=== PATIENT | male | born 1955 | race African-American/Black ===

== ENCOUNTER 2018-05-19 23:39 | Emergency (ER) | payer OTHER ==
[2018-05-19 23:50] VITALS: BP 149/90; PULSE 82; TEMP 98; BMI 35.7
--- NOTE | 2018-05-20 00:05 | PDOC ---
History of Present Illness - General Chief Complaint: Shortness of Breath Stated Complaint: R ARM SWELLING Time Seen by Provider: 05/20/18 00:04 - History of Present Illness Initial Comments: 05/20/18 00:07 The patient denies chest pain, shortness of breath, headache and dizziness. Denies fever, chills, nausea, vomit, diarrhea and constipation. Denies dysuria, frequency, urgency and hematuria. Allergies: Past History - Past Medical History Allergies/Adverse Reactions: Allergies Allergy/AdvReac Type Severity Reaction Status Date / Time No Known Allergies Allergy Verified 05/19/18 23:50 - Suicide/Smoking/Psychosocial Hx Smoking History: Never smoked Have you smoked in the past 12 months: No Information on smoking cessation initiated: No Hx Alcohol Use: No Drug/Substance Use Hx: No Review of Systems - Review of Systems Comments:: 05/20/18 00:07 GENERAL/CONSTITUTIONAL: No fever or chills. No weakness. HEAD, EYES, EARS, NOSE AND THROAT: No change in vision. No ear pain or discharge. No sore throat. CARDIOVASCULAR: No chest pain or shortness of breath RESPIRATORY: No cough, wheezing, or hemoptysis. GASTROINTESTINAL: No nausea, vomiting, diarrhea or constipation. GENITOURINARY: No dysuria, frequency, or change in urination. MUSCULOSKELETAL: No joint or muscle swelling or pain. No neck or back pain. SKIN: No rash NEUROLOGIC: No headache, vertigo, loss of consciousness, or change in strength/ sensation. ENDOCRINE: No increased thirst. No abnormal weight change HEMATOLOGIC/LYMPHATIC: No anemia, easy bleeding, or history of blood clots. ALLERGIC/IMMUNOLOGIC: No hives or skin allergy. *Physical Exam - Vital Signs Last Vital Signs Temp Pulse Resp BP Pulse Ox 98.0 F 82 16 149/90 90 L 05/19/18 23:48 05/19/18 23:48 05/19/18 23:48 05/19/18 23:48 05/19/18 23:48 - Physical Exam Comments: 05/20/18 00:07 GENERAL: Awake, alert, and fully oriented, in no acute distress HEAD: No signs of trauma, normocephalic, atraumatic EYES: PERRLA, EOMI, sclera anicteric, conjunctiva clear ENT: Auricles normal inspection, hearing grossly normal, nares patent, oropharynx clear without exudates. Moist mucosa NECK: Normal ROM, supple, no lymphadenopathy, JVD, or masses LUNGS: No distress, speaks full sentences, clear to auscultation bilaterally HEART: Regular rate and rhythm, normal S1 and S2, no murmurs, rubs or gallops, peripheral pulses normal and equal bilaterally. ABDOMEN: Soft, nontender, normoactive bowel sounds. No guarding, no rebound. No masses EXTREMITIES: Normal inspection, Normal range of motion, no edema. No clubbing or cyanosis. NEUROLOGICAL: Cranial nerves II through XII grossly intact. Normal speech, normal gait, no focal sensorimotor deficits SKIN: Warm, Dry, normal turgor, no rashes or lesions noted. *DC/Admit/Observation/Transfer - Referrals Referrals: Gregory Hester MD [Primary Care Provider] - - Patient Instructions - Post Discharge Activity
== END 2018-05-20 00:11 | disposition left against medical advice (07) ==
LOC: JER 23:39
DX: Z53.21 Procedure and treatment not carried out due to patient leaving prior to being seen by health care provider (principal)
CPT/HCPCS: 99281-25

== ENCOUNTER 2019-01-30 16:52 | Inpatient (IN) | payer OTHER ==
--- NOTE | 2019-01-30 17:42 | PDOC ---
Rapid Medical Evaluation Chief Complaint: Shortness of Breath Medical Evaluation: Allergies Allergy/AdvReac Type Severity Reaction Status Date / Time No Known Allergies Allergy Verified 01/30/19 17:36 01/30/19 17:37 I have performed a brief in-person evaluation of this patient. The patient presents with a chief complaint of: SOB, cough, worsening x 2 weeks Pertinent physical exam findings: 3 word sentences, Pursed lipped , retractions dim breath sounds I have ordered the following: EkG The patient will proceed to the ED for further evaluation. taken into ER for eval. 01/30/19 17:38 01/30/19 17:39 01/30/19 17:42 Discharge Disposition - Diagnosis SOB (shortness of breath) - Referrals - Patient Instructions - Post Discharge Activity
[2019-01-30] MEDS ORDERED: ALBUTEROL SO4 2.5/IPRATROPIUM 0.5 INH SOL 3 ML VIAL.NEB. NEB ONE ×2 (18:00→18:06)
--- NOTE | 2019-01-30 18:03 | PDOC ---
Attending Attestation - Resident Resident Name: Bhargav Nguyễn - HPI HPI: 01/30/19 18:38 Pt presents to the ED complaining of the acute onset of shortness of breath and and leg swelling unrelieved by nebs at home. Differential includes COPD exacerbation, CHF, less likely PE or PNA. Will treat with nebs and steroids, check labs, EKG and CXR. Will admit to medicine. <Pooja Irby - Last Filed: 01/30/19 18:37> - HPI HPI: The patient is a 63 year old male, with a significant PMH of COPD and asthma, who presents to the emergency department today complaining of shortness of breath for one week. Patient reports that his dyspnea on exertion has progressively worsened from baseline over the past week. Patient denies using O2 at home, but does endorse using his nebulizer. He reports bilateral lower extremity edema. Dr. Beckford advised patient to come to ED for treatment of his low O2 levels. The patient denies chest pain, headache and dizziness. Denies fever, chills, nausea, vomit, diarrhea and constipation. Denies dysuria, frequency, urgency and hematuria. Allergies: NKA Past surgical history: Social history: No reported PCP: Dr. Gregory Hester Computer Discovery Teacher: Dr. Gregory Beckford 01/30/19 19:35 - Physicial Exam PE: GENERAL: Awake, alert, and fully oriented, in no acute distress HEAD: No signs of trauma EYES: PERRLA, EOMI, sclera anicteric, conjunctiva clear ENT: Auricles normal inspection, hearing grossly normal, nares patent, oropharynx clear without exudates. Moist mucosa NECK: Normal ROM, supple, no lymphadenopathy, JVD, or masses LUNGS: +Tachypneic. +Diffuse wheezing bilaterally. +Speaking in short sentences with mild conversational dyspnea. No crackles HEART: Regular rate and rhythm, normal S1 and S2, no murmurs, rubs or gallops ABDOMEN: Soft, nontender, normoactive bowel sounds. No guarding, no rebound. No masses EXTREMITIES: +1+ pitting edema to the mid calves bilaterally. Normal range of motion. No clubbing or cyanosis. No cords, erythema, or tenderness NEUROLOGICAL: Cranial nerves II through XII grossly intact. Normal speech, normal gait SKIN: Warm, Dry, normal turgor, no rashes or lesions noted. 01/30/19 19:35 - Medical Decision Making EXAM#: TYPE/EXAM: RESULT: [id number] RAD/CHEST X-RAY PORTABLE* Shortness of breath. Since prior chest x-ray dated 10/12/2017, the cardiac silhouette appears to be slightly enlarged likely due to magnification. There are minimal bibasal atelectatic changes. The rest of the lung is clear. Mediastinum and visualized osseous structures appear intact Impression: Minimal bibasal atelectatic changes without gross evidence of infiltrates. Reported By: Richie Pyle MD 19:35 Documentation prepared by JENNIFER Silverio, acting as medical anthropologist for Job Hubbard MD. 01/30/19 19:36 <Callie Thompson - Last Filed: 01/30/19 19:38>
[2019-01-30] MEDS ORDERED: methylPREDNISolone NA SUCC 125 MG/2 ML VIAL IVPUSH ONE (18:06)
[2019-01-30] MEDS ORDERED: methylPREDNISolone NA SUCC 125 MG/2 ML VIAL ONE (18:25)
[2019-01-30 18:37] LABS: BASO % 0.8 % (0-2.0); HEMATOCRIT 41.4 % (35.4-49); HEMOGLOBIN 13.2 GM/dL (11.7-16.9); MCH 28.5 pg (25.7-33.7); MEAN CELL VOLUME 89.3 fl (80-96); MEAN PLT VOLUME 8.2 fl (7.5-11.1); MONO % 9.2 % (3.8-10.2); PLATELET COUNT 266 K/MM3 (134-434); RBC 4.64 M/mm3 (4.00-5.60); RDW 16.9 % (11.9-15.9); WHITE BLOOD COUNT 6.8 K/mm3 (4.0-10.0)
[2019-01-30 19:03] LABS: ALBUMIN 3.7 g/dl (3.4-5.0); ALK PHOS 98 U/L (45-117); ANION GAP 5 MMOL/L (8-16); BILIRUBIN,TOTAL 0.2 mg/dL (0.2-1); BLOOD UREA NITROGEN 10 mg/dL (7-18); CALCIUM 8.8 mg/dL (8.5-10.1); CHLORIDE 102 mmol/L (98-107); CO2 35 mmol/L (21-32); CREATININE 1.1 mg/dL (0.55-1.3); GLUCOSE,RANDOM 105 mg/dL (74-106); MAGNESIUM 1.9 mg/dL (1.8-2.4); N-TERMINAL BNP 296.8 pg/ml (5-125); POTASSIUM 4.2 mmol/L (3.5-5.1); SGOT/AST 13 U/L (15-37); SGPT/ALT 19 U/L (13-61); SODIUM 142 mmol/L (136-145)
[2019-01-30] MEDS ORDERED: CEFTRIAXONE 1,000 MG in DEXTROSE 5%-WATER - 50 ML IVPB ONE (19:23)
[2019-01-30] MEDS ORDERED: AZITHROMYCIN IVPB 500 MG in DEXTROSE 5%-WATER - 250 ML IVPB ONE (19:23)
--- NOTE | 2019-01-30 19:23 | PDOC ---
History of Present Illness - General Chief Complaint: Shortness of Breath Stated Complaint: PCP SENT/DIFFICULTY BREATHING Time Seen by Provider: 01/30/19 17:58 History Source: Patient Exam Limitations: No Limitations - History of Present Illness Initial Comments: 01/30/19 19:19 The patient is a 63M with a PMH of COPD, asthma who was sent by formula maker ( Dr. Beckford) for admission for SOB. The patient states that he's had worsening SOB for the past week and a half. He admits to BOBO but denies orthopnea. He admits to current SOB at rest. He denies CP, fever, chills, nausea, vomiting. Past History - Past Medical History Allergies/Adverse Reactions: Allergies Allergy/AdvReac Type Severity Reaction Status Date / Time No Known Allergies Allergy Verified 01/30/19 17:36 - Suicide/Smoking/Psychosocial Hx Smoking History: Current every day smoker Have you smoked in the past 12 months: No Number of Cigarettes Smoked Daily: 40 Information on smoking cessation initiated: No Hx Alcohol Use: No Drug/Substance Use Hx: No Review of Systems - Review of Systems Able to Perform ROS?: Yes Comments:: 01/30/19 19:25 GENERAL/CONSTITUTIONAL: No fever or chills. No weakness. HEAD, EYES, EARS, NOSE AND THROAT: No change in vision. No ear pain or discharge. No sore throat. CARDIOVASCULAR: No chest pain, palpitations, or lightheadedness. RESPIRATORY: + for SOB. No cough or hemoptysis. GASTROINTESTINAL: No nausea, vomiting, diarrhea, constipation, or abdominal pain. GENITOURINARY: No dysuria, frequency, hematuria, or change in urination. MUSCULOSKELETAL: No joint or muscle swelling or pain. No neck or back pain. SKIN: No rash or lesions. NEUROLOGIC: No headache, numbness, tingling, focal weakness, loss of consciousness, or change in strength/sensation. Is the patient limited Cymraes proficient: No *Physical Exam - Vital Signs Last Vital Signs Temp Pulse Resp BP Pulse Ox 98.0 F 81 18 141/82 100 01/30/19 17:36 01/30/19 18:44 01/30/19 18:44 01/30/19 17:36 01/30/19 18:44 - Physical Exam Comments: 01/30/19 19:28 GENERAL: Well developed, well nourished. Awake and alert. In mild distress. HEENT: Normocephalic, atraumatic. Hearing grossly normal. Moist mucous membranes. PERRLA, EOMI. No conjunctival pallor. NECK: Supple. Full ROM. No JVD. CARDIOVASCULAR: Regular rate and rhythm. No murmurs, rubs, or gallops. Distal pulses are 2+ and symmetric. PULMONARY: Mild respiratory distress. Diffuse wheezing in b/l lung marti with decreased breath sounds in bases. ABDOMINAL: Soft. Non-tender. Non-distended. No rebound or guarding. GENITOURINARY: No CVA tenderness bilaterally. MUSCULOSKELETAL: Normal range of motion at all joints. No bony deformities or tenderness. EXTREMITIES: No cyanosis. No clubbing. No edema. No calf tenderness or swelling. SKIN: Warm and dry. Normal capillary refill. No rashes. No jaundice. NEUROLOGICAL: Alert, awake, appropriate. Cranial nerves 2-12 grossly intact. Normal speech. Gait is normal without ataxia. PSYCHIATRIC: Cooperative. Good eye contact. Appropriate mood and affect. Moderate Sedation - Procedure Monitoring Vital Signs: Procedure Monitoring Vital Signs Temperature 98.0 F 01/30/19 17:36 Pulse Rate 81 01/30/19 18:44 Respiratory Rate 18 01/30/19 18:44 Blood Pressure 141/82 01/30/19 17:36 O2 Sat by Pulse Oximetry (%) 100 01/30/19 18:44 ED Treatment Course - LABORATORY CBC & Chemistry Diagram: 01/30/19 17:15 01/30/19 17:15 - ADDITIONAL ORDERS Additional order review: Laboratory Results 01/30/19 17:15 Sodium 142 Potassium 4.2 Chloride 102 Carbon Dioxide 35 H Anion Gap 5 L BUN 10 Creatinine 1.1 Creat Clearance w eGFR > 60 Random Glucose 105 Calcium 8.8 Magnesium 1.9 Total Bilirubin 0.2 AST 13 L ALT 19 Alkaline Phosphatase 98 Creatine Kinase 404 H Troponin I < 0.02 B-Natriuretic Peptide 296.8 H Total Protein 8.0 Albumin 3.7 01/30/19 17:15 RBC 4.64 MCV 89.3 MCHC 32.0 RDW 16.9 H MPV 8.2 Neutrophils % 62.0 Lymphocytes % 22.0 Monocytes % 9.2 Eosinophils % 6.0 H Basophils % 0.8 - RADIOLOGY Radiology Studies Ordered: Category Date Time Status CHEST X-RAY PORTABLE* [RAD] Stat Radiology 01/30/19 18:05 Taken - Medications Given in the ED: ED Medications Discontinued Medications Generic Name Dose Route Start Last Admin Trade Name Gaby PRN Reason Stop Dose Admin Albuterol/Ipratropium 3 amp 01/30/19 18:06 01/30/19 18:07 Duoneb - NEB 01/30/19 18:07 3 amp ONCE ONE Administration Methylprednisolone Sodium Succinate 125 mg 01/30/19 18:06 01/30/19 18:30 Solu-Medrol - IVPUSH 01/30/19 18:07 125 mg ONCE ONE Administration Medical Decision Making - Medical Decision Making 01/30/19 19:29 The patient is a 63M with a PMH of COPD, asthma who presents to the ER via PCP' s recommendations for SOB. Will treat as COPD exacerbation. Pt much more comfortable after treatments. Will admit for hypoxia workup. *DC/Admit/Observation/Transfer Diagnosis at time of Disposition: SOB (shortness of breath) - Discharge Dispostion Condition at time of disposition: Guarded Decision to Admit order: Yes - Referrals Referrals: Gregory Hester MD [Primary Care Provider] - - Patient Instructions - Post Discharge Activity
[2019-01-30 19:34] LABS: INR 1.05 (0.83-1.09); PROTHROMBIN TIME (PATIENT) 12.4 SEC (9.7-13.0)
[2019-01-30 19:48] LABS: VENOUS PH 7.34 (7.32-7.42)
[2019-01-30 19:50] LABS: VENOUS PC02 64.8 mmHg (38-52)
[2019-01-30 20:09] LABS: ARTERIAL BLD GAS O2 SATURATION 87.5 % (90-98.9); ARTERIAL BLOOD GAS BASE EXCESS 7.7 meq/l (-2-2); ARTERIAL BLOOD GAS PO2 60.3 mmHg (80-100); ARTERIAL BLOOD GAS pH 7.33 (7.35-7.45)
[2019-01-30 20:10] LABS: ALLENS TEST POSITIVE
[2019-01-30 20:11] LABS: ARTERIAL BLOOD GAS PCO2 68.2 mmHg (35-45)
[2019-01-30] MEDS ORDERED: CEFTRIAXONE 1 GM/50 ML BAG ONE (20:41)
[2019-01-30] MEDS ORDERED: FUROSEMIDE 40 MG/4 ML INJECTABLE VIAL IVPUSH ONE (21:04)
[2019-01-30] MEDS ORDERED: AZITHROMYCIN IVPB 500 MG/250 ML BAG IVPB ONE (21:20)
[2019-01-30] MEDS ORDERED: FUROSEMIDE 40 MG/4 ML INJECTABLE VIAL ONE (21:21)
[2019-01-30] MEDS ORDERED: HEPARIN NA (PORCINE) 5,000 UNITS/ML 1ML VIAL SQ SCH (22:00)
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
[2019-01-31 06:46] LABS: BASO % 0.2 % (0-2.0); HEMATOCRIT 41.8 % (35.4-49); HEMOGLOBIN 13.3 GM/dL (11.7-16.9); LYMPH % 10.4 % (8-40); MCH 28.7 pg (25.7-33.7); MCHC 31.9 g/dl (32.0-35.9); MEAN CELL VOLUME 90.2 fl (80-96); MEAN PLT VOLUME 8.6 fl (7.5-11.1); MONO % 1.3 % (3.8-10.2); NEUT % 88.1 % (42.8-82.8); PLATELET COUNT 272 K/MM3 (134-434); RBC 4.63 M/mm3 (4.00-5.60); RDW 16.6 % (11.9-15.9); WHITE BLOOD COUNT 6.1 K/mm3 (4.0-10.0)
[2019-01-31] MEDS: ALBUTEROL SO4 2.5/IPRATROPIUM 0.5 INH SOL 3 ML VIAL.NEB. NEB SCH ×4 (08:00→20:00)
[2019-01-31] MEDS ORDERED: ALBUTEROL SO4 0.083% IH SOL 2.5 MG/3 ML VIAL.NEB. NEB SCH ×2 (08:00)
[2019-01-31 08:11] LABS: ANION GAP 2 MMOL/L (8-16); BLOOD UREA NITROGEN 13 mg/dL (7-18); CALCIUM 9.1 mg/dL (8.5-10.1); CHLORIDE 98 mmol/L (98-107); CHOLESTEROL 149 mg/dL (50-200); CO2 39 mmol/L (21-32); CREATININE 0.9 mg/dL (0.55-1.3); GLUCOSE,RANDOM 124 mg/dL (74-106); HDL CHOLESTEROL 58 mg/dL (40-60); SODIUM 138 mmol/L (136-145); TRIGLYCERIDES 51 mg/dL (0-150)
[2019-01-31] MEDS ORDERED: METOPROLOL TARTRATE 25 MG TABLET (FP) PO SCH (10:00)
[2019-01-31] MEDS ORDERED: methylPREDNISolone NA SUCC 40 MG/1 ML VIAL IVPUSH SCH (10:00)
[2019-01-31] MEDS ORDERED: TIOTROPIUM BROMIDE 2.5 MCG (SPIRIVA) RESPIMAT INHALER IH SCH (10:00)
[2019-01-31] MEDS: LISINOPRIL 10 MG TABLET (FP) PO SCH (10:08)
[2019-01-31] MEDS: AZITHROMYCIN 250 MG TABLET PO SCH (10:08)
[2019-01-31] MEDS: POTASSIUM CHLORIDE TABS 10 MEQ TABLET.ER (FP) PO SCH (10:08)
--- NOTE | 2019-01-31 10:33 | PN ---
Teaching Attending Note Name of Resident: Fco Duong ATTENDING PHYSICIAN STATEMENT I saw and evaluated the patient. I reviewed the resident's note and discussed the case with the resident. I agree with the resident's findings and plan as documented. SUBJECTIVE:states breathing is much improved. was recently diagnosed with " heart failure" 6 months ago when admitted to [facility] but has never been admitted for breathing issues. was not started on any new medications since his last hospitalization. denies CP, fever, chills, N/V/C/D, does not have orthopnea as he always sleeps on 2 pillows OBJECTIVE: Last Vital Signs Temp Pulse Resp BP Pulse Ox 97.6 F 84 20 153/75 96 01/31/19 10:10 01/31/19 10:10 01/31/19 10:10 01/31/19 10:10 01/31/19 03:19 Intake & Output 01/28/19 01/29/19 01/30/19 01/31/19 23:59 23:59 23:59 23:59 Intake Total 690 Balance 690 Weight 244 lb 236 lb General NAD CV S1 S2 RRR no murmur/rub/gallop Lungs diffuse expiratory wheezing Abdomen soft NT/ND obese Extremities no pedal edema ASSESSMENT AND PLAN: 63yo M with PMH CHF, HTN and COPD presented to the ER wtih progressively worsening SOB x2 weeks and founf to be in hypercapnic respiratory failure 1. Acute hypercapnic respiratory failure- due to COPD exacerbation. was on bipap overnight and now on 2L NC saturating 95%. repeat ABG CT chest ordered. cont wtih Medrol 60mg Q6H, inhalers and nebulizers. 2. Heart failure- unknown if systolic vs diastolic. does not appear to be volume overloaded at this time. with normal BNP. echo ordered by night team and will follow up. cardio consulted. will confirm home medications and re-start them. would hold off on lasix IV at this time. cardiac markers neg x2 3. HTN- slightly above goal. will titrate medications as needed 4. DVT ppx- lovenox
--- NOTE | 2019-01-31 10:54 | PN ---
Progress Note (short form) - Note Progress Note: PULMONARY CONSULTATION DICTATED 01/31/19 IMP ACUTE ON CHRONIC HYPOXEMIC/HYPERCAPNEIC RESPIRATORY FAILURE ADVANCED COPD WITH ACUTE EXACERBATION HTN ? H/O CHF TOBACCO ABUSE LIKELY JORGE PLAN IV STEROIDS INHALED BRONCHODILATORS SUPPLEMENTAL O2 NIPPV NEEDED LASIX PO CARDIOLOGY EVALUATION DR VEE Problem List - Problems (1) Acute on chronic respiratory failure with hypoxia and hypercapnia Code(s): J96.21 - ACUTE AND CHRONIC RESPIRATORY FAILURE WITH HYPOXIA; J96.22 - ACUTE AND CHRONIC RESPIRATORY FAILURE WITH HYPERCAPNIA (2) SOB (shortness of breath) Code(s): R06.02 - SHORTNESS OF BREATH (3) COPD exacerbation Code(s): J44.1 - CHRONIC OBSTRUCTIVE PULMONARY DISEASE W (ACUTE) EXACERBATION (4) HTN (hypertension) Code(s): I10 - ESSENTIAL (PRIMARY) HYPERTENSION (5) Tobacco abuse Code(s): Z72.0 - TOBACCO USE (6) Tobacco abuse counseling Code(s): Z71.6 - TOBACCO ABUSE COUNSELING
--- NOTE | 2019-01-31 11:01 | ECHO ---
Name: MAYI COOLEY Exam:Adult Echocardiogram Study Date: 01/31/2019 10:15 AM Age: 63 yrs Reason For Study: Evaluate for CHF Height: 69 in Weight: 244 lb BSA: 2.2 m2 MMode/2D Measurements & Calculations IVSd: 1.1 cm ACS: 1.9 cm LVIDd: 4.4 cm LVIDs: 3.4 cm LVPWd: 1.3 cm EDV(Teich): 87.3 ml LVOT diam: 2.0 cm ESV(Teich): 47.5 ml RV S Maurizio: 13.2 cm/sec Doppler Measurements & Calculations Med Peak E' Maurizio: 8.4 cm/sec Lat Peak E' Maurizio: 16.4 cm/sec Procedure The study was technically difficult with many images being suboptimal in quality. Left Ventricle Left ventricular systolic function is grossly normal. Ejection Fraction = 50-55%. Regional wall motio n abnormalities cannot be excluded due to limited visualization. Right Ventricle The right ventricle is grossly normal size. The right ventricular systolic function is grossly normal . Atria Normal left and right atrial size and function. Mitral Valve The mitral valve is grossly normal. There is no mitral valve stenosis. There is mild mitral regurgita tion. Tricuspid Valve The tricuspid valve is not well visualized, but is grossly normal. Aortic Valve There is mild aortic sclerosis.;. No hemodynamically significant valvular aortic stenosis. No aortic regurgitation is present. Pulmonic Valve The pulmonic valve is not well visualized. Great Vessels The aortic root is normal size. Pericardium/Pleura There is no pericardial effusion. Interpretation Summary The study was technically difficult with many images being suboptimal in quality. Regional wall motion abnormalities cannot be excluded due to limited visualization. Left ventricular systolic function is grossly normal. Ejection Fraction = 50-55%. There is mild mitral regurgitation. There is mild aortic sclerosis.; There is no pericardial effusion. MD Urbina *Anum 01/31/2019 11:01 AM
[2019-01-31] MEDS ORDERED: ALBUTEROL SO4 2.5/IPRATROPIUM 0.5 INH SOL 3 ML VIAL.NEB. NEB PRN (11:14)
[2019-01-31] MEDS ORDERED: PT OWN MED DRAWER 7, Y5N ONE ×4 (11:16→17:52)
[2019-01-31] MEDS: ENOXAPARIN NA (PORCINE) 40 MG/0.4 ML DISP.SYRIN SQ SCH (11:31)
[2019-01-31] MEDS: methylPREDNISolone NA SUCC 40 MG/1 ML VIAL IVPUSH SCH ×3 (11:31→22:45)
[2019-01-31] MEDS: INSULIN SLIDING SCALE (NOVOLOG) 1 VIAL SQ SCH ×3 (11:40→22:45)
[2019-01-31 12:17] LABS: ARTERIAL BLD GAS O2 SATURATION 88.6 % (90-98.9); ARTERIAL BLOOD GAS PCO2 62.1 mmHg (35-45); ARTERIAL BLOOD GAS PO2 58.5 mmHg (80-100)
[2019-01-31 12:19] LABS: ALLENS TEST POSITIVE
--- NOTE | 2019-01-31 12:44 | PN ---
Progress Note, Physician Chief Complaint: patient seen and examined sitting up in bed says his breathing is better - Current Medication List Current Medications: Active Medications Albuterol Sulfate (Ventolin 0.083% Nebulizer Soln -) 1 amp NEB Q4H PRN PRN Reason: SHORT OF BREATH/WHEEZING Albuterol/Ipratropium (Duoneb -) 1 amp NEB RQID [facility] Last Admin: 01/31/19 11:40 Dose: 1 amp Atorvastatin Calcium (Lipitor -) 80 mg PO HS [facility] Azithromycin (Zithromax -) 500 mg PO DAILY [facility] Last Admin: 01/31/19 10:08 Dose: 500 mg Enoxaparin Sodium (Lovenox -) 40 mg SQ DAILY [facility] Last Admin: 01/31/19 11:31 Dose: 40 mg Ferrous Sulfate (Feosol -) 325 mg PO DAILY [facility] Furosemide (Lasix -) 40 mg PO DAILY [facility] Insulin Aspart (Novolog Vial Sliding Scale -) 0 vial SQ ACHS [facility]; Protocol Last Admin: 01/31/19 11:40 Dose: Not Given Lisinopril (Prinivil) 10 mg PO DAILY [facility] Last Admin: 01/31/19 10:08 Dose: 10 mg Methylprednisolone Sodium Succinate (Solu-Medrol -) 60 mg IVPUSH Q6H-IV [facility] Last Admin: 01/31/19 11:31 Dose: 60 mg Nicotine (Nicoderm Patch -) 14 mg TD ONCE ONE Stop: 01/31/19 19:49 Nicotine (Nicoderm Patch -) 21 mg TD [facility] Potassium Chloride (K-Dur -) 10 meq PO DAILY [facility] Last Admin: 01/31/19 10:08 Dose: 10 meq Ranitidine HCl (Zantac -) 300 mg PO DAILY [facility] - Objective Vital Signs: Vital Signs Temperature 97.6 F 01/31/19 10:10 Pulse Rate 84 01/31/19 10:10 Respiratory Rate 20 01/31/19 10:10 Blood Pressure 153/75 01/31/19 10:10 O2 Sat by Pulse Oximetry (%) 96 01/31/19 03:19 Constitutional: Yes: Calm Cardiovascular: Yes: Regular Rate and Rhythm, S1, S2 Respiratory: Yes: Wheezes Gastrointestinal: Yes: Normal Bowel Sounds, Soft Edema: No Neurological: Yes: Alert, Oriented Labs: CBC, BMP 01/31/19 06:00 01/31/19 06:00 INR, PTT INR 1.05 (0.83-1.09) 01/30/19 17:15 Problem List - Problems (1) SOB (shortness of breath) Assessment/Plan: oxygen steroids iv abx chest ct done report pending lovenox lasix echo report noted EF 55% left ventricle systolic function is normal Code(s): R06.02 - SHORTNESS OF BREATH
[2019-01-31] MEDS ORDERED: DEXTROSE 5%-WATER - 50 ML IVPB ONE (13:12)
[2019-01-31] MEDS ORDERED: cefTRIAXone SODIUM 1 GM VIAL ONE (13:12)
--- NOTE | 2019-01-31 13:18 | PN ---
Physical Exam: SUBJECTIVE: Patient seen and examined at bedside. no acute events since admission. pt feels better. states breathing is much improved. meds have been reconciled. denies CP, fever, chills, N/V/C/D, does not have orthopnea as he always sleeps on 2 pillows OBJECTIVE: Vital Signs Period Temp Pulse Resp BP Sys/Felix Pulse Ox Last 24 Hr 97.6 F-98.9 F 81-90 18-30 141-158/75-98 88-100 GENERAL: The patient is awake, alert, and fully oriented, in no acute distress. HEAD: Normal with no signs of trauma. EYES: PERRL, extraocular movements intact, sclera anicteric, conjunctiva clear. No ptosis. ENT: Ears normal, nares patent, oropharynx clear without exudates, moist mucous membranes. NECK: Trachea midline, full range of motion, supple. LUNGS: Lungs diffuse expiratory wheezing HEART: Regular rate and rhythm, S1, S2 without murmur, rub or gallop. ABDOMEN: Soft, nontender, nondistended, normoactive bowel sounds, no guarding, no rebound, no hepatosplenomegaly, no masses. EXTREMITIES: 2+ pulses, warm, well-perfused, no edema. NEUROLOGICAL: Cranial nerves II through XII grossly intact. Normal speech, gait not observed. PSYCH: Normal mood, normal affect. SKIN: Warm, dry, normal turgor, no rashes or lesions noted Laboratory Results - last 24 hr 01/30/19 01/30/19 01/30/19 17:15 17:15 17:15 WBC 6.8 RBC 4.64 Hgb 13.2 Hct 41.4 MCV 89.3 MCH 28.5 MCHC 32.0 RDW 16.9 H Plt Count 266 MPV 8.2 Absolute Neuts (auto) 4.2 Neutrophils % 62.0 Lymphocytes % 22.0 Monocytes % 9.2 Eosinophils % 6.0 H Basophils % 0.8 Nucleated RBC % 0 PT with INR 12.40 INR 1.05 Anticoagulation Therapy Puncture Site ABG pH ABG pCO2 at Pt Temp ABG pO2 at Pt Temp ABG HCO3 ABG O2 Sat (Measured) ABG O2 Content ABG Base Excess Jagdish Test VBG pH POC VBG pCO2 POC VBG pO2 VBG HCO3 VBG O2 Sat (Virginie) VBG Base Excess Carboxyhemoglobin Methemoglobin O2 Delivery Device Oxygen Flow Rate Vent Mode Vent Rate Mechanical Rate Pressure Support Vent Sodium 142 Potassium 4.2 Chloride 102 Carbon Dioxide 35 H Anion Gap 5 L BUN 10 Creatinine 1.1 Creat Clearance w eGFR > 60 POC Glucometer Random Glucose 105 Hemoglobin A1c % Calcium 8.8 Magnesium 1.9 Total Bilirubin 0.2 AST 13 L ALT 19 Alkaline Phosphatase 98 Creatine Kinase 404 H Creatine Kinase Index 0.8 CK-MB (CK-2) 3.5 Troponin I < 0.02 B-Natriuretic Peptide 296.8 H Total Protein 8.0 Albumin 3.7 Triglycerides Cholesterol Total LDL Cholesterol HDL Cholesterol 01/30/19 01/30/19 01/31/19 18:34 19:30 06:00 WBC 6.1 RBC 4.63 Hgb 13.3 Hct 41.8 MCV 90.2 MCH 28.7 MCHC 31.9 L RDW 16.6 H Plt Count 272 MPV 8.6 Absolute Neuts (auto) 5.4 Neutrophils % 88.1 H D Lymphocytes % 10.4 D Monocytes % 1.3 L D Eosinophils % 0.0 D Basophils % 0.2 Nucleated RBC % 0 PT with INR INR Anticoagulation Therapy No Result Required. Puncture Site Left radial ABG pH 7.33 L ABG pCO2 at Pt Temp 68.2 H* ABG pO2 at Pt Temp 60.3 L ABG HCO3 35.3 H ABG O2 Sat (Measured) 87.5 L ABG O2 Content 15.0 ABG Base Excess 7.7 H Jagdish Test Positive VBG pH 7.34 POC VBG pCO2 64.8 H* POC VBG pO2 130.0 H VBG HCO3 34.1 L* VBG O2 Sat (Virginie) 98.4 H* VBG Base Excess 6.8 H Carboxyhemoglobin 1.0 Methemoglobin 0.1 L O2 Delivery Device Nasal Oxygen Flow Rate 2l Vent Mode No Result Required. Vent Rate No Result Required. Mechanical Rate No Result Required. Pressure Support Vent No Result Required. Sodium Potassium Chloride Carbon Dioxide Anion Gap BUN Creatinine Creat Clearance w eGFR POC Glucometer Random Glucose Hemoglobin A1c % Calcium Magnesium Total Bilirubin AST ALT Alkaline Phosphatase Creatine Kinase Creatine Kinase Index CK-MB (CK-2) Troponin I B-Natriuretic Peptide Total Protein Albumin Triglycerides Cholesterol Total LDL Cholesterol HDL Cholesterol 01/31/19 01/31/19 01/31/19 06:00 06:00 10:16 WBC RBC Hgb Hct MCV MCH MCHC RDW Plt Count MPV Absolute Neuts (auto) Neutrophils % Lymphocytes % Monocytes % Eosinophils % Basophils % Nucleated RBC % PT with INR INR Anticoagulation Therapy Puncture Site Right radial ABG pH 7.40 ABG pCO2 at Pt Temp 62.1 H* ABG pO2 at Pt Temp 58.5 L ABG HCO3 37.8 H ABG O2 Sat (Measured) 88.6 L ABG O2 Content 15.7 ABG Base Excess 11.0 H Jagdish Test Positive VBG pH POC VBG pCO2 POC VBG pO2 VBG HCO3 VBG O2 Sat (Virginie) VBG Base Excess Carboxyhemoglobin Methemoglobin O2 Delivery Device Oxygen Flow Rate Yes Vent Mode Vent Rate Mechanical Rate Pressure Support Vent Sodium 138 Potassium 5.0 Chloride 98 Carbon Dioxide 39 H Anion Gap 2 L BUN 13 Creatinine 0.9 Creat Clearance w eGFR > 60 POC Glucometer Random Glucose 124 H Hemoglobin A1c % 6.3 Calcium 9.1 Magnesium 2.0 Total Bilirubin AST ALT Alkaline Phosphatase Creatine Kinase Creatine Kinase Index CK-MB (CK-2) Troponin I < 0.02 B-Natriuretic Peptide Total Protein Albumin Triglycerides 51 Cholesterol 149 Total LDL Cholesterol 80 HDL Cholesterol 58 01/31/19 01/31/19 11:38 11:45 WBC RBC Hgb Hct MCV MCH MCHC RDW Plt Count MPV Absolute Neuts (auto) Neutrophils % Lymphocytes % Monocytes % Eosinophils % Basophils % Nucleated RBC % PT with INR INR Anticoagulation Therapy Puncture Site ABG pH ABG pCO2 at Pt Temp ABG pO2 at Pt Temp ABG HCO3 ABG O2 Sat (Measured) ABG O2 Content ABG Base Excess Jagdish Test VBG pH POC VBG pCO2 POC VBG pO2 VBG HCO3 VBG O2 Sat (Virginie) VBG Base Excess Carboxyhemoglobin Methemoglobin O2 Delivery Device Oxygen Flow Rate Vent Mode Vent Rate Mechanical Rate Pressure Support Vent Sodium Potassium Chloride Carbon Dioxide Anion Gap BUN Creatinine Creat Clearance w eGFR POC Glucometer 137 Random Glucose Hemoglobin A1c % Calcium Magnesium Total Bilirubin AST ALT Alkaline Phosphatase Creatine Kinase 262 Creatine Kinase Index CK-MB (CK-2) Troponin I 0.03 B-Natriuretic Peptide Total Protein Albumin Triglycerides Cholesterol Total LDL Cholesterol HDL Cholesterol Active Medications Generic Name Dose Route Start Last Admin Trade Name Freq PRN Reason Stop Dose Admin Albuterol Sulfate 1 amp 01/31/19 07:17 Ventolin 0.083% Nebulizer Soln - NEB Q4H PRN SHORT OF BREATH/WHEEZING Albuterol/Ipratropium 1 amp 01/31/19 12:00 01/31/19 11:40 Duoneb - NEB 1 amp RQID [facility] Administration Atorvastatin Calcium 80 mg 01/31/19 22:00 Lipitor - PO HS [facility] Azithromycin 500 mg 01/31/19 10:00 01/31/19 10:08 Zithromax - PO 500 mg DAILY [facility] Administration Enoxaparin Sodium 40 mg 01/31/19 10:00 01/31/19 11:31 Lovenox - SQ 40 mg DAILY [facility] Administration Ferrous Sulfate 325 mg 01/31/19 11:15 Feosol - PO DAILY [facility] Furosemide 40 mg 02/01/19 10:00 Lasix - PO DAILY [facility] Ceftriaxone Sodium 1 gm/ 50 mls @ 100 mls/hr 01/31/19 12:45 Dextrose IVPB DAILY [facility] Protocol Insulin Aspart 0 vial 01/31/19 11:00 01/31/19 11:40 Novolog Vial Sliding Scale - SQ Not Given ACHS [facility] Protocol Lisinopril 10 mg 01/31/19 10:00 01/31/19 10:08 Prinivil PO 10 mg DAILY [facility] Administration Methylprednisolone Sodium Succinate 60 mg 01/31/19 09:00 01/31/19 11:31 Solu-Medrol - IVPUSH 60 mg Q6H-IV [facility] Administration Nicotine 14 mg 01/31/19 19:48 Nicoderm Patch - TD 01/31/19 19:49 ONCE ONE Nicotine 21 mg 01/31/19 22:00 Nicoderm Patch - TD [facility] Potassium Chloride 10 meq 01/31/19 10:00 01/31/19 10:08 K-Dur - PO 10 meq DAILY [facility] Administration Ranitidine HCl 300 mg 01/31/19 11:15 Zantac - PO DAILY [facility] ASSESSMENT/PLAN: 63yo M with PMH CHF?, HTN, asthma and COPD presented to the ER wtih progressively worsening SOB x2 weeks and found to be in hypercapnic respiratory failure. meds have been reconciled #Acute hypercapneic respiratory failure 2/2 COPD exacerbation - was on bipap overnight and now on 2L NC saturating 95%. rpt ABG w/ nl pH and improving CO2, pt likely at baseline now. -Bipap prn -smoking cessation counseling -nicotine patch ordered -duonebs q6h -albuterol neb q4hrs prn -methylprednisone 60mg IV q6hrs -pulmonary consult- Dr. Beckford -f/u CT chest #CHF - unknown if systolic vs diastolic. does not appear to be volume overloaded at this time. BNP nl -telemetry -s/p lasix 40mg IV in ED -dc metoprolol 25mg po bid -lisinopril 10mg po daily -c/w home dose lasix 40 po -cardiology consult -f/u echo -salt restriction -fluid restriction -troponin neg x3 -home potassium supplement -A1c 6.2 #HTN -lisinopril as above, titrate dose accordingly HLD - has high ASCVD score -home dose lipitor -lipid panel nl #DVT ppx -lovenox sq 40 FEN PO hydration replete prn diet - low Na dispo tele Visit type - Emergency Visit Emergency Visit: Yes ED Registration Date: 01/30/19 Care time: The patient presented to the Emergency Department on the above date and was hospitalized for further evaluation of their emergent condition. - New Patient This patient is new to me today: Yes Date on this admission: 01/31/19 - Critical Care Critical Care patient: No
[2019-01-31] MEDS: FERROUS SO4 325 MG TABLET (FP) PO SCH (13:31)
[2019-01-31] MEDS: RANITIDINE HCL 150 MG TABLET (FP) PO SCH (13:31)
[2019-01-31] MEDS: CEFTRIAXONE 1 GM in DEXTROSE 5%-WATER - 50 ML IVPB SCH (13:32)
--- NOTE | 2019-01-31 14:21 | EKG ---
Test Reason : Blood Pressure : / mmHG Vent. Rate : 081 BPM Atrial Rate : 081 BPM P-R Int : 182 ms QRS Dur : 094 ms QT Int : 382 ms P-R-T Axes : 054 079 065 degrees QTc Int : 443 ms NORMAL SINUS RHYTHM T WAVE ABNORMALITY, CONSIDER ANTEROLATERAL ISCHEMIA ABNORMAL ECG NO PREVIOUS ECGS AVAILABLE Confirmed by DIRK FLORES MD ([id number]) on 01/31/2019 2:20:58 PM Referred By: Confirmed By:DIRK FLORES MD
--- NOTE | 2019-01-31 14:28 | CONS ---
DATE OF CONSULTATION: 01/31/2019 REFERRING PHYSICIAN: Igor Quick MD HISTORY: The patient is a 63-year-old black male known to me from previous office visits with past medical history of COPD on inhaled bronchodilators noncompliant with longstanding history of tobacco use currently still smoking admitted to [facility] with the complaint of a 3- to [id number] of increasing shortness of breath, dyspnea on exertion. The patient came to my office yesterday for follow up visit. I have not seen the patient in over a year and a half. He was previously prescribed long acting inhaled bronchodilators as well as anticholinergic but stopped taking them many months ago. Pt presented to my office yesterday with increasing shortness of breath and dyspnea on exertion. He denied any complaints of chest pain, nausea, or vomiting. He did have a cough productive of clear sputum. He was states that he is only able to ambulate a couple of feet without developing shortness of breath. He also has increasing orthopnea and PND. There was no history of DVT or PE. When I examined him in the office, he was noted to be hypoxic with an O2 saturation of 75% on room air at which time he was advised to go to the emergency room. On admission, he was placed on inhaled bronchodilators and IV steroids and transferred to the medical floor for further management. He had blood gas performed, which revealed acute on chronic hypercapnic, hypoxemic respiratory failure. The patient is not on home oxygen therapy. In the past, his O2 was 92 on room air approximately an hour and a half ago. PAST MEDICAL HISTORY: Again, advanced COPD, hypertension, hypercholesterolemia. REVIEW OF SYSTEMS: Positive shortness of breath, positive orthopnea, PND. No chest pain, no palpitations. Positive cough, positive wheezing. No abdominal pain. Positive lower extremity edema. CURRENT MEDICATIONS: Include Solu-Medrol, Prinivil, Zithromax, Lovenox, Nicoderm, albuterol, DuoNeb, Zantac, Lipitor, Lasix, and K-Dur. PHYSICAL EXAMINATION: General: The patient is an obese male well developed, awake, alert feeling better in no acute respiratory distress. Vital Signs: He is afebrile. Blood pressure 153/75, respiratory rate 20, O2 saturation 90% on 3 L. HEENT: Normocephalic and atraumatic. Neck: Supple. Heart: Regular S1, S2. Chest: Diffuse bilateral wheezes. Abdomen: Soft. Bowel sounds positive. Extremities: Bilateral lower extremity edema. LABORATORIES: WBC 6.1, hemoglobin 13.3, hematocrit 41.8 with a platelet count of 272,000. INR 1.05. Blood gas initially 7.33, PCO2 of 68, PO2 of 60, bicarbonate 35, saturation 87 that was on 2 L nasal cannula. Most recent this morning 7.40, PCO2 of 62, PO2 of 58, bicarbonate of 37, saturation 88.6. BUN 13, creatinine 0.9, BNP 296. Of note, this patient had PFT yesterday in my office that revealed severe obstruction with some improvement post bronchodilator. Chest CT, no acute infiltrates or effusions. COPD with central lobular emphysema again seen. Nodularity in the right upper lobe. No change from exam October. IMPRESSION: 1. Acute on chronic hypercapnic, hypoxemic respiratory failure secondary to chronic obstructive pulmonary disease exacerbation. 2. History of hypertension. 3. ? component of congestive heart failure. PLAN: IV steroids. Inhaled bronchodilators. Supplemental O2. Lasix. Daily weighs. We will obtain sleep screen. Smoking cessation counseled. Continue Nicoderm patch. TRAN VEE M.D. BENNY/[id number] MTDD
--- NOTE | 2019-01-31 15:20 | CON.CARD ---
Consult Consult Specialty:: Cardiology Reason for Consultation:: BOBO - History of Present Illness Chief Complaint: SOB History of Present Illness: This is a 63 year old male with a long smoking history and COPD. He has been complaining of worsening SOB fir the past 2 weeks. He also has orthopnea. EKG NSR at 81 BPM with normal intervals, normal axis, and NSSTTW changes. Troponin negative BNP 296 Echocardiogram 02/01/19 Normal LV function EF 50 - 55% mild MR Mild TR - Alcohol/Substance Use Hx Alcohol Use: No - Smoking History Smoking history: Current every day smoker Have you smoked in the past 12 months: No Aproximately how many cigarettes per day: 40 Home Medications - Allergies Allergies/Adverse Reactions: Allergies Allergy/AdvReac Type Severity Reaction Status Date / Time No Known Allergies Allergy Verified 01/30/19 17:36 - Home Medications Home Medications: Ambulatory Orders Atorvastatin Ca [Lipitor] 80 mg PO HS 01/30/19 Ferrous Sulfate 325 mg PO DAILY 01/30/19 Furosemide [Lasix] 40 mg PO DAILY 01/30/19 Lisinopril 10 mg PO DAILY 01/30/19 Potassium Chloride 10 meq PO DAILY 01/30/19 Ranitidine [Zantac -] 300 mg PO ONCE 01/30/19 Albuterol 2.5/Ipratropium 0.5 [Duoneb -] 1 amp NEB PRN 01/31/19 Prednisone [Deltasone] 20 mg PO DAILY 01/31/19 Vital Signs: Vital Signs Temperature 97.6 F 01/31/19 10:10 Pulse Rate 84 01/31/19 10:10 Respiratory Rate 20 01/31/19 10:10 Blood Pressure 153/75 01/31/19 10:10 O2 Sat by Pulse Oximetry (%) 90 L 01/31/19 09:00 Constitutional: Yes: Mild Distress HENT: Yes: WNL Neck: Yes: WNL Respiratory: Yes: Wheezes (Bilaterally) Gastrointestinal: Yes: Soft Cardiovascular: Yes: Regular Rate and Rhythm (NL S1S2 no MRHG) JVD: No Edema: LLE: 1+, RLE: 1+ Neurological: Yes: Alert, Oriented - Other Data Labs, Other Data: CBC, BMP 01/31/19 06:00 01/31/19 06:00 INR, PTT INR 1.05 (0.83-1.09) 01/30/19 17:15 Troponin, BNP 01/30/19 01/31/19 01/31/19 17:15 06:00 11:45 Troponin I < 0.02 < 0.02 0.03 B-Natriuretic Peptide 296.8 H Troponin, BNP 01/30/19 01/31/19 01/31/19 17:15 06:00 11:45 Troponin I < 0.02 < 0.02 0.03 B-Natriuretic Peptide 296.8 H Assessment/Plan 63 year old male with a long smoking history and COPD. He has been complaining of worsening SOB fir the past 2 weeks. He also has orthopnea. EKG NSR at 81 BPM with normal intervals, normal axis, and NSSTTW changes. Troponin negative BNP 296 Echocardiogram 02/01/19 Normal LV function EF 50 - 55% mild MR Mild TR COPD exacerbation Also evidence for HFpEF Would give Lasix 40 IVSS BID Follow I's/O's/Wt's/Lytes Continue Lisinopril 10 mg daily Will follow with you.
[2019-01-31] MEDS ORDERED: NICOTINE 14 MG/24 HOURS TOPICAL PATCH TD ONE (19:48)
[2019-01-31] MEDS ORDERED: ATORVASTATIN CA 40 MG TABLET (FP) PO SCH (22:00)
[2019-01-31] MEDS: NICOTINE 21 MG/24 HOURS TOPICAL PATCH TD SCH (22:45)
[2019-01-31] MEDS: ATORVASTATIN CA 80 MG TABLET (FP) PO SCH (22:45)
[2019-02-01] MEDS: methylPREDNISolone NA SUCC 40 MG/1 ML VIAL IVPUSH SCH ×4 (02:58→20:53)
[2019-02-01] MEDS: ALBUTEROL SO4 0.083% IH SOL 2.5 MG/3 ML VIAL.NEB. NEB PRN (05:30)
[2019-02-01] MEDS: INSULIN SLIDING SCALE (NOVOLOG) 1 VIAL SQ SCH ×4 (06:02→21:00)
[2019-02-01 06:16] LABS: BASO % 0.2 % (0-2.0); HEMATOCRIT 40.1 % (35.4-49); HEMOGLOBIN 12.7 GM/dL (11.7-16.9); LYMPH % 9.6 % (8-40); MCHC 31.6 g/dl (32.0-35.9); MEAN CELL VOLUME 88.5 fl (80-96); MEAN PLT VOLUME 8.5 fl (7.5-11.1); MONO % 2.2 % (3.8-10.2); PLATELET COUNT 301 K/MM3 (134-434); RBC 4.53 M/mm3 (4.00-5.60); RDW 16.5 % (11.9-15.9); WHITE BLOOD COUNT 10.5 K/mm3 (4.0-10.0)
[2019-02-01 07:09] LABS: ALBUMIN 3.5 g/dl (3.4-5.0); ALK PHOS 91 U/L (45-117); BILIRUBIN,TOTAL 0.1 mg/dL (0.2-1); SGPT/ALT 16 U/L (13-61); TOT PROT 7.9 g/dl (6.4-8.2)
[2019-02-01] MEDS: ALBUTEROL SO4 2.5/IPRATROPIUM 0.5 INH SOL 3 ML VIAL.NEB. NEB SCH ×4 (08:00→20:40)
--- NOTE | 2019-02-01 08:24 | PN ---
Progress Note, Physician - Current Medication List Current Medications: Active Medications Albuterol Sulfate (Ventolin 0.083% Nebulizer Soln -) 1 amp NEB Q4H PRN PRN Reason: SHORT OF BREATH/WHEEZING Last Admin: 02/01/19 05:30 Dose: 1 amp Albuterol/Ipratropium (Duoneb -) 1 amp NEB RQID [facility] Last Admin: 01/31/19 20:00 Dose: 1 amp Atorvastatin Calcium (Lipitor -) 80 mg PO HS [facility] Last Admin: 01/31/19 22:45 Dose: 80 mg Azithromycin (Zithromax -) 500 mg PO DAILY [facility] Last Admin: 01/31/19 10:08 Dose: 500 mg Enoxaparin Sodium (Lovenox -) 40 mg SQ DAILY [facility] Last Admin: 01/31/19 11:31 Dose: 40 mg Ferrous Sulfate (Feosol -) 325 mg PO DAILY [facility] Last Admin: 01/31/19 13:31 Dose: 325 mg Furosemide (Lasix -) 40 mg PO DAILY [facility] Guaifenesin (Robitussin -) 10 ml PO Q4H PRN PRN Reason: COUGH Ceftriaxone Sodium 1 gm/ (Dextrose) 50 mls @ 100 mls/hr IVPB DAILY [facility]; Protocol Last Admin: 01/31/19 13:32 Dose: 100 mls/hr Insulin Aspart (Novolog Vial Sliding Scale -) 0 vial SQ ACHS [facility]; Protocol Last Admin: 02/01/19 06:02 Dose: 2 units Lisinopril (Prinivil) 10 mg PO DAILY [facility] Last Admin: 01/31/19 10:08 Dose: 10 mg Methylprednisolone Sodium Succinate (Solu-Medrol -) 60 mg IVPUSH Q6H-IV [facility] Last Admin: 02/01/19 02:58 Dose: 60 mg Nicotine (Nicoderm Patch -) 21 mg TD HS [facility] Last Admin: 01/31/19 22:45 Dose: 21 mg Potassium Chloride (K-Dur -) 10 meq PO DAILY [facility] Last Admin: 01/31/19 10:08 Dose: 10 meq Ranitidine HCl (Zantac -) 300 mg PO DAILY [facility] Last Admin: 01/31/19 13:31 Dose: 300 mg - Objective Vital Signs: Vital Signs Temperature 97.5 F L 02/01/19 06:00 Pulse Rate 89 03/09/19 06:00 Respiratory Rate 20 02/01/19 06:00 Blood Pressure 155/80 02/01/19 06:00 O2 Sat by Pulse Oximetry (%) 97 02/01/19 05:29 Cardiovascular: Yes: S1, S2 Respiratory: Yes: On Nasal O2, Rales Gastrointestinal: Yes: Normal Bowel Sounds, Soft Edema: Yes Labs: CBC, BMP 02/01/19 05:15 INR, PTT INR 1.05 (0.83-1.09) 01/30/19 17:15 Problem List - Problems (1) CHF (congestive heart failure) Assessment/Plan: -IV LASIX -CARDIO ON BOARD -FOLLOW LABS -EF 55% Code(s): I50.9 - HEART FAILURE, UNSPECIFIED (2) COPD exacerbation Assessment/Plan: -IV STEROIDS AND ABX -NEBS -PULM ON BOARD CT NOTED--PULM NODULE Code(s): J44.1 - CHRONIC OBSTRUCTIVE PULMONARY DISEASE W (ACUTE) EXACERBATION (3) HTN (hypertension) Code(s): I10 - ESSENTIAL (PRIMARY) HYPERTENSION
[2019-02-01] MEDS ORDERED: PT OWN MED DRAWER 7, Y5N ONE (09:15)
[2019-02-01] MEDS ORDERED: DEXTROSE 5%-WATER - 50 ML IVPB ONE (09:15)
[2019-02-01] MEDS ORDERED: cefTRIAXone SODIUM 1 GM VIAL ONE (09:15)
[2019-02-01] MEDS: AZITHROMYCIN 250 MG TABLET PO SCH (09:18)
[2019-02-01] MEDS: FERROUS SO4 325 MG TABLET (FP) PO SCH (09:18)
[2019-02-01] MEDS: guaiFENesin 200 MG/10 ML 10 ML UNIT-DOSE CUPS PO PRN ×2 (09:19→15:56)
[2019-02-01] MEDS: LISINOPRIL 10 MG TABLET (FP) PO SCH (09:19)
[2019-02-01] MEDS: CEFTRIAXONE 1 GM in DEXTROSE 5%-WATER - 50 ML IVPB SCH (09:19)
[2019-02-01] MEDS: RANITIDINE HCL 150 MG TABLET (FP) PO SCH (09:19)
[2019-02-01] MEDS: ENOXAPARIN NA (PORCINE) 40 MG/0.4 ML DISP.SYRIN SQ SCH (09:20)
[2019-02-01] MEDS: POTASSIUM CHLORIDE TABS 10 MEQ TABLET.ER (FP) PO SCH (09:20)
[2019-02-01] MEDS ORDERED: FUROSEMIDE 40 MG TABLET (FP) PO SCH (10:00)
[2019-02-01 10:02] LABS: ANION GAP 6 MMOL/L (8-16); BLOOD UREA NITROGEN 18 mg/dL (7-18); CALCIUM 9.5 mg/dL (8.5-10.1); CHLORIDE 98 mmol/L (98-107); CO2 36 mmol/L (21-32); GLUCOSE,RANDOM 133 mg/dL (74-106); POTASSIUM 4.7 mmol/L (3.5-5.1); SODIUM 140 mmol/L (136-145)
[2019-02-01 10:06] LABS: SGOT/AST 5 U/L (15-37)
[2019-02-01 10:11] LABS: MAGNESIUM 2.1 mg/dL (1.8-2.4)
--- NOTE | 2019-02-01 11:28 | PN ---
Progress Note, Physician History of Present Illness: PULMONARY ALERT,STILL CONGESTED ON NASAL O2 SAT 95% - Current Medication List Current Medications: Active Medications Albuterol Sulfate (Ventolin 0.083% Nebulizer Soln -) 1 amp NEB Q4H PRN PRN Reason: SHORT OF BREATH/WHEEZING Last Admin: 02/01/19 05:30 Dose: 1 amp Albuterol/Ipratropium (Duoneb -) 1 amp NEB RQID [facility] Last Admin: 02/01/19 08:00 Dose: 1 amp Atorvastatin Calcium (Lipitor -) 80 mg PO HS [facility] Last Admin: 01/31/19 22:45 Dose: 80 mg Azithromycin (Zithromax -) 500 mg PO DAILY [facility] Last Admin: 02/01/19 09:18 Dose: 500 mg Enoxaparin Sodium (Lovenox -) 40 mg SQ DAILY [facility] Last Admin: 02/01/19 09:20 Dose: 40 mg Ferrous Sulfate (Feosol -) 325 mg PO DAILY [facility] Last Admin: 02/01/19 09:18 Dose: 325 mg Furosemide (Lasix -) 40 mg PO DAILY [facility] Last Admin: 02/01/19 09:19 Dose: 40 mg Guaifenesin (Robitussin -) 10 ml PO Q4H PRN PRN Reason: COUGH Last Admin: 02/01/19 09:19 Dose: 10 ml Ceftriaxone Sodium 1 gm/ (Dextrose) 50 mls @ 100 mls/hr IVPB DAILY [facility]; Protocol Last Admin: 02/01/19 09:19 Dose: 100 mls/hr Insulin Aspart (Novolog Vial Sliding Scale -) 0 vial SQ ACHS [facility]; Protocol Last Admin: 02/01/19 06:02 Dose: 2 units Lisinopril (Prinivil) 10 mg PO DAILY [facility] Last Admin: 02/01/19 09:19 Dose: 10 mg Methylprednisolone Sodium Succinate (Solu-Medrol -) 60 mg IVPUSH Q6H-IV [facility] Last Admin: 02/01/19 09:19 Dose: 60 mg Nicotine (Nicoderm Patch -) 21 mg TD HS [facility] Last Admin: 01/31/19 22:45 Dose: 21 mg Potassium Chloride (K-Dur -) 10 meq PO DAILY [facility] Last Admin: 02/01/19 09:20 Dose: 10 meq Ranitidine HCl (Zantac -) 300 mg PO DAILY [facility] Last Admin: 02/01/19 09:19 Dose: 300 mg - Objective Vital Signs: Vital Signs Temperature 98.4 F 02/01/19 10:00 Pulse Rate 87 02/01/19 10:00 Respiratory Rate 20 02/01/19 10:00 Blood Pressure 139/80 02/01/19 10:00 O2 Sat by Pulse Oximetry (%) 91 L 02/01/19 09:00 Constitutional: Yes: Well Nourished, Calm Eyes: Yes: WNL HENT: Yes: WNL Neck: Yes: WNL Cardiovascular: Yes: Regular Rate and Rhythm, S1, S2 Respiratory: Yes: Wheezes (DIFFUSE SHERRY WHEZES AND RHONCHI) Gastrointestinal: Yes: Normal Bowel Sounds, Soft Extremities: Yes: WNL Edema: No Labs: CBC, BMP 02/01/19 05:15 02/01/19 05:15 INR, PTT INR 1.05 (0.83-1.09) 01/30/19 17:15 Problem List - Problems (1) Acute on chronic respiratory failure with hypoxia and hypercapnia Code(s): J96.21 - ACUTE AND CHRONIC RESPIRATORY FAILURE WITH HYPOXIA; J96.22 - ACUTE AND CHRONIC RESPIRATORY FAILURE WITH HYPERCAPNIA (2) SOB (shortness of breath) Code(s): R06.02 - SHORTNESS OF BREATH (3) COPD exacerbation Code(s): J44.1 - CHRONIC OBSTRUCTIVE PULMONARY DISEASE W (ACUTE) EXACERBATION (4) HTN (hypertension) Code(s): I10 - ESSENTIAL (PRIMARY) HYPERTENSION (5) Tobacco abuse Code(s): Z72.0 - TOBACCO USE (6) Tobacco abuse counseling Code(s): Z71.6 - TOBACCO ABUSE COUNSELING Assessment/Plan IMP ACUTE ON CHRONIC HYPOXEMIC/HYPERCAPNEIC RESPIRATORY FAILURE ADVANCED COPD WITH ACUTE EXACERBATION HTN ? H/O CHF TOBACCO ABUSE LIKELY JORGE PLAN IV STEROIDS SAME DOSE INHALED BRONCHODILATORS SUPPLEMENTAL O2 NIPPV NEEDED LASIX PER CARDIOLOGY AMBULATORY O2 SAT PRIOR TO DISCHARGE DR VEE Problem List - Problems (1) Acute on chronic respiratory failure with hypoxia and hypercapnia Code(s): J96.21 - ACUTE AND CHRONIC RESPIRATORY FAILURE WITH HYPOXIA; J96.22 - ACUTE AND CHRONIC RESPIRATORY FAILURE WITH HYPERCAPNIA (2) SOB (shortness of breath) Code(s): R06.02 - SHORTNESS OF BREATH (3) COPD exacerbation Code(s): J44.1 - CHRONIC OBSTRUCTIVE PULMONARY DISEASE W (ACUTE) EXACERBATION (4) HTN (hypertension) Code(s): I10 - ESSENTIAL (PRIMARY) HYPERTENSION (5) Tobacco abuse Code(s): Z72.0 - TOBACCO USE (6) Tobacco abuse counseling Code(s): Z71.6 - TOBACCO ABUSE COUNSELING
[2019-02-01] MEDS: FUROSEMIDE 40 MG/4 ML INJECTABLE VIAL IVPUSH SCH (13:49)
--- NOTE | 2019-02-01 15:21 | PN ---
Progress Note, Physician Chief Complaint: Cardiology follow up Feels better Telem NSR History of Present Illness: 63 year old male with a long smoking history and COPD. He has been complaining of worsening SOB fir the past 2 weeks. He also has orthopnea. EKG NSR at 81 BPM with normal intervals, normal axis, and NSSTTW changes. Troponin negative BNP 296 Echocardiogram 02/01/19 Normal LV function EF 50 - 55% mild MR Mild TR - Current Medication List Current Medications: Active Medications Albuterol Sulfate (Ventolin 0.083% Nebulizer Soln -) 1 amp NEB Q4H PRN PRN Reason: SHORT OF BREATH/WHEEZING Last Admin: 02/01/19 05:30 Dose: 1 amp Albuterol/Ipratropium (Duoneb -) 1 amp NEB RQID [facility] Last Admin: 02/01/19 11:53 Dose: 1 amp Atorvastatin Calcium (Lipitor -) 80 mg PO HS [facility] Last Admin: 01/31/19 22:45 Dose: 80 mg Azithromycin (Zithromax -) 500 mg PO DAILY [facility] Last Admin: 02/01/19 09:18 Dose: 500 mg Enoxaparin Sodium (Lovenox -) 40 mg SQ DAILY [facility] Last Admin: 02/01/19 09:20 Dose: 40 mg Ferrous Sulfate (Feosol -) 325 mg PO DAILY [facility] Last Admin: 02/01/19 09:18 Dose: 325 mg Furosemide (Lasix Injection -) 40 mg IVPUSH BID@0600,1400 [facility] Last Admin: 02/01/19 13:49 Dose: 40 mg Guaifenesin (Robitussin -) 10 ml PO Q4H PRN PRN Reason: COUGH Last Admin: 02/01/19 09:19 Dose: 10 ml Ceftriaxone Sodium 1 gm/ (Dextrose) 50 mls @ 100 mls/hr IVPB DAILY [facility]; Protocol Last Admin: 02/01/19 09:19 Dose: 100 mls/hr Insulin Aspart (Novolog Vial Sliding Scale -) 0 vial SQ ACHS [facility]; Protocol Last Admin: 02/01/19 12:05 Dose: Not Given Lisinopril (Prinivil) 10 mg PO DAILY [facility] Last Admin: 02/01/19 09:19 Dose: 10 mg Methylprednisolone Sodium Succinate (Solu-Medrol -) 60 mg IVPUSH Q6H-IV [facility] Last Admin: 02/01/19 14:03 Dose: 60 mg Nicotine (Nicoderm Patch -) 21 mg TD HS [facility] Last Admin: 01/31/19 22:45 Dose: 21 mg Potassium Chloride (K-Dur -) 10 meq PO DAILY [facility] Last Admin: 02/01/19 09:20 Dose: 10 meq Ranitidine HCl (Zantac -) 300 mg PO DAILY [facility] Last Admin: 02/01/19 09:19 Dose: 300 mg - Objective Vital Signs: Vital Signs Temperature 97.9 F 02/01/19 13:15 Pulse Rate 88 02/01/19 13:15 Respiratory Rate 18 02/01/19 13:15 Blood Pressure 153/93 02/01/19 13:15 O2 Sat by Pulse Oximetry (%) 92 L 02/01/19 11:58 Constitutional: Yes: Well Nourished, No Distress Eyes: Yes: Conjunctiva Clear, EOM Intact HENT: Yes: Atraumatic, Normocephalic Neck: Yes: Trachea Midline Cardiovascular: Yes: Regular Rate and Rhythm, S1, S2. No: JVD Respiratory: Yes: Wheezes Gastrointestinal: Yes: Normal Bowel Sounds Edema: No Labs: CBC, BMP 02/01/19 05:15 02/01/19 05:15 INR, PTT INR 1.05 (0.83-1.09) 01/30/19 17:15 Problem List - Problems (1) Acute on chronic respiratory failure with hypoxia and hypercapnia Code(s): J96.21 - ACUTE AND CHRONIC RESPIRATORY FAILURE WITH HYPOXIA; J96.22 - ACUTE AND CHRONIC RESPIRATORY FAILURE WITH HYPERCAPNIA (2) CHF (congestive heart failure) Code(s): I50.9 - HEART FAILURE, UNSPECIFIED Assessment/Plan 63 year old male with a long smoking history and COPD. He has been complaining of worsening SOB fir the past 2 weeks. EKG NSR at 81 BPM with normal intervals, normal axis, and NSSTTW changes. Troponin negative BNP 296 Echocardiogram 02/01/19 Normal LV function EF 50 - 55% mild MR Mild TR COPD exacerbation Improved HFpEF Transition to lasix 40mg qd PO tomorrow
[2019-02-01] MEDS ORDERED: INSULIN SLIDING SCALE (NOVOLOG) 1 VIAL SQ ONE (20:52)
[2019-02-01] MEDS: NICOTINE 21 MG/24 HOURS TOPICAL PATCH TD SCH (20:59)
[2019-02-01] MEDS: ATORVASTATIN CA 80 MG TABLET (FP) PO SCH (21:00)
[2019-02-02] MEDS: methylPREDNISolone NA SUCC 40 MG/1 ML VIAL IVPUSH SCH ×3 (03:31→17:32)
[2019-02-02] MEDS: FUROSEMIDE 40 MG/4 ML INJECTABLE VIAL IVPUSH SCH (05:29)
[2019-02-02] MEDS: INSULIN SLIDING SCALE (NOVOLOG) 1 VIAL SQ SCH ×4 (06:07→21:16)
[2019-02-02] MEDS: guaiFENesin 200 MG/10 ML 10 ML UNIT-DOSE CUPS PO PRN ×4 (06:13→21:16)
[2019-02-02] MEDS: ALBUTEROL SO4 2.5/IPRATROPIUM 0.5 INH SOL 3 ML VIAL.NEB. NEB SCH ×3 (08:13→16:14)
[2019-02-02] MEDS ORDERED: cefTRIAXone SODIUM 1 GM VIAL ONE (09:05)
[2019-02-02] MEDS ORDERED: DEXTROSE 5%-WATER - 50 ML IVPB ONE (09:05)
[2019-02-02] MEDS: POTASSIUM CHLORIDE TABS 10 MEQ TABLET.ER (FP) PO SCH (09:23)
[2019-02-02] MEDS: AZITHROMYCIN 250 MG TABLET PO SCH (09:23)
[2019-02-02] MEDS: FERROUS SO4 325 MG TABLET (FP) PO SCH (09:24)
[2019-02-02] MEDS: RANITIDINE HCL 150 MG TABLET (FP) PO SCH (09:24)
[2019-02-02] MEDS: LISINOPRIL 10 MG TABLET (FP) PO SCH (09:25)
[2019-02-02] MEDS: ENOXAPARIN NA (PORCINE) 40 MG/0.4 ML DISP.SYRIN SQ SCH (09:25)
[2019-02-02] MEDS: CEFTRIAXONE 1 GM in DEXTROSE 5%-WATER - 50 ML IVPB SCH (09:25)
--- NOTE | 2019-02-02 11:34 | PN ---
Progress Note, Physician - Current Medication List Current Medications: Active Medications Albuterol Sulfate (Ventolin 0.083% Nebulizer Soln -) 1 amp NEB Q4H PRN PRN Reason: SHORT OF BREATH/WHEEZING Last Admin: 02/01/19 05:30 Dose: 1 amp Albuterol/Ipratropium (Duoneb -) 1 amp NEB RQID [facility] Last Admin: 02/02/19 08:13 Dose: 1 amp Atorvastatin Calcium (Lipitor -) 80 mg PO HS [facility] Last Admin: 02/01/19 21:00 Dose: 80 mg Azithromycin (Zithromax -) 500 mg PO DAILY [facility] Last Admin: 02/02/19 09:23 Dose: 500 mg Enoxaparin Sodium (Lovenox -) 40 mg SQ DAILY [facility] Last Admin: 02/02/19 09:25 Dose: 40 mg Ferrous Sulfate (Feosol -) 325 mg PO DAILY [facility] Last Admin: 02/02/19 09:24 Dose: 325 mg Furosemide (Lasix Injection -) 40 mg IVPUSH BID@0600,1400 [facility] Last Admin: 02/02/19 05:29 Dose: 40 mg Guaifenesin (Robitussin -) 10 ml PO Q4H PRN PRN Reason: COUGH Last Admin: 02/02/19 06:13 Dose: 10 ml Ceftriaxone Sodium 1 gm/ (Dextrose) 50 mls @ 100 mls/hr IVPB DAILY [facility]; Protocol Last Admin: 02/02/19 09:25 Dose: 100 mls/hr Insulin Aspart (Novolog Vial Sliding Scale -) 0 vial SQ ACHS [facility]; Protocol Last Admin: 02/02/19 06:07 Dose: Not Given Lisinopril (Prinivil) 10 mg PO DAILY [facility] Last Admin: 02/02/19 09:25 Dose: 10 mg Methylprednisolone Sodium Succinate (Solu-Medrol -) 60 mg IVPUSH Q6H-IV [facility] Last Admin: 02/02/19 09:21 Dose: 60 mg Nicotine (Nicoderm Patch -) 21 mg TD HS [facility] Last Admin: 02/01/19 20:59 Dose: 21 mg Potassium Chloride (K-Dur -) 10 meq PO DAILY [facility] Last Admin: 02/02/19 09:23 Dose: 10 meq Ranitidine HCl (Zantac -) 300 mg PO DAILY [facility] Last Admin: 02/02/19 09:24 Dose: 300 mg - Objective Vital Signs: Vital Signs Temperature 98 F 02/02/19 09:19 Pulse Rate 84 02/02/19 09:19 Respiratory Rate 18 02/02/19 09:19 Blood Pressure 139/76 02/02/19 09:19 O2 Sat by Pulse Oximetry (%) 93 L 02/02/19 09:34 Cardiovascular: Yes: S1, S2 Respiratory: Yes: On Nasal O2, Rhonchi, Wheezes Gastrointestinal: Yes: Normal Bowel Sounds, Soft Labs: CBC, BMP 02/01/19 05:15 02/01/19 05:15 INR, PTT INR 1.05 (0.83-1.09) 01/30/19 17:15 Problem List - Problems (1) CHF (congestive heart failure) Assessment/Plan: -IV LASIX-TO PO 40 QD -CARDIO ON BOARD -FOLLOW LABS -EF 55% Code(s): I50.9 - HEART FAILURE, UNSPECIFIED (2) COPD exacerbation Assessment/Plan: -IV STEROIDS TAPER Q 8 -ABX -NEBS -PULM ON BOARD -CT NOTED--PULM NODULE Code(s): J44.1 - CHRONIC OBSTRUCTIVE PULMONARY DISEASE W (ACUTE) EXACERBATION (3) HTN (hypertension) Assessment/Plan: CONTROLLED Code(s): I10 - ESSENTIAL (PRIMARY) HYPERTENSION
--- NOTE | 2019-02-02 12:42 | PN ---
Progress Note, Physician History of Present Illness: PULMONARY ALERT,LESS DYSPNEIC - Current Medication List Current Medications: Active Medications Albuterol Sulfate (Ventolin 0.083% Nebulizer Soln -) 1 amp NEB Q4H PRN PRN Reason: SHORT OF BREATH/WHEEZING Last Admin: 02/01/19 05:30 Dose: 1 amp Albuterol/Ipratropium (Duoneb -) 1 amp NEB RQID [facility] Last Admin: 02/02/19 11:56 Dose: 1 amp Atorvastatin Calcium (Lipitor -) 80 mg PO HS [facility] Last Admin: 02/01/19 21:00 Dose: 80 mg Azithromycin (Zithromax -) 500 mg PO DAILY [facility] Last Admin: 02/02/19 09:23 Dose: 500 mg Enoxaparin Sodium (Lovenox -) 40 mg SQ DAILY [facility] Last Admin: 02/02/19 09:25 Dose: 40 mg Ferrous Sulfate (Feosol -) 325 mg PO DAILY [facility] Last Admin: 02/02/19 09:24 Dose: 325 mg Furosemide (Lasix -) 40 mg PO DAILY [facility] Guaifenesin (Robitussin -) 10 ml PO Q4H PRN PRN Reason: COUGH Last Admin: 02/02/19 11:39 Dose: 10 ml Ceftriaxone Sodium 1 gm/ (Dextrose) 50 mls @ 100 mls/hr IVPB DAILY [facility]; Protocol Last Admin: 02/02/19 09:25 Dose: 100 mls/hr Insulin Aspart (Novolog Vial Sliding Scale -) 0 vial SQ ACHS [facility]; Protocol Last Admin: 02/02/19 11:41 Dose: Not Given Lisinopril (Prinivil) 10 mg PO DAILY [facility] Last Admin: 02/02/19 09:25 Dose: 10 mg Methylprednisolone Sodium Succinate (Solu-Medrol -) 60 mg IVPUSH Q8H-IV [facility] Nicotine (Nicoderm Patch -) 21 mg TD HS [facility] Last Admin: 02/01/19 20:59 Dose: 21 mg Potassium Chloride (K-Dur -) 10 meq PO DAILY [facility] Last Admin: 02/02/19 09:23 Dose: 10 meq Ranitidine HCl (Zantac -) 300 mg PO DAILY [facility] Last Admin: 02/02/19 09:24 Dose: 300 mg - Objective Vital Signs: Vital Signs Temperature 98 F 02/02/19 09:19 Pulse Rate 84 02/02/19 09:19 Respiratory Rate 18 02/02/19 09:19 Blood Pressure 139/76 02/02/19 09:19 O2 Sat by Pulse Oximetry (%) 96 02/02/19 11:56 Constitutional: Yes: Well Nourished, Calm Eyes: Yes: WNL HENT: Yes: WNL Neck: Yes: WNL Cardiovascular: Yes: Regular Rate and Rhythm, S1, S2 Respiratory: Yes: Rhonchi (DIFFUSE SHERRY WHHZES AND RHONCHI), Wheezes Gastrointestinal: Yes: Normal Bowel Sounds, Soft Extremities: Yes: WNL Edema: Yes Labs: CBC, BMP 02/01/19 05:15 Problem List - Problems (1) Acute on chronic respiratory failure with hypoxia and hypercapnia Code(s): J96.21 - ACUTE AND CHRONIC RESPIRATORY FAILURE WITH HYPOXIA; J96.22 - ACUTE AND CHRONIC RESPIRATORY FAILURE WITH HYPERCAPNIA (2) SOB (shortness of breath) Code(s): R06.02 - SHORTNESS OF BREATH (3) COPD exacerbation Code(s): J44.1 - CHRONIC OBSTRUCTIVE PULMONARY DISEASE W (ACUTE) EXACERBATION (4) HTN (hypertension) Code(s): I10 - ESSENTIAL (PRIMARY) HYPERTENSION (5) Tobacco abuse Code(s): Z72.0 - TOBACCO USE (6) Tobacco abuse counseling Code(s): Z71.6 - TOBACCO ABUSE COUNSELING Assessment/Plan IMP ACUTE ON CHRONIC HYPOXEMIC/HYPERCAPNEIC RESPIRATORY FAILURE ADVANCED COPD WITH ACUTE EXACERBATION SLOWLY IMPROVING HTN ? H/O CHF TOBACCO ABUSE LIKELY JORGE PLAN IV STEROIDS INHALED BRONCHODILATORS SUPPLEMENTAL O2 NIPPV NEEDED LASIX PER CARDIOLOGY AMBULATORY O2 SAT PRIOR TO DISCHARGE DR VEE Problem List - Problems (1) Acute on chronic respiratory failure with hypoxia and hypercapnia Code(s): J96.21 - ACUTE AND CHRONIC RESPIRATORY FAILURE WITH HYPOXIA; J96.22 - ACUTE AND CHRONIC RESPIRATORY FAILURE WITH HYPERCAPNIA (2) SOB (shortness of breath) Code(s): R06.02 - SHORTNESS OF BREATH (3) COPD exacerbation Code(s): J44.1 - CHRONIC OBSTRUCTIVE PULMONARY DISEASE W (ACUTE) EXACERBATION (4) HTN (hypertension) Code(s): I10 - ESSENTIAL (PRIMARY) HYPERTENSION (5) Tobacco abuse Code(s): Z72.0 - TOBACCO USE (6) Tobacco abuse counseling Code(s): Z71.6 - TOBACCO ABUSE COUNSELING
--- NOTE | 2019-02-02 15:35 | PN ---
Progress Note, Physician Chief Complaint: Cardiology follow up Feels better Telem NSR History of Present Illness: 63 year old male with a long smoking history and COPD. He has been complaining of worsening SOB fir the past 2 weeks. He also has orthopnea. EKG NSR at 81 BPM with normal intervals, normal axis, and NSSTTW changes. Troponin negative BNP 296 Echocardiogram 02/01/19 Normal LV function EF 50 - 55% mild MR Mild TR - Current Medication List Current Medications: Active Medications Albuterol Sulfate (Ventolin 0.083% Nebulizer Soln -) 1 amp NEB Q4H PRN PRN Reason: SHORT OF BREATH/WHEEZING Last Admin: 02/01/19 05:30 Dose: 1 amp Albuterol/Ipratropium (Duoneb -) 1 amp NEB RQID [facility] Last Admin: 02/02/19 11:56 Dose: 1 amp Atorvastatin Calcium (Lipitor -) 80 mg PO HS [facility] Last Admin: 02/01/19 21:00 Dose: 80 mg Azithromycin (Zithromax -) 500 mg PO DAILY [facility] Last Admin: 02/02/19 09:23 Dose: 500 mg Enoxaparin Sodium (Lovenox -) 40 mg SQ DAILY [facility] Last Admin: 02/02/19 09:25 Dose: 40 mg Ferrous Sulfate (Feosol -) 325 mg PO DAILY [facility] Last Admin: 02/02/19 09:24 Dose: 325 mg Furosemide (Lasix -) 40 mg PO DAILY [facility] Guaifenesin (Robitussin -) 10 ml PO Q4H PRN PRN Reason: COUGH Last Admin: 02/02/19 11:39 Dose: 10 ml Ceftriaxone Sodium 1 gm/ (Dextrose) 50 mls @ 100 mls/hr IVPB DAILY [facility]; Protocol Last Admin: 02/02/19 09:25 Dose: 100 mls/hr Insulin Aspart (Novolog Vial Sliding Scale -) 0 vial SQ ACHS [facility]; Protocol Last Admin: 02/02/19 11:41 Dose: Not Given Lisinopril (Prinivil) 10 mg PO DAILY [facility] Last Admin: 02/02/19 09:25 Dose: 10 mg Methylprednisolone Sodium Succinate (Solu-Medrol -) 60 mg IVPUSH Q8H-IV [facility] Nicotine (Nicoderm Patch -) 21 mg TD HS [facility] Last Admin: 02/01/19 20:59 Dose: 21 mg Potassium Chloride (K-Dur -) 10 meq PO DAILY [facility] Last Admin: 02/02/19 09:23 Dose: 10 meq Ranitidine HCl (Zantac -) 300 mg PO DAILY [facility] Last Admin: 02/02/19 09:24 Dose: 300 mg - Objective Vital Signs: Vital Signs Temperature 97.7 F 02/02/19 13:05 Pulse Rate 86 02/02/19 13:05 Respiratory Rate 18 02/02/19 13:05 Blood Pressure 146/83 02/02/19 13:05 O2 Sat by Pulse Oximetry (%) 96 02/02/19 11:56 Constitutional: Yes: Well Nourished, No Distress Eyes: Yes: Conjunctiva Clear, EOM Intact HENT: Yes: Atraumatic, Normocephalic Neck: Yes: Supple, Trachea Midline Cardiovascular: Yes: Regular Rate and Rhythm, S1, S2. No: JVD Respiratory: Yes: CTA Bilaterally Gastrointestinal: Yes: Normal Bowel Sounds Edema: No Labs: CBC, BMP 02/01/19 05:15 02/01/19 05:15 INR, PTT INR 1.05 (0.83-1.09) 01/30/19 17:15 Problem List - Problems (1) Acute on chronic respiratory failure with hypoxia and hypercapnia Code(s): J96.21 - ACUTE AND CHRONIC RESPIRATORY FAILURE WITH HYPOXIA; J96.22 - ACUTE AND CHRONIC RESPIRATORY FAILURE WITH HYPERCAPNIA (2) CHF (congestive heart failure) Code(s): I50.9 - HEART FAILURE, UNSPECIFIED Assessment/Plan 63 year old male with a long smoking history and COPD. He has been complaining of worsening SOB fir the past 2 weeks. EKG NSR at 81 BPM with normal intervals, normal axis, and NSSTTW changes. Troponin negative BNP 296 Echocardiogram 02/01/19 Normal LV function EF 50 - 55% mild MR Mild TR COPD exacerbation Improved HFpEF Lasix 40 PO FU PRN
[2019-02-02] MEDS ORDERED: INSULIN SLIDING SCALE (NOVOLOG) 1 VIAL SQ ONE (21:08)
[2019-02-02] MEDS: ATORVASTATIN CA 80 MG TABLET (FP) PO SCH (21:16)
[2019-02-02] MEDS: NICOTINE 21 MG/24 HOURS TOPICAL PATCH TD SCH (21:17)
[2019-02-03] MEDS: methylPREDNISolone NA SUCC 40 MG/1 ML VIAL IVPUSH SCH ×3 (01:00→17:14)
[2019-02-03] MEDS: INSULIN SLIDING SCALE (NOVOLOG) 1 VIAL SQ SCH ×4 (06:03→21:29)
[2019-02-03] MEDS: ALBUTEROL SO4 2.5/IPRATROPIUM 0.5 INH SOL 3 ML VIAL.NEB. NEB SCH ×4 (07:40→20:30)
[2019-02-03] MEDS: ALBUTEROL SO4 0.083% IH SOL 2.5 MG/3 ML VIAL.NEB. NEB PRN (08:53)
[2019-02-03] MEDS ORDERED: DEXTROSE 5%-WATER - 50 ML IVPB ONE (09:46)
[2019-02-03] MEDS ORDERED: cefTRIAXone SODIUM 1 GM VIAL ONE (09:46)
[2019-02-03] MEDS: POTASSIUM CHLORIDE TABS 10 MEQ TABLET.ER (FP) PO SCH (10:01)
[2019-02-03] MEDS: CEFTRIAXONE 1 GM in DEXTROSE 5%-WATER - 50 ML IVPB SCH (10:01)
[2019-02-03] MEDS: FUROSEMIDE 40 MG TABLET (FP) PO SCH (10:01)
[2019-02-03] MEDS: RANITIDINE HCL 150 MG TABLET (FP) PO SCH (10:01)
[2019-02-03] MEDS: AZITHROMYCIN 250 MG TABLET PO SCH (10:01)
[2019-02-03] MEDS: ENOXAPARIN NA (PORCINE) 40 MG/0.4 ML DISP.SYRIN SQ SCH (10:02)
[2019-02-03] MEDS: FERROUS SO4 325 MG TABLET (FP) PO SCH (10:04)
[2019-02-03] MEDS ORDERED: PT OWN MED DRAWER 7, Y5N ONE ×4 (11:25→20:06)
--- NOTE | 2019-02-03 11:49 | PN ---
Progress Note, Physician History of Present Illness: PULMONARY ALERT,FEELING BETTER,LESS DYSPNEIC,-CP,+ COUGH - Current Medication List Current Medications: Active Medications Albuterol Sulfate (Ventolin 0.083% Nebulizer Soln -) 1 amp NEB Q4H PRN PRN Reason: SHORT OF BREATH/WHEEZING Last Admin: 02/03/19 08:53 Dose: 1 amp Albuterol/Ipratropium (Duoneb -) 1 amp NEB RQID [facility] Last Admin: 02/03/19 11:00 Dose: 1 amp Atorvastatin Calcium (Lipitor -) 80 mg PO HS [facility] Last Admin: 02/02/19 21:16 Dose: 80 mg Azithromycin (Zithromax -) 500 mg PO DAILY [facility] Last Admin: 02/03/19 10:01 Dose: 500 mg Enoxaparin Sodium (Lovenox -) 40 mg SQ DAILY [facility] Last Admin: 02/03/19 10:02 Dose: 40 mg Ferrous Sulfate (Feosol -) 325 mg PO DAILY [facility] Last Admin: 02/03/19 10:04 Dose: 325 mg Furosemide (Lasix -) 40 mg PO DAILY [facility] Last Admin: 02/03/19 10:01 Dose: 40 mg Guaifenesin (Robitussin -) 10 ml PO Q4H PRN PRN Reason: COUGH Last Admin: 02/02/19 21:16 Dose: 10 ml Ceftriaxone Sodium 1 gm/ (Dextrose) 50 mls @ 100 mls/hr IVPB DAILY [facility]; Protocol Last Admin: 02/03/19 10:01 Dose: 100 mls/hr Insulin Aspart (Novolog Vial Sliding Scale -) 0 vial SQ ACHS [facility]; Protocol Last Admin: 02/03/19 06:03 Dose: Not Given Lisinopril (Prinivil) 10 mg PO DAILY [facility] Last Admin: 02/02/19 09:25 Dose: 10 mg Methylprednisolone Sodium Succinate (Solu-Medrol -) 60 mg IVPUSH Q8H-IV [facility] Last Admin: 02/03/19 10:02 Dose: 60 mg Nicotine (Nicoderm Patch -) 21 mg TD HS [facility] Last Admin: 02/02/19 21:17 Dose: 21 mg Potassium Chloride (K-Dur -) 10 meq PO DAILY [facility] Last Admin: 02/03/19 10:01 Dose: 10 meq Ranitidine HCl (Zantac -) 300 mg PO DAILY [facility] Last Admin: 02/03/19 10:01 Dose: 300 mg - Objective Vital Signs: Vital Signs Temperature 97.7 F 02/03/19 08:13 Pulse Rate 84 02/03/19 08:13 Respiratory Rate 20 02/03/19 08:13 Blood Pressure 137/87 02/03/19 08:13 O2 Sat by Pulse Oximetry (%) 93 L 02/03/19 08:13 Constitutional: Yes: Well Nourished, Calm Eyes: Yes: WNL HENT: Yes: WNL Neck: Yes: WNL Cardiovascular: Yes: Regular Rate and Rhythm, S1, S2 Respiratory: Yes: Rhonchi (LESS WHEEZES AND RHONCHHI BILATERALLY), Wheezes Gastrointestinal: Yes: Normal Bowel Sounds, Soft Extremities: Yes: WNL Edema: No Labs: CBC, BMP Problem List - Problems (1) Acute on chronic respiratory failure with hypoxia and hypercapnia Code(s): J96.21 - ACUTE AND CHRONIC RESPIRATORY FAILURE WITH HYPOXIA; J96.22 - ACUTE AND CHRONIC RESPIRATORY FAILURE WITH HYPERCAPNIA (2) SOB (shortness of breath) Code(s): R06.02 - SHORTNESS OF BREATH (3) COPD exacerbation Code(s): J44.1 - CHRONIC OBSTRUCTIVE PULMONARY DISEASE W (ACUTE) EXACERBATION (4) HTN (hypertension) Code(s): I10 - ESSENTIAL (PRIMARY) HYPERTENSION (5) Tobacco abuse Code(s): Z72.0 - TOBACCO USE (6) Tobacco abuse counseling Code(s): Z71.6 - TOBACCO ABUSE COUNSELING Assessment/Plan IMP ACUTE ON CHRONIC HYPOXEMIC/HYPERCAPNEIC RESPIRATORY FAILURE ADVANCED COPD WITH ACUTE EXACERBATION SLOWLY IMPROVING HTN ? H/O CHF TOBACCO ABUSE LIKELY JOGRE PLAN TAPER STEROIDS INHALED BRONCHODILATORS SUPPLEMENTAL O2 NIPPV NEEDED LASIX PER CARDIOLOGY AMBULATORY O2 SAT PRIOR TO DISCHARGE DR VEE Problem List - Problems (1) Acute on chronic respiratory failure with hypoxia and hypercapnia Code(s): J96.21 - ACUTE AND CHRONIC RESPIRATORY FAILURE WITH HYPOXIA; J96.22 - ACUTE AND CHRONIC RESPIRATORY FAILURE WITH HYPERCAPNIA (2) SOB (shortness of breath) Code(s): R06.02 - SHORTNESS OF BREATH (3) COPD exacerbation Code(s): J44.1 - CHRONIC OBSTRUCTIVE PULMONARY DISEASE W (ACUTE) EXACERBATION (4) HTN (hypertension) Code(s): I10 - ESSENTIAL (PRIMARY) HYPERTENSION (5) Tobacco abuse Code(s): Z72.0 - TOBACCO USE (6) Tobacco abuse counseling Code(s): Z71.6 - TOBACCO ABUSE COUNSELING
--- NOTE | 2019-02-03 11:49 | PN ---
Progress Note, Physician Chief Complaint: SOB COPD exacerbation History of Present Illness: Previous notes and events reviewed awake and alert NAD patient states have less SOB and dyspnea on exertion cough with yellow colored sputum - Current Medication List Current Medications: Active Medications Albuterol Sulfate (Ventolin 0.083% Nebulizer Soln -) 1 amp NEB Q4H PRN PRN Reason: SHORT OF BREATH/WHEEZING Last Admin: 02/03/19 08:53 Dose: 1 amp Albuterol/Ipratropium (Duoneb -) 1 amp NEB RQID [facility] Last Admin: 02/03/19 11:00 Dose: 1 amp Atorvastatin Calcium (Lipitor -) 80 mg PO HS [facility] Last Admin: 02/02/19 21:16 Dose: 80 mg Azithromycin (Zithromax -) 500 mg PO DAILY [facility] Last Admin: 02/03/19 10:01 Dose: 500 mg Enoxaparin Sodium (Lovenox -) 40 mg SQ DAILY [facility] Last Admin: 02/03/19 10:02 Dose: 40 mg Ferrous Sulfate (Feosol -) 325 mg PO DAILY [facility] Last Admin: 02/03/19 10:04 Dose: 325 mg Furosemide (Lasix -) 40 mg PO DAILY [facility] Last Admin: 02/03/19 10:01 Dose: 40 mg Guaifenesin (Robitussin -) 10 ml PO Q4H PRN PRN Reason: COUGH Last Admin: 02/02/19 21:16 Dose: 10 ml Ceftriaxone Sodium 1 gm/ (Dextrose) 50 mls @ 100 mls/hr IVPB DAILY [facility]; Protocol Last Admin: 02/03/19 10:01 Dose: 100 mls/hr Insulin Aspart (Novolog Vial Sliding Scale -) 0 vial SQ ACHS [facility]; Protocol Last Admin: 02/03/19 06:03 Dose: Not Given Lisinopril (Prinivil) 10 mg PO DAILY [facility] Last Admin: 02/02/19 09:25 Dose: 10 mg Methylprednisolone Sodium Succinate (Solu-Medrol -) 60 mg IVPUSH Q8H-IV [facility] Last Admin: 02/03/19 10:02 Dose: 60 mg Nicotine (Nicoderm Patch -) 21 mg TD HS [facility] Last Admin: 02/02/19 21:17 Dose: 21 mg Potassium Chloride (K-Dur -) 10 meq PO DAILY [facility] Last Admin: 02/03/19 10:01 Dose: 10 meq Ranitidine HCl (Zantac -) 300 mg PO DAILY [facility] Last Admin: 02/03/19 10:01 Dose: 300 mg - Objective Vital Signs: Vital Signs Temperature 97.7 F 02/03/19 08:13 Pulse Rate 84 02/03/19 08:13 Respiratory Rate 20 02/03/19 08:13 Blood Pressure 137/87 02/03/19 08:13 O2 Sat by Pulse Oximetry (%) 93 L 02/03/19 08:13 Constitutional: Yes: No Distress, Calm Eyes: Yes: Conjunctiva Clear HENT: Yes: Atraumatic Cardiovascular: Yes: Regular Rate and Rhythm Respiratory: Yes: On Nasal O2, Wheezes (B/L) Gastrointestinal: Yes: Normal Bowel Sounds, Soft Musculoskeletal: Yes: Muscle Weakness Extremities: Yes: WNL Edema: No Neurological: Yes: Alert, Oriented Psychiatric: Yes: Alert, Oriented Labs: CBC, BMP 02/01/19 05:15 02/01/19 05:15 INR, PTT INR 1.05 (0.83-1.09) 01/30/19 17:15 Problem List - Problems (1) Acute on chronic respiratory failure with hypoxia and hypercapnia Code(s): J96.21 - ACUTE AND CHRONIC RESPIRATORY FAILURE WITH HYPOXIA; J96.22 - ACUTE AND CHRONIC RESPIRATORY FAILURE WITH HYPERCAPNIA (2) COPD exacerbation Assessment/Plan: -pulmonary on board -O2 via NC for SOB -maintain SpO2 >90% -Bipap at night -continue with albuterol and duo neb tx PRN -ID on board -continue with ceftriaxone and azithromycin -IV methylprednisone -robitussin PRN for cough -pre and post oxygen needs to be done prior to discharge Code(s): J44.1 - CHRONIC OBSTRUCTIVE PULMONARY DISEASE W (ACUTE) EXACERBATION (3) HTN (hypertension) Assessment/Plan: -continue with lisinopril daily -low Na diet Code(s): I10 - ESSENTIAL (PRIMARY) HYPERTENSION (4) SOB (shortness of breath) Assessment/Plan: -pulmonary on board -albuterol and duo neb tx PRN for SOB -supplemental O2 via NC PRN for SOB -Bipap at night -keep SpO2 >90% Code(s): R06.02 - SHORTNESS OF BREATH (5) Tobacco abuse Assessment/Plan: -daily nicotine patch Code(s): Z72.0 - TOBACCO USE (6) CHF (congestive heart failure) Assessment/Plan: -cardiology on board -tele monitoring -lasix PO daily -1L fluid restriction Code(s): I50.9 - HEART FAILURE, UNSPECIFIED Assessment/Plan see problem list dvt ppx
[2019-02-03] MEDS: LISINOPRIL 10 MG TABLET (FP) PO SCH (12:08)
[2019-02-03] MEDS ORDERED: INSULIN (LEVEMIR) 100 UNITS/ML UNITS SQ ONE (17:59)
[2019-02-03] MEDS ORDERED: INSULIN SLIDING SCALE (NOVOLOG) 1 VIAL SQ ONE ×2 (18:00→21:11)
[2019-02-03] MEDS: ATORVASTATIN CA 80 MG TABLET (FP) PO SCH (21:28)
[2019-02-03] MEDS: guaiFENesin 200 MG/10 ML 10 ML UNIT-DOSE CUPS PO PRN (21:29)
[2019-02-03] MEDS: NICOTINE 21 MG/24 HOURS TOPICAL PATCH TD SCH (21:29)
[2019-02-04] MEDS: methylPREDNISolone NA SUCC 40 MG/1 ML VIAL IVPUSH SCH ×3 (02:02→21:59)
[2019-02-04] MEDS: INSULIN SLIDING SCALE (NOVOLOG) 1 VIAL SQ SCH ×4 (06:04→21:59)
[2019-02-04 07:01] LABS: HEMATOCRIT 43.2 % (35.4-49); HEMOGLOBIN 13.4 GM/dL (11.7-16.9); MCH 27.8 pg (25.7-33.7); MEAN CELL VOLUME 89.4 fl (80-96); MEAN PLT VOLUME 8.5 fl (7.5-11.1); PLATELET COUNT 316 K/MM3 (134-434); RBC 4.84 M/mm3 (4.00-5.60)
[2019-02-04] MEDS: ALBUTEROL SO4 2.5/IPRATROPIUM 0.5 INH SOL 3 ML VIAL.NEB. NEB SCH ×4 (07:33→19:33)
[2019-02-04 07:36] LABS: ALBUMIN 3.1 g/dl (3.4-5.0); ALK PHOS 75 U/L (45-117); ANION GAP 5 MMOL/L (8-16); BILIRUBIN,TOTAL 0.2 mg/dL (0.2-1); BLOOD UREA NITROGEN 20 mg/dL (7-18); CALCIUM 8.9 mg/dL (8.5-10.1); CHLORIDE 97 mmol/L (98-107); CO2 35 mmol/L (21-32); CREATININE 0.8 mg/dL (0.55-1.3); GLUCOSE,RANDOM 117 mg/dL (74-106); POTASSIUM 4.5 mmol/L (3.5-5.1); SGOT/AST 11 U/L (15-37); SGPT/ALT 27 U/L (13-61); SODIUM 136 mmol/L (136-145); TOT PROT 7.1 g/dl (6.4-8.2)
--- NOTE | 2019-02-04 09:46 | PN ---
Progress Note, Physician - Current Medication List Current Medications: Active Medications Albuterol Sulfate (Ventolin 0.083% Nebulizer Soln -) 1 amp NEB Q4H PRN PRN Reason: SHORT OF BREATH/WHEEZING Last Admin: 02/03/19 08:53 Dose: 1 amp Albuterol/Ipratropium (Duoneb -) 1 amp NEB RQID [facility] Last Admin: 02/04/19 07:33 Dose: 1 amp Atorvastatin Calcium (Lipitor -) 80 mg PO HS [facility] Last Admin: 02/03/19 21:28 Dose: 80 mg Azithromycin (Zithromax -) 500 mg PO DAILY [facility] Last Admin: 02/03/19 10:01 Dose: 500 mg Enoxaparin Sodium (Lovenox -) 40 mg SQ DAILY [facility] Last Admin: 02/03/19 10:02 Dose: 40 mg Ferrous Sulfate (Feosol -) 325 mg PO DAILY [facility] Last Admin: 02/03/19 10:04 Dose: 325 mg Furosemide (Lasix -) 40 mg PO DAILY [facility] Last Admin: 02/03/19 10:01 Dose: 40 mg Guaifenesin (Robitussin -) 10 ml PO Q4H PRN PRN Reason: COUGH Last Admin: 02/03/19 21:29 Dose: 10 ml Ceftriaxone Sodium 1 gm/ (Dextrose) 50 mls @ 100 mls/hr IVPB DAILY [facility]; Protocol Last Admin: 02/03/19 10:01 Dose: 100 mls/hr Insulin Aspart (Novolog Vial Sliding Scale -) 0 vial SQ ACHS [facility]; Protocol Last Admin: 02/04/19 06:04 Dose: Not Given Lisinopril (Prinivil) 10 mg PO DAILY [facility] Last Admin: 02/03/19 12:08 Dose: 10 mg Methylprednisolone Sodium Succinate (Solu-Medrol -) 60 mg IVPUSH Q8H-IV [facility] Last Admin: 02/04/19 02:02 Dose: 60 mg Nicotine (Nicoderm Patch -) 21 mg TD HS [facility] Last Admin: 02/03/19 21:29 Dose: 21 mg Potassium Chloride (K-Dur -) 10 meq PO DAILY [facility] Last Admin: 02/03/19 10:01 Dose: 10 meq Ranitidine HCl (Zantac -) 300 mg PO DAILY [facility] Last Admin: 02/03/19 10:01 Dose: 300 mg - Objective Vital Signs: Vital Signs Temperature 98.3 F 02/04/19 06:00 Pulse Rate 82 02/04/19 06:00 Respiratory Rate 20 02/04/19 06:00 Blood Pressure 157/98 02/04/19 06:00 O2 Sat by Pulse Oximetry (%) 97 02/04/19 07:32 Cardiovascular: Yes: S1, S2 Respiratory: Yes: On Nasal O2, Rhonchi. No: Wheezes Gastrointestinal: Yes: Normal Bowel Sounds, Soft Labs: CBC, BMP 02/04/19 06:30 02/04/19 06:30 INR, PTT INR 1.05 (0.83-1.09) 01/30/19 17:15 Problem List - Problems (1) CHF (congestive heart failure) Assessment/Plan: -IV LASIX-TO PO 40 QD -CARDIO ON BOARD -FOLLOW LABS -EF 55% Code(s): I50.9 - HEART FAILURE, UNSPECIFIED (2) COPD exacerbation Assessment/Plan: -IV STEROIDS TAPER Q 8--40 BID -ABX -NEBS -PULM ON BOARD -CT NOTED--PULM NODULE Code(s): J44.1 - CHRONIC OBSTRUCTIVE PULMONARY DISEASE W (ACUTE) EXACERBATION (3) HTN (hypertension) Assessment/Plan: CONTROLLED Code(s): I10 - ESSENTIAL (PRIMARY) HYPERTENSION
[2019-02-04] MEDS ORDERED: DEXTROSE 5%-WATER - 50 ML IVPB ONE (09:50)
[2019-02-04] MEDS ORDERED: cefTRIAXone SODIUM 1 GM VIAL ONE (09:50)
[2019-02-04] MEDS: guaiFENesin 200 MG/10 ML 10 ML UNIT-DOSE CUPS PO PRN (10:02)
[2019-02-04] MEDS: ENOXAPARIN NA (PORCINE) 40 MG/0.4 ML DISP.SYRIN SQ SCH (10:02)
[2019-02-04] MEDS: CEFTRIAXONE 1 GM in DEXTROSE 5%-WATER - 50 ML IVPB SCH (10:02)
[2019-02-04] MEDS: LISINOPRIL 10 MG TABLET (FP) PO SCH (10:03)
[2019-02-04] MEDS: FERROUS SO4 325 MG TABLET (FP) PO SCH (10:03)
[2019-02-04] MEDS: POTASSIUM CHLORIDE TABS 10 MEQ TABLET.ER (FP) PO SCH (10:03)
[2019-02-04] MEDS: FUROSEMIDE 40 MG TABLET (FP) PO SCH (10:03)
[2019-02-04] MEDS: RANITIDINE HCL 150 MG TABLET (FP) PO SCH (10:03)
[2019-02-04] MEDS: AZITHROMYCIN 250 MG TABLET PO SCH (10:03)
--- NOTE | 2019-02-04 13:09 | PN ---
Progress Note (short form) - Note Progress Note: PULMONARY States breathing is improved, close to baseline. Still some wheezing. Vital Signs Period Temp Pulse Resp BP Sys/Felix Pulse Ox Last 24 Hr 97.6 F-98.7 F 77-90 20-20 134-157/79-98 94-97 Gen: NAD at rest Heart: RRR Lung: scattered wheezes Abd: soft, nontender Ext: no edema CBC, BMP 02/04/19 06:30 02/04/19 06:30 Active Medications Albuterol Sulfate (Ventolin 0.083% Nebulizer Soln -) 1 amp NEB Q4H PRN PRN Reason: SHORT OF BREATH/WHEEZING Last Admin: 02/03/19 08:53 Dose: 1 amp Albuterol/Ipratropium (Duoneb -) 1 amp NEB RQID [facility] Last Admin: 02/04/19 11:06 Dose: 1 amp Atorvastatin Calcium (Lipitor -) 80 mg PO HS [facility] Last Admin: 02/03/19 21:28 Dose: 80 mg Azithromycin (Zithromax -) 500 mg PO DAILY [facility] Last Admin: 02/04/19 10:03 Dose: 500 mg Enoxaparin Sodium (Lovenox -) 40 mg SQ DAILY [facility] Last Admin: 02/04/19 10:02 Dose: 40 mg Ferrous Sulfate (Feosol -) 325 mg PO DAILY [facility] Last Admin: 02/04/19 10:03 Dose: 325 mg Furosemide (Lasix -) 40 mg PO DAILY [facility] Last Admin: 02/04/19 10:03 Dose: 40 mg Guaifenesin (Robitussin -) 10 ml PO Q4H PRN PRN Reason: COUGH Last Admin: 02/04/19 10:02 Dose: 10 ml Ceftriaxone Sodium 1 gm/ (Dextrose) 50 mls @ 100 mls/hr IVPB DAILY [facility]; Protocol Last Admin: 02/04/19 10:02 Dose: 100 mls/hr Insulin Aspart (Novolog Vial Sliding Scale -) 0 vial SQ ACHS [facility]; Protocol Last Admin: 02/04/19 11:52 Dose: Not Given Lisinopril (Prinivil) 10 mg PO DAILY [facility] Last Admin: 02/04/19 10:03 Dose: 10 mg Methylprednisolone Sodium Succinate (Solu-Medrol -) 40 mg IVPUSH BID [facility] Last Admin: 02/04/19 10:03 Dose: 40 mg Nicotine (Nicoderm Patch -) 21 mg TD HS [facility] Last Admin: 02/03/19 21:29 Dose: 21 mg Potassium Chloride (K-Dur -) 10 meq PO DAILY [facility] Last Admin: 02/04/19 10:03 Dose: 10 meq Ranitidine HCl (Zantac -) 300 mg PO DAILY [facility] Last Admin: 02/04/19 10:03 Dose: 300 mg A/P Acute on Chronic Hypoxic and Hypercapneic Respiratory Failure Acute COPD Exacerbation Morbid Obesity Likely JORGE Smoker - can change steroids to PO prednisone 40mg daily - inhaled bronchodilators - complete antibiotics - o2 to keep Spo2 >90% - smoking cessation - outpt PFTs, PSG - DVT prophylaxis - check ambulatory SpO2 on room air to assess for home O2
[2019-02-04] MEDS: NICOTINE 21 MG/24 HOURS TOPICAL PATCH TD SCH (21:59)
[2019-02-04] MEDS: ATORVASTATIN CA 80 MG TABLET (FP) PO SCH (21:59)
[2019-02-05] MEDS: INSULIN SLIDING SCALE (NOVOLOG) 1 VIAL SQ SCH ×4 (07:00→22:46)
[2019-02-05] MEDS: ALBUTEROL SO4 2.5/IPRATROPIUM 0.5 INH SOL 3 ML VIAL.NEB. NEB SCH ×4 (07:27→21:09)
--- NOTE | 2019-02-05 09:57 | PN ---
Progress Note, Physician - Current Medication List Current Medications: Active Medications Albuterol Sulfate (Ventolin 0.083% Nebulizer Soln -) 1 amp NEB Q4H PRN PRN Reason: SHORT OF BREATH/WHEEZING Last Admin: 02/03/19 08:53 Dose: 1 amp Albuterol/Ipratropium (Duoneb -) 1 amp NEB RQID [facility] Last Admin: 02/05/19 07:27 Dose: 1 amp Atorvastatin Calcium (Lipitor -) 80 mg PO HS [facility] Last Admin: 02/04/19 21:59 Dose: 80 mg Azithromycin (Zithromax -) 500 mg PO DAILY [facility] Last Admin: 02/04/19 10:03 Dose: 500 mg Enoxaparin Sodium (Lovenox -) 40 mg SQ DAILY [facility] Last Admin: 02/04/19 10:02 Dose: 40 mg Ferrous Sulfate (Feosol -) 325 mg PO DAILY [facility] Last Admin: 02/04/19 10:03 Dose: 325 mg Furosemide (Lasix -) 40 mg PO DAILY [facility] Last Admin: 02/04/19 10:03 Dose: 40 mg Guaifenesin (Robitussin -) 10 ml PO Q4H PRN PRN Reason: COUGH Last Admin: 02/04/19 10:02 Dose: 10 ml Ceftriaxone Sodium 1 gm/ (Dextrose) 50 mls @ 100 mls/hr IVPB DAILY [facility]; Protocol Last Admin: 02/04/19 10:02 Dose: 100 mls/hr Insulin Aspart (Novolog Vial Sliding Scale -) 0 vial SQ ACHS [facility]; Protocol Last Admin: 02/05/19 07:00 Dose: 2 units Lisinopril (Prinivil) 20 mg PO DAILY [facility] Nicotine (Nicoderm Patch -) 21 mg TD HS [facility] Last Admin: 02/04/19 21:59 Dose: 21 mg Potassium Chloride (K-Dur -) 10 meq PO DAILY [facility] Last Admin: 02/04/19 10:03 Dose: 10 meq Ranitidine HCl (Zantac -) 300 mg PO DAILY [facility] Last Admin: 02/04/19 10:03 Dose: 300 mg - Objective Vital Signs: Vital Signs Temperature 98.1 F 02/05/19 06:00 Pulse Rate 84 02/05/19 06:00 Respiratory Rate 18 02/05/19 06:00 Blood Pressure 147/90 02/05/19 06:00 O2 Sat by Pulse Oximetry (%) 98 02/05/19 07:27 Cardiovascular: Yes: S1, S2 Respiratory: Yes: Diminished, On Nasal O2 Gastrointestinal: Yes: Normal Bowel Sounds, Soft Labs: CBC, BMP 02/04/19 06:30 02/04/19 06:30 INR, PTT INR 1.05 (0.83-1.09) 01/30/19 17:15 Problem List - Problems (1) CHF (congestive heart failure) Assessment/Plan: -IV LASIX-TO PO 40 QD -CARDIO ON BOARD -FOLLOW LABS -EF 55% Code(s): I50.9 - HEART FAILURE, UNSPECIFIED (2) COPD exacerbation Assessment/Plan: -IV STEROIDS TAPER Q 8--40 BID -ABX -NEBS -PULM ON BOARD -CT NOTED--PULM NODULE -PRE AND POST Code(s): J44.1 - CHRONIC OBSTRUCTIVE PULMONARY DISEASE W (ACUTE) EXACERBATION (3) HTN (hypertension) Assessment/Plan: CONTROLLED Code(s): I10 - ESSENTIAL (PRIMARY) HYPERTENSION Assessment/Plan PHYSICAL THERAPY DC PLANNING
[2019-02-05] MEDS ORDERED: DEXTROSE 5%-WATER - 50 ML IVPB ONE (10:51)
[2019-02-05] MEDS ORDERED: cefTRIAXone SODIUM 1 GM VIAL ONE (10:51)
[2019-02-05] MEDS: POTASSIUM CHLORIDE TABS 10 MEQ TABLET.ER (FP) PO SCH (11:00)
[2019-02-05] MEDS: RANITIDINE HCL 150 MG TABLET (FP) PO SCH (11:00)
[2019-02-05] MEDS: FERROUS SO4 325 MG TABLET (FP) PO SCH (11:00)
[2019-02-05] MEDS: LISINOPRIL 20 MG TABLET (FP) PO SCH (11:00)
[2019-02-05] MEDS: AZITHROMYCIN 250 MG TABLET PO SCH (11:00)
[2019-02-05] MEDS: ENOXAPARIN NA (PORCINE) 40 MG/0.4 ML DISP.SYRIN SQ SCH (11:00)
[2019-02-05] MEDS: predniSONE 10 MG TABLET (UD) PO SCH ×2 (11:00→22:45)
[2019-02-05] MEDS: FUROSEMIDE 40 MG TABLET (FP) PO SCH (11:00)
[2019-02-05] MEDS: CEFTRIAXONE 1 GM in DEXTROSE 5%-WATER - 50 ML IVPB SCH (11:01)
--- NOTE | 2019-02-05 12:24 | PN ---
Progress Note, Physician History of Present Illness: PULMONARY ALERT,FEELING BETTER,BREATHING BACK TO BASELINE - Current Medication List Current Medications: Active Medications Albuterol Sulfate (Ventolin 0.083% Nebulizer Soln -) 1 amp NEB Q4H PRN PRN Reason: SHORT OF BREATH/WHEEZING Last Admin: 02/03/19 08:53 Dose: 1 amp Albuterol/Ipratropium (Duoneb -) 1 amp NEB RQID [facility] Last Admin: 02/05/19 11:14 Dose: 1 amp Atorvastatin Calcium (Lipitor -) 80 mg PO HS [facility] Last Admin: 02/04/19 21:59 Dose: 80 mg Enoxaparin Sodium (Lovenox -) 40 mg SQ DAILY [facility] Last Admin: 02/05/19 11:00 Dose: 40 mg Ferrous Sulfate (Feosol -) 325 mg PO DAILY [facility] Last Admin: 02/05/19 11:00 Dose: 325 mg Furosemide (Lasix -) 40 mg PO DAILY [facility] Last Admin: 02/05/19 11:00 Dose: 40 mg Guaifenesin (Robitussin -) 10 ml PO Q4H PRN PRN Reason: COUGH Last Admin: 02/04/19 10:02 Dose: 10 ml Ceftriaxone Sodium 1 gm/ (Dextrose) 50 mls @ 100 mls/hr IVPB DAILY [facility]; Protocol Last Admin: 02/05/19 11:01 Dose: 100 mls/hr Insulin Aspart (Novolog Vial Sliding Scale -) 0 vial SQ ACHS [facility]; Protocol Last Admin: 02/05/19 11:17 Dose: Not Given Lisinopril (Prinivil) 20 mg PO DAILY [facility] Last Admin: 02/05/19 11:00 Dose: 20 mg Nicotine (Nicoderm Patch -) 21 mg TD HS [facility] Last Admin: 02/04/19 21:59 Dose: 21 mg Potassium Chloride (K-Dur -) 10 meq PO DAILY [facility] Last Admin: 02/05/19 11:00 Dose: 10 meq Prednisone (Deltasone -) 30 mg PO BID [facility] Last Admin: 02/05/19 11:00 Dose: 30 mg Ranitidine HCl (Zantac -) 300 mg PO DAILY [facility] Last Admin: 02/05/19 11:00 Dose: 300 mg - Objective Vital Signs: Vital Signs Temperature 97.9 F 02/05/19 10:00 Pulse Rate 95 H 02/05/19 10:00 Respiratory Rate 18 02/05/19 10:00 Blood Pressure 159/87 02/05/19 10:00 O2 Sat by Pulse Oximetry (%) 98 02/05/19 07:27 Constitutional: Yes: Well Nourished, Calm Eyes: Yes: WNL HENT: Yes: WNL Neck: Yes: WNL Cardiovascular: Yes: Regular Rate and Rhythm, S1, S2 Respiratory: Yes: Wheezes (SCATTERED SHERRY WHEEZES) Gastrointestinal: Yes: Normal Bowel Sounds, Soft Extremities: Yes: WNL Edema: No Labs: CBC, BMP 02/04/19 06:30 Problem List - Problems (1) Acute on chronic respiratory failure with hypoxia and hypercapnia Code(s): J96.21 - ACUTE AND CHRONIC RESPIRATORY FAILURE WITH HYPOXIA; J96.22 - ACUTE AND CHRONIC RESPIRATORY FAILURE WITH HYPERCAPNIA (2) SOB (shortness of breath) Code(s): R06.02 - SHORTNESS OF BREATH (3) COPD exacerbation Code(s): J44.1 - CHRONIC OBSTRUCTIVE PULMONARY DISEASE W (ACUTE) EXACERBATION (4) HTN (hypertension) Code(s): I10 - ESSENTIAL (PRIMARY) HYPERTENSION (5) Tobacco abuse Code(s): Z72.0 - TOBACCO USE (6) Tobacco abuse counseling Code(s): Z71.6 - TOBACCO ABUSE COUNSELING Assessment/Plan IMP ACUTE ON CHRONIC HYPOXEMIC/HYPERCAPNEIC RESPIRATORY FAILURE ADVANCED COPD WITH ACUTE EXACERBATION IMPROVING HTN ? H/O CHF TOBACCO ABUSE LIKELY JORGE PLAN PREDNISONE INHALED BRONCHODILATORS SUPPLEMENTAL O2 NIPPV NEEDED LASIX PRN AMBULATORY O2 SAT PRIOR TO DISCHARGE DR VEE Problem List - Problems (1) Acute on chronic respiratory failure with hypoxia and hypercapnia Code(s): J96.21 - ACUTE AND CHRONIC RESPIRATORY FAILURE WITH HYPOXIA; J96.22 - ACUTE AND CHRONIC RESPIRATORY FAILURE WITH HYPERCAPNIA (2) SOB (shortness of breath) Code(s): R06.02 - SHORTNESS OF BREATH (3) COPD exacerbation Code(s): J44.1 - CHRONIC OBSTRUCTIVE PULMONARY DISEASE W (ACUTE) EXACERBATION (4) HTN (hypertension) Code(s): I10 - ESSENTIAL (PRIMARY) HYPERTENSION (5) Tobacco abuse Code(s): Z72.0 - TOBACCO USE (6) Tobacco abuse counseling Code(s): Z71.6 - TOBACCO ABUSE COUNSELING
--- NOTE | 2019-02-05 13:09 | CONSULT ---
Consult Consult Specialty:: PM&R Dr Hardin for Dr Trammell - History of Present Illness Chief Complaint: BOBO (improving) History of Present Illness: This is a 63 year old man with a medical history of CHF, COPD, active smoker, who presented to the eD 01/30/19 with worsening SOB x2 weeks. He was admitted for acute on chronic hypercapnic and hypoxemic respiratory failure due to acute COPD exacerbation as well as HFpEF. Cardiology and Pulm were both consulted. He has not been seen by PT. He feels is breathing now is much better but not quite back to baseline. - History Source History Provided By: Patient - Alcohol/Substance Use Hx Alcohol Use: No - Smoking History Smoking history: Current every day smoker Have you smoked in the past 12 months: No Aproximately how many cigarettes per day: 40 - Social History Usual Living Arrangement: Other (with girlfriend in apartment with 2 steps to enter) ADL: Independent Home Medications - Allergies Allergies/Adverse Reactions: Allergies Allergy/AdvReac Type Severity Reaction Status Date / Time No Known Allergies Allergy Verified 01/30/19 17:36 - Home Medications Home Medications: Ambulatory Orders Atorvastatin Ca [Lipitor] 80 mg PO HS 01/30/19 Ferrous Sulfate 325 mg PO DAILY 01/30/19 Furosemide [Lasix] 40 mg PO DAILY 01/30/19 Lisinopril 10 mg PO DAILY 01/30/19 Potassium Chloride 10 meq PO DAILY 01/30/19 Ranitidine [Zantac -] 300 mg PO ONCE 01/30/19 Albuterol 2.5/Ipratropium 0.5 [Duoneb -] 1 amp NEB PRN 01/31/19 Prednisone [Deltasone] 20 mg PO DAILY 01/31/19 Review of Systems Findings/Remarks: Denies fevers, chills, changes in vision/ hearing/ mood, CP, abdominal pain, nausea, vomiting, constipation, diarrhea, dysuria, muscle/ joint pain, numbness / paresthesias. Notes SOB which is much better although not quite at baseline Physical Exam Vital Signs: Vital Signs Temperature 97.9 F 02/05/19 10:00 Pulse Rate 95 H 02/05/19 10:00 Respiratory Rate 18 02/05/19 10:00 Blood Pressure 159/87 02/05/19 10:00 O2 Sat by Pulse Oximetry (%) 98 02/05/19 07:27 Musculoskeletal: Yes: Other (General: calm obese AAM first observed ambulating in hallway with wide- based gait with increased lanre and without AD, then examined sitting EOB, AAO x3, NAD N/M: B shoulder flexion to 140 degrees with full BLE ROM, 5/5 BUE/ BLE Extremities: no BLE pitting edema, no B calf tenderness) Labs: CBC, BMP 02/04/19 06:30 02/04/19 06:30 Imaging - Results Cat Scan: Report Reviewed (01/31/19 CT chest shows mild COPD changes with centrilobular emphysema) Other: Report Reviewed (01/31/19 echo was limited but shows EF 50-55% with mild MR and aortic sclerosis) Assessment/Plan Impression: 1) Deficits mobility/ ADLs 2) Deconditioning 3) Gait abnormality 4) COPD exacerbation 5) HFpEF with EF 50-55% and HTN 6) Obesity 7) Up to date flu shot/ pneumovax 8) Active smoker Recommendations: 1) PT for functional mobility, stair and endurance 2) Falls, safety precautions 3) Cardiopulmonary precautions 4) Breathing techniques, energy conservation, endurance 5) DVT ppx: on Lovenox 6) Denies constipation on current bowel regimen 7) Nutrition consult for obesity 8) Smoking cessation information at discharge 9) Discharge planning: he will likely be able to return home with services once medically stable. He reports his girlfriend will be able to assist him as needed. Thank you for this referral.
[2019-02-05] MEDS: ATORVASTATIN CA 80 MG TABLET (FP) PO SCH (22:45)
[2019-02-05] MEDS: NICOTINE 21 MG/24 HOURS TOPICAL PATCH TD SCH (22:46)
[2019-02-06] MEDS: INSULIN SLIDING SCALE (NOVOLOG) 1 VIAL SQ SCH ×4 (06:40→22:40)
[2019-02-06] MEDS: ALBUTEROL SO4 2.5/IPRATROPIUM 0.5 INH SOL 3 ML VIAL.NEB. NEB SCH ×4 (07:15→21:06)
[2019-02-06] MEDS ORDERED: cefTRIAXone SODIUM 1 GM VIAL ONE (10:35)
[2019-02-06] MEDS ORDERED: DEXTROSE 5%-WATER - 50 ML IVPB ONE (10:35)
[2019-02-06] MEDS: ENOXAPARIN NA (PORCINE) 40 MG/0.4 ML DISP.SYRIN SQ SCH (10:37)
[2019-02-06] MEDS: FUROSEMIDE 40 MG TABLET (FP) PO SCH (10:38)
[2019-02-06] MEDS: FERROUS SO4 325 MG TABLET (FP) PO SCH (10:38)
[2019-02-06] MEDS: CEFTRIAXONE 1 GM in DEXTROSE 5%-WATER - 50 ML IVPB SCH (10:38)
[2019-02-06] MEDS: LISINOPRIL 20 MG TABLET (FP) PO SCH (10:38)
[2019-02-06] MEDS: predniSONE 10 MG TABLET (UD) PO SCH ×2 (10:38→22:40)
[2019-02-06] MEDS: RANITIDINE HCL 150 MG TABLET (FP) PO SCH (10:38)
[2019-02-06] MEDS: POTASSIUM CHLORIDE TABS 10 MEQ TABLET.ER (FP) PO SCH (10:38)
[2019-02-06 12:35] VITALS: BMI 36.1
--- NOTE | 2019-02-06 13:09 | PN ---
Progress Note (short form) - Note Progress Note: PULMONARY States breathing is improved, at baseline. Vital Signs Period Temp Pulse Resp BP Sys/Felix Pulse Ox Last 24 Hr 97.8 F-98.1 F 80-101 19-20 136-153/82-98 90-98 Gen: NAD at rest Heart: RRR Lung: distant breath sounds, no wheezes Abd: soft, nontender Ext: no edema CBC, BMP 02/04/19 06:30 02/04/19 06:30 Active Medications Albuterol Sulfate (Ventolin 0.083% Nebulizer Soln -) 1 amp NEB Q4H PRN PRN Reason: SHORT OF BREATH/WHEEZING Last Admin: 02/03/19 08:53 Dose: 1 amp Albuterol/Ipratropium (Duoneb -) 1 amp NEB RQID [facility] Last Admin: 02/06/19 11:38 Dose: 1 amp Atorvastatin Calcium (Lipitor -) 80 mg PO HS [facility] Last Admin: 02/05/19 22:45 Dose: 80 mg Enoxaparin Sodium (Lovenox -) 40 mg SQ DAILY [facility] Last Admin: 02/06/19 10:37 Dose: 40 mg Ferrous Sulfate (Feosol -) 325 mg PO DAILY [facility] Last Admin: 02/06/19 10:38 Dose: 325 mg Furosemide (Lasix -) 40 mg PO DAILY [facility] Last Admin: 02/06/19 10:38 Dose: 40 mg Guaifenesin (Robitussin -) 10 ml PO Q4H PRN PRN Reason: COUGH Last Admin: 02/04/19 10:02 Dose: 10 ml Ceftriaxone Sodium 1 gm/ (Dextrose) 50 mls @ 100 mls/hr IVPB DAILY [facility]; Protocol Last Admin: 02/06/19 10:38 Dose: 100 mls/hr Insulin Aspart (Novolog Vial Sliding Scale -) 0 vial SQ ACHS [facility]; Protocol Last Admin: 02/06/19 11:05 Dose: 2 units Lisinopril (Prinivil) 20 mg PO DAILY [facility] Last Admin: 02/06/19 10:38 Dose: 20 mg Nicotine (Nicoderm Patch -) 21 mg TD HS [facility] Last Admin: 02/05/19 22:46 Dose: 21 mg Potassium Chloride (K-Dur -) 10 meq PO DAILY [facility] Last Admin: 02/06/19 10:38 Dose: 10 meq Prednisone (Deltasone -) 30 mg PO BID [facility] Last Admin: 02/06/19 10:38 Dose: 30 mg Ranitidine HCl (Zantac -) 300 mg PO DAILY [facility] Last Admin: 02/06/19 10:38 Dose: 300 mg A/P Acute on Chronic Hypoxic and Hypercapneic Respiratory Failure Acute COPD Exacerbation Morbid Obesity Likely JORGE Smoker - prednisone taper - inhaled bronchodilators - complete antibiotics - o2 to keep Spo2 >90% - smoking cessation - outpt PFTs, PSG - DVT prophylaxis - will need home O2 - d/c planning
--- NOTE | 2019-02-06 13:52 | DS ---
Physical Examination Vital Signs: Vital Signs Temperature 97.8 F 02/06/19 10:00 Pulse Rate 95 H 02/06/19 10:00 Respiratory Rate 19 02/06/19 10:00 Blood Pressure 142/98 02/06/19 10:00 O2 Sat by Pulse Oximetry (%) 98 02/06/19 09:00 Constitutional: Yes: Calm Cardiovascular: Yes: Regular Rate and Rhythm, S1, S2 Respiratory: Yes: Diminished Gastrointestinal: Yes: Normal Bowel Sounds, Soft Labs: CBC, BMP 02/04/19 06:30 02/04/19 06:30 Discharge Summary Reason For Visit: SHORTNESS OF BREATH Current Active Problems Acute on chronic respiratory failure with hypoxia and hypercapnia (Acute) CHF (congestive heart failure) (Acute) COPD exacerbation (Acute) HTN (hypertension) (Acute) SOB (shortness of breath) (Acute) Tobacco abuse (Acute) Tobacco abuse counseling (Acute) Other Procedures: echo left ventricle systolic function normal 50-55%. chest ct mild copd and centrilobular emphysema. 4mm nodule in left lower lobe Hospital Course: CHIEF COMPLAINT: shortness of breath PCP: Anushaill HISTORY OF PRESENT ILLNESS: 63 man long time smoker c/o increasing shortness of breath for the past 2 weeks , worse with climbing stairs and other exertion. He denied significant cough or overt chest pain. He endorsed+ orthopnea, sleeping on 2 pillows at least. Pt recalls being diagnosed with chf in the past. ER course was notable for: (1) ekg (2) nebulizer tx (3) solumedrol copd exacerbation and hypoxic failure completed iv abx course now on po prednsione taper needs oxygen with exercise and ambulation Condition: Guarded - Instructions Diet, Activity, Other Instructions: repeat chest ct scan in 3 months to monitor size of pulm nodule Referrals: Gregory Hester MD [Staff Physician] - Disposition: [facility] - Home Medications Comprehensive Discharge Medication List: Ambulatory Orders Atorvastatin Ca [Lipitor] 80 mg PO HS 01/30/19 Ferrous Sulfate 325 mg PO DAILY 01/30/19 Furosemide [Lasix] 40 mg PO DAILY 01/30/19 Lisinopril 10 mg PO DAILY 01/30/19 Potassium Chloride 10 meq PO DAILY 01/30/19 Ranitidine [Zantac -] 300 mg PO ONCE 01/30/19 Albuterol 2.5/Ipratropium 0.5 [Duoneb -] 1 amp NEB PRN 01/31/19 Prednisone [Deltasone] 20 mg PO DAILY 01/31/19
[2019-02-06 16:06] LABS: ALBUMIN 3.2 g/dl (3.4-5.0); ALK PHOS 77 U/L (45-117); ANION GAP 5 MMOL/L (8-16); BILIRUBIN,TOTAL 0.1 mg/dL (0.2-1); BLOOD UREA NITROGEN 20 mg/dL (7-18); CALCIUM 8.7 mg/dL (8.5-10.1); CHLORIDE 96 mmol/L (98-107); CO2 36 mmol/L (21-32); CREATININE 0.9 mg/dL (0.55-1.3); GLUCOSE,RANDOM 90 mg/dL (74-106); POTASSIUM 4.7 mmol/L (3.5-5.1); SGOT/AST 13 U/L (15-37); SGPT/ALT 36 U/L (13-61); SODIUM 137 mmol/L (136-145)
[2019-02-06] MEDS: NICOTINE 21 MG/24 HOURS TOPICAL PATCH TD SCH (22:39)
[2019-02-06] MEDS: ATORVASTATIN CA 80 MG TABLET (FP) PO SCH (22:39)
[2019-02-07] MEDS: INSULIN SLIDING SCALE (NOVOLOG) 1 VIAL SQ SCH ×4 (06:15→21:08)
[2019-02-07] MEDS: ALBUTEROL SO4 2.5/IPRATROPIUM 0.5 INH SOL 3 ML VIAL.NEB. NEB SCH ×4 (07:56→20:28)
[2019-02-07] MEDS: FERROUS SO4 325 MG TABLET (FP) PO SCH (09:05)
[2019-02-07] MEDS: POTASSIUM CHLORIDE TABS 10 MEQ TABLET.ER (FP) PO SCH (09:05)
[2019-02-07] MEDS: RANITIDINE HCL 150 MG TABLET (FP) PO SCH (09:05)
[2019-02-07] MEDS: FUROSEMIDE 40 MG TABLET (FP) PO SCH (09:05)
[2019-02-07] MEDS: LISINOPRIL 20 MG TABLET (FP) PO SCH (09:05)
[2019-02-07] MEDS: predniSONE 10 MG TABLET (UD) PO SCH (09:05)
[2019-02-07] MEDS: ENOXAPARIN NA (PORCINE) 40 MG/0.4 ML DISP.SYRIN SQ SCH (09:06)
--- NOTE | 2019-02-07 13:03 | PN ---
Progress Note, Physician Chief Complaint: patient seen and examined - Current Medication List Current Medications: Active Medications Albuterol Sulfate (Ventolin 0.083% Nebulizer Soln -) 1 amp NEB Q4H PRN PRN Reason: SHORT OF BREATH/WHEEZING Last Admin: 02/03/19 08:53 Dose: 1 amp Albuterol/Ipratropium (Duoneb -) 1 amp NEB RQID [facility] Last Admin: 02/07/19 11:32 Dose: 1 amp Atorvastatin Calcium (Lipitor -) 80 mg PO HS [facility] Last Admin: 02/06/19 22:39 Dose: 80 mg Enoxaparin Sodium (Lovenox -) 40 mg SQ DAILY [facility] Last Admin: 02/07/19 09:06 Dose: 40 mg Ferrous Sulfate (Feosol -) 325 mg PO DAILY [facility] Last Admin: 02/07/19 09:05 Dose: 325 mg Furosemide (Lasix -) 40 mg PO DAILY [facility] Last Admin: 02/07/19 09:05 Dose: 40 mg Guaifenesin (Robitussin -) 10 ml PO Q4H PRN PRN Reason: COUGH Last Admin: 02/04/19 10:02 Dose: 10 ml Insulin Aspart (Novolog Vial Sliding Scale -) 0 vial SQ [facility]; Protocol Last Admin: 02/07/19 11:56 Dose: Not Given Lisinopril (Prinivil) 20 mg PO DAILY [facility] Last Admin: 02/07/19 09:05 Dose: 20 mg Nicotine (Nicoderm Patch -) 21 mg TD [facility] Last Admin: 02/06/19 22:39 Dose: 21 mg Potassium Chloride (K-Dur -) 10 meq PO DAILY [facility] Last Admin: 02/07/19 09:05 Dose: 10 meq Prednisone (Deltasone -) 30 mg PO BID [facility] Last Admin: 02/07/19 09:05 Dose: 30 mg Ranitidine HCl (Zantac -) 300 mg PO DAILY [facility] Last Admin: 02/07/19 09:05 Dose: 300 mg - Objective Vital Signs: Vital Signs Temperature 97.9 F 02/07/19 10:00 Pulse Rate 94 H 02/07/19 10:00 Respiratory Rate 20 02/07/19 10:00 Blood Pressure 132/85 02/07/19 10:00 O2 Sat by Pulse Oximetry (%) 99 02/07/19 11:30 Constitutional: Yes: Calm Cardiovascular: Yes: Regular Rate and Rhythm, S1, S2 Respiratory: Yes: Rhonchi, Wheezes (scaterred wheezes) Neurological: Yes: Alert, Oriented Labs: CBC, BMP 02/04/19 06:30 02/06/19 14:20 INR, PTT INR 1.05 (0.83-1.09) 01/30/19 17:15 Problem List - Problems (1) SOB (shortness of breath) Assessment/Plan: oxygen 3 litres will have him ambulate and see if he still require 6 litres on ambulation steroids 30mg po bid iv abx chest ct copd with centrilobular emphysema lovenox lasix echo report noted EF 55% left ventricle systolic function is normal Code(s): R06.02 - SHORTNESS OF BREATH (2) CHF (congestive heart failure) Assessment/Plan: lasix lisinopril Code(s): I50.9 - HEART FAILURE, UNSPECIFIED Assessment/Plan awaiting for pulm rehab placement leukocytosis secondary to steroids check oxygen when he ambulates
--- NOTE | 2019-02-07 13:32 | PN ---
Progress Note (short form) - Note Progress Note: Sitting in bed on 3 L NC O2. Overall breathing has improved. Some residual dry cough. Intake & Output 02/04/19 02/05/19 02/06/19 02/07/19 23:59 23:59 23:59 23:59 Intake Total 1190 1540 1160 360 Output Total 500 Balance 1190 1540 660 360 Weight 243 lb 2 oz 245 lb 245 lb 245 lb Last Vital Signs Temp Pulse Resp BP Pulse Ox 97.9 F 94 H 20 132/85 99 02/07/19 10:00 02/07/19 10:00 02/07/19 10:00 02/07/19 10:00 02/07/19 11:30 Active Medications Albuterol Sulfate (Ventolin 0.083% Nebulizer Soln -) 1 amp NEB Q4H PRN PRN Reason: SHORT OF BREATH/WHEEZING Last Admin: 02/03/19 08:53 Dose: 1 amp Albuterol/Ipratropium (Duoneb -) 1 amp NEB RQID [facility] Last Admin: 02/07/19 11:32 Dose: 1 amp Atorvastatin Calcium (Lipitor -) 80 mg PO HS [facility] Last Admin: 02/06/19 22:39 Dose: 80 mg Enoxaparin Sodium (Lovenox -) 40 mg SQ DAILY [facility] Last Admin: 02/07/19 09:06 Dose: 40 mg Ferrous Sulfate (Feosol -) 325 mg PO DAILY [facility] Last Admin: 02/07/19 09:05 Dose: 325 mg Furosemide (Lasix -) 40 mg PO DAILY [facility] Last Admin: 02/07/19 09:05 Dose: 40 mg Guaifenesin (Robitussin -) 10 ml PO Q4H PRN PRN Reason: COUGH Last Admin: 02/04/19 10:02 Dose: 10 ml Insulin Aspart (Novolog Vial Sliding Scale -) 0 vial SQ ACHS [facility]; Protocol Last Admin: 02/07/19 11:56 Dose: Not Given Lisinopril (Prinivil) 20 mg PO DAILY [facility] Last Admin: 02/07/19 09:05 Dose: 20 mg Nicotine (Nicoderm Patch -) 21 mg TD HS [facility] Last Admin: 02/06/19 22:39 Dose: 21 mg Potassium Chloride (K-Dur -) 10 meq PO DAILY [facility] Last Admin: 02/07/19 09:05 Dose: 10 meq Prednisone (Deltasone -) 20 mg PO BID [facility] Ranitidine HCl (Zantac -) 300 mg PO DAILY [facility] Last Admin: 02/07/19 09:05 Dose: 300 mg Gen: NAD at rest Heart: RRR Lung: distant breath sounds, no wheezes Abd: soft, nontender Ext: no edema Laboratory Results - last 24 hr 02/06/19 02/06/19 02/06/19 14:20 17:16 22:38 Sodium 137 Potassium 4.7 Chloride 96 L Carbon Dioxide 36 H Anion Gap 5 L BUN 20 H Creatinine 0.9 Creat Clearance w eGFR 84.69 POC Glucometer 152 132 Random Glucose 90 Calcium 8.7 Total Bilirubin 0.1 L AST 13 L ALT 36 Alkaline Phosphatase 77 Total Protein 7.0 Albumin 3.2 L 02/07/19 02/07/19 05:40 11:54 Sodium Potassium Chloride Carbon Dioxide Anion Gap BUN Creatinine Creat Clearance w eGFR POC Glucometer 136 107 Random Glucose Calcium Total Bilirubin AST ALT Alkaline Phosphatase Total Protein Albumin A/P Acute on Chronic Hypoxic and Hypercapneic Respiratory Failure Acute COPD Exacerbation Morbid Obesity Likely JORGE Smoker - prednisone taper - inhaled bronchodilators - complete antibiotics - O2 to keep Spo2 >90% - smoking cessation - outpt PFTs, PSG - DVT prophylaxis - will need home O2 - No Pulmonary contraindication for D/C planning Dr Andre
[2019-02-07] MEDS: NICOTINE 21 MG/24 HOURS TOPICAL PATCH TD SCH (21:07)
[2019-02-07] MEDS: predniSONE 20 MG TABLET (UD) PO SCH (21:08)
[2019-02-07] MEDS: ATORVASTATIN CA 80 MG TABLET (FP) PO SCH (21:08)
[2019-02-08] MEDS: INSULIN SLIDING SCALE (NOVOLOG) 1 VIAL SQ SCH ×2 (06:28→11:15)
[2019-02-08] MEDS: ALBUTEROL SO4 2.5/IPRATROPIUM 0.5 INH SOL 3 ML VIAL.NEB. NEB SCH ×2 (08:02→11:41)
[2019-02-08] MEDS: ENOXAPARIN NA (PORCINE) 40 MG/0.4 ML DISP.SYRIN SQ SCH (10:53)
[2019-02-08] MEDS: predniSONE 20 MG TABLET (UD) PO SCH (10:53)
[2019-02-08] MEDS: RANITIDINE HCL 150 MG TABLET (FP) PO SCH (10:53)
[2019-02-08] MEDS: LISINOPRIL 20 MG TABLET (FP) PO SCH (10:53)
[2019-02-08] MEDS: POTASSIUM CHLORIDE TABS 10 MEQ TABLET.ER (FP) PO SCH (10:54)
[2019-02-08] MEDS: FERROUS SO4 325 MG TABLET (FP) PO SCH (10:54)
[2019-02-08] MEDS: FUROSEMIDE 40 MG TABLET (FP) PO SCH (10:54)
[2019-02-08 11:12] VITALS: BP 124/86; PULSE 89; TEMP 97.9
--- NOTE | 2019-02-08 14:47 | PN ---
Progress Note (short form) - Note Progress Note: PULMONARY Denies shortness of breath, cough or wheezing. Vital Signs Period Temp Pulse Resp BP Sys/Felix Pulse Ox Last 24 Hr 97.4 F-97.9 F 74-89 18-21 117-142/64-92 97-100 Gen: NAD at rest Heart: RRR Lung: distant breath sounds, no wheezes Abd: soft, nontender Ext: no edema CBC, BMP 02/04/19 06:30 02/06/19 14:20 A/P Acute on Chronic Hypoxic and Hypercapneic Respiratory Failure Acute COPD Exacerbation Morbid Obesity Likely JORGE Smoker - prednisone taper - inhaled bronchodilators - complete antibiotics - o2 to keep Spo2 >90% - smoking cessation - outpt PFTs, PSG - DVT prophylaxis - home O2 - d/c planning
== END 2019-02-08 14:28 | disposition home or self-care (01) | DRG 190 ==
LOC: JER 16:52 → JERBED 19:34 → J4S 01-31 03:03
PROVIDERS: ADMIT Family Medicine; ATTEND Family Medicine
DX: J44.1 Chronic obstructive pulmonary disease with (acute) exacerbation (principal); J96.22 Acute and chronic respiratory failure with hypercapnia; J96.21 Acute and chronic respiratory failure with hypoxia; I50.33 Acute on chronic diastolic (congestive) heart failure; E87.2 Acidosis; I11.0 Hypertensive heart disease with heart failure; G47.33 Obstructive sleep apnea (adult) (pediatric); Z72.0 Tobacco use; E78.00 Pure hypercholesterolemia, unspecified; E66.01 Morbid (severe) obesity due to excess calories; Z68.35 Body mass index [BMI] 35.0-35.9, adult; R91.1 Solitary pulmonary nodule
CPT/HCPCS: 36415; 36600; 71045-TC-FY; 71250-TC; 80048; 80053; 80061; 82375; 82550; 82553; 82803; 82962; 83036; 83050; 83721; 83735; 83880; 84484; 85025; 85027; 85610; 93005; 93010; 93306-TC; 94640; 94660; 94761; 97116-GP; 97161-GP; 99282-25; J1644

== ENCOUNTER 2019-11-20 19:48 | Inpatient (IN) | payer OTHER ==
[2019-11-20] MEDS ORDERED: ALBUTEROL SO4 2.5/IPRATROPIUM 0.5 INH SOL 3 ML VIAL.NEB. NEB ONE ×4 (20:25→20:36)
[2019-11-20] MEDS ORDERED: methylPREDNISolone NA SUCC 125 MG/2 ML VIAL ONE (20:31)
[2019-11-20] MEDS ORDERED: methylPREDNISolone NA SUCC 125 MG/2 ML VIAL IVPB ONE (20:35)
--- NOTE | 2019-11-20 20:45 | PDOC ---
History of Present Illness - General Chief Complaint: Shortness of Breath Stated Complaint: CHEAT PAIN,DIFF. BREATHING Time Seen by Provider: 11/20/19 20:09 - History of Present Illness Initial Comments: 11/20/19 20:42 HPI: 64 y/o M with hx of CHF, COPD, HTN presenting with SOB. He reports cough for the past 2-3 days productive of clear thick productive sputum. SOB has been worsening over that time period. He has attempted home nebulzier treatments without improvement. He saw Dr Beckford earlier and was increased on his lasix dosage due to increasing pitting edema. He now reports BL lwoer chest pain that is worse on exertion. He states the last time he has had similar symptoms was 01/2019 when he was admitted. He denies fever, chills, VINES, LH, abd pain, n/v, diaphoresis, palpitations, sore throat, congestion PMHx: as noted above ROS: as noted SHx: +tobacco use; no alcohol use; no rec drugs Allergies: NKDA ROS: GENERAL/CONSTITUTIONAL: No fever or chills. No weakness. HEAD, EYES, EARS, NOSE AND THROAT: No change in vision. No ear pain or discharge. No sore throat. CARDIOVASCULAR: +chest pain, shortness of breath RESPIRATORY: +cough, wheezing; no hemoptysis. GASTROINTESTINAL: No nausea, vomiting, diarrhea or constipation. GENITOURINARY: No dysuria, frequency, or change in urination. MUSCULOSKELETAL: No joint or muscle swelling or pain. No neck or back pain. SKIN: No rash NEUROLOGIC: No headache, vertigo, loss of consciousness, or change in strength/ sensation. ENDOCRINE: No increased thirst. No abnormal weight change HEMATOLOGIC/LYMPHATIC: No anemia, easy bleeding, or history of blood clots. ALLERGIC/IMMUNOLOGIC: No hives or skin allergy. PE: GENERAL: Awake, alert, and fully oriented, severe respiratory distress HEAD: No signs of trauma, normocephalic, atraumatic EYES: EOMI, sclera anicteric, conjunctiva clear ENT: Auricles normal inspection, hearing grossly normal, nares patent, oropharynx clear without exudates. Moist mucosa NECK: Normal ROM, no lymphadenopathy LUNGS: significantly increased work of breathing with grunting and accessory muscle use, wheezes throughout all lung marti HEART: tachcyardia and regular rhythm, normal S1 and S2, no murmur, peripheral pulses 2+ and equal bilaterally. ABDOMEN: Soft, nondistended, nontender, normoactive bowel sounds. No guarding, no rebound. No masses. No CVAT MUSCULOSKELETAL: Normal inspection, FROM NEUROLOGICAL: Cranial nerves II through XII grossly intact. Normal speech, normal gait, no focal sensorimotor deficits SKIN: Warm, Dry, normal turgor, no rashes or lesions noted Past History - Past Medical History Allergies/Adverse Reactions: Allergies Allergy/AdvReac Type Severity Reaction Status Date / Time No Known Allergies Allergy Verified 11/20/19 20:14 Home Medications: Ambulatory Orders Atorvastatin Ca [Lipitor] 80 mg PO HS 01/30/19 Furosemide [Lasix] 40 mg PO DAILY 01/30/19 Ranitidine [Zantac -] 300 mg PO ONCE 01/30/19 Albuterol 2.5/Ipratropium 0.5 [Duoneb -] 1 amp NEB PRN 01/31/19 Lisinopril [Prinivil] 20 mg PO DAILY #30 tablet 02/08/19 Albuterol Sulfate Inhaler - [Ventolin Hfa Inhaler -] 1 inh PO Q4H PRN 11/20/19 Prednisone 20 mg PO DAILY 11/20/19 Asthma: Yes COPD: Yes CHF: Yes HTN: Yes Hypercholesterolemia: Yes - Surgical History Appendectomy: Yes - Psycho Social/Smoking Cessation Hx Smoking History: Current every day smoker Have you smoked in the past 12 months: No Number of Cigarettes Smoked Daily: 20 Information on smoking cessation initiated: No 'Breaking Loose' booklet given: 01/31/19 Hx Alcohol Use: No Drug/Substance Use Hx: No Substance Use Type: None Hx Substance Use Treatment: No *Physical Exam - Vital Signs Last Vital Signs Temp Pulse Resp BP Pulse Ox 97.6 F 104 H 28 H 155/95 92 L 11/20/19 19:55 11/20/19 19:55 11/20/19 19:55 11/20/19 19:55 11/20/19 19:55 ED Treatment Course - LABORATORY CBC & Chemistry Diagram: 11/20/19 20:40 11/20/19 20:15 Medical Decision Making - Medical Decision Making 11/20/19 20:52 64 y/o M with hx of CHF, COPD, HTN presenting with SOB and increased WOB associated with chest pain and cough. HR 100, O2 100% RA, AF. PE with increased WOB with accessory muscle use and wheezes throughout. DDx includes COPD exacerabation, CHF exacerbation, PNA. -cbc, cmp, lipase, vbg, blood cx, bnp, trop, ekg, cxr -albuterol x3, solumedrol, bipap, ofrimev 11/20/19 22:11 wbc 13.7 Cr 1.4 from 0.9 cxr with no acute pathology ekg with sinus tach, nl itnervals, biatrial enlargement, no kevin/d bedside us with no b-lines or pleural effusion patient improved on bipap and now speaking full sentences, less diaphoretic will admit to [facility]; pending [facility] 11/20/19 23:[address] Trujillo Discharge - Discharge Information Problems reviewed: Yes Clinical Impression/Diagnosis: SOB (shortness of breath), COPD exacerbation, Cough, Respiratory distress - Follow up/Referral - Patient Discharge Instructions - Post Discharge Activity
[2019-11-20] MEDS ORDERED: ACETAMINOPHEN 1000 MG/100 ML VIAL (NON FORMULARY) IVPB ONE (20:48)
[2019-11-20] MEDS ORDERED: ACETAMINOPHEN INJECTION 100 ML IVPB ONE (20:54)
[2019-11-20 20:55] LABS: VENOUS PC02 67.3 mmHg (38-52); VENOUS PH 7.3 (7.31-7.41)
[2019-11-20 21:09] LABS: BASO % 1.5 % (0-2.0); EOS % 0.5 % (0-4.5); HEMATOCRIT 37.5 % (35.4-49); HEMOGLOBIN 11.4 GM/dL (11.7-16.9); LYMPH % 15.8 % (8-40); MCH 27.7 pg (25.7-33.7); MCHC 30.4 g/dl (32.0-35.9); MEAN PLT VOLUME 8.5 fl (7.5-11.1); MONO % 7.2 % (3.8-10.2); PLATELET COUNT 277 K/MM3 (134-434); RBC 4.12 M/mm3 (4.00-5.60); RDW 16.2 % (11.9-15.9); WHITE BLOOD COUNT 13.7 K/mm3 (4.0-10.0)
--- NOTE | 2019-11-20 21:20 | PDOC ---
Documentation entered by Lissy Ty SCRIBE, acting as scribe for Ely Jaimes DO. Ely Jaimes DO: This documentation has been prepared by the andrey, Lissy Ty SCRIBE, under my direction and personally reviewed by me in its entirety. I confirm that the documentation accurately reflects all work, treatment, procedures, and medical decision making performed by me. Attending Attestation - Resident Resident Name: Saud Hu - ED Attending Attestation I have performed the following: I have examined & evaluated the patient, The case was reviewed & discussed with the resident, I agree w/resident's findings & plan, Exceptions are as noted - HPI HPI: 11/20/19 21:04 This is a 64 year old man with a significant PMH of CHF, COPD, active smoker, who presents to the ED with SOB. Pt reports coughing up clear productive sputum. Pt states he saw earlier and increased his lasix dosage due to his edma with no relief of symptoms prompting him to the ER. Pt was admitted with similar symptoms on 02/12/19. He denies any recent fevers, chills, headache or dizziness. He denies any recent nausea, vomiting, diarrhea or constipation.He denies any recent dysuria, frequency, urgency or hematuria. - Physicial Exam PE: 11/20/19 21:16 Gen: aaox3, resp distress, tachypnic, tachy, diaphoretic heart: +s1s2 tachy lungs: diffuse wheezing on exam, abd muscle breathing, conversational dyspnea, severe resp distress abd: soft, nt/nd +bs ext: 2+ pitting edema to b/l LE - Medical Decision Making 11/20/19 21:17 a/p: 64yo male with weeks of increasing sob despite increased lasix dose by pmd -pt in resp distress -concern for mixed copd/chf exacerbation -will start with nebs -pt immediately placed on bipap to assist with work of breathing -pt also given solumedrol -will send labs, cultures - coughing up white phlegm -will most likely also need lasix -will monitor and reassess 11/20/19 21:55 pt with copd exacerbation tevin pt on bipap and feeling better no longer diaphoretic, no longer resp distress feels much better, speaking in full sentences cxr clear azithro ordered tevin-suspect prerenal from increased diuretic dose bnp 58 11/20/19 21:56 11/20/19 21:56 microblog sent to [facility] for admission 11/20/19 23:44 case discussed with [facility] who accepts pt to service Discharge - Discharge Information Problems reviewed: Yes Clinical Impression/Diagnosis: SOB (shortness of breath), COPD exacerbation, Cough, Respiratory distress Condition: Guarded - Admission Yes - Follow up/Referral Referrals: Anibal Bond MD [Primary Care Provider] - - Patient Discharge Instructions - Post Discharge Activity Heart Score/ECG Review - ECG Intrepretation Comment:: 11/20/19 21:19 sinus tach at 107, nl axis, biatrial enlargement, no acute st/t wave findings
[2019-11-20] MEDS ORDERED: ALBUTEROL SO4 0.083% IH SOL 2.5 MG/3 ML VIAL.NEB. NEB ONE ×2 (21:27→21:40)
[2019-11-20] MEDS ORDERED: MAGNESIUM SULF 50% (8.12 MEQ/2 ML-1 GM VIAL) IVPB ONE (21:27)
[2019-11-20] MEDS ORDERED: AZITHROMYCIN IVPB 500 MG in DEXTROSE 5%-WATER - 250 ML IVPB ONE (21:27)
[2019-11-20 21:31] LABS: ALBUMIN 3.9 g/dl (3.4-5.0); BILIRUBIN,TOTAL 0.1 mg/dL (0.2-1); CALCIUM 9.3 mg/dL (8.5-10.1); CREATININE 1.6 mg/dL (0.55-1.3); MAGNESIUM 2.2 mg/dL (1.8-2.4); N-TERMINAL BNP 58.6 pg/ml (5-125); POTASSIUM 4.1 mmol/L (3.5-5.1); TOT PROT 7.7 g/dl (6.4-8.2)
[2019-11-20] MEDS ORDERED: MAGNESIUM SULF 50% (8.12 MEQ/2 ML-1 GM VIAL) ONE (21:41)
[2019-11-20] MEDS ORDERED: AZITHROMYCIN IVPB 500 MG/250 ML BAG IVPB ONE (21:41)
[2019-11-20 21:50] LABS: INR 0.93 (0.83-1.09)
[2019-11-20 21:53] LABS: ACTIVATED PTT 33.9 SECONDS (25.2-36.5)
[2019-11-20] MEDS ORDERED: SODIUM CHLORIDE 500 ML IV STA (21:55)
[2019-11-21] MEDS ORDERED: ALBUTEROL SO4 0.083% IH SOL 2.5 MG/3 ML VIAL.NEB. NEB PRN ×2 (01:02→12:25)
--- NOTE | 2019-11-21 01:16 | HP ---
CHIEF COMPLAINT: shortness of breath for 1 week PCP:Dr. Bond HISTORY OF PRESENT ILLNESS: 64 year old male with a significant past medical history of congestive heart failure(diastolic versus systolic unknown) , COPD, and active smoker who presents to the ED with SOB ongoing for a few weeks. Patient reported coughing up clear productive sputum. Pt stated he saw earlier and he increased his lasix dosage due to his edema with no relief of symptoms prompting him to the ER. Patient was admitted with similar symptoms on 02/12/19. He denies any recent fevers, chills, chest pain, headache or dizziness. ER course was notable for: (1)COPD Exacerbation- placed on BIPAP, received IV steroid and antibiotic (2)Acute Renal Insufficiency (3)Tachycardia Recent Travel: no PAST MEDICAL HISTORY: congestive heart failure COPD PAST SURGICAL HISTORY: none Social History: Smoking:yes Alcohol:no Drugs: no Allergies No Known Allergies Allergy (Verified 11/20/19 20:14) HOME MEDICATIONS: Home Medications Medication Instructions Recorded Atorvastatin Ca [Lipitor] 80 mg PO HS 01/30/19 Furosemide [Lasix] 40 mg PO DAILY 01/30/19 Ranitidine [Zantac -] 300 mg PO DAILY 01/30/19 Albuterol 2.5/Ipratropium 0.5 1 amp NEB PRN PRN 01/31/19 [Duoneb -] Lisinopril [Prinivil] 20 mg PO DAILY #30 tablet 02/08/19 Albuterol Sulfate Inhaler - 1 inh PO Q4H PRN 11/20/19 [Ventolin Hfa Inhaler -] Prednisone 20 mg PO DAILY 11/20/19 REVIEW OF SYSTEMS CONSTITUTIONAL: Absent: fever, chills, diaphoresis, generalized weakness, malaise, loss of appetite, weight change HEENT: Absent: rhinorrhea, nasal congestion, throat pain, throat swelling, difficulty swallowing, mouth swelling, ear pain, eye pain, visual changes CARDIOVASCULAR: Absent: chest pain, syncope, palpitations, irregular heart rate, lightheadedness , peripheral edema RESPIRATORY: Absent: cough, shortness of breath, dyspnea with exertion, orthopnea, wheezing, stridor, hemoptysis GASTROINTESTINAL: Absent: abdominal pain, abdominal distension, nausea, vomiting, diarrhea, constipation, melena, hematochezia GENITOURINARY: Absent: dysuria, frequency, urgency, hesitancy, hematuria, flank pain, genital pain MUSCULOSKELETAL: Absent: myalgia, arthralgia, joint swelling, back pain, neck pain SKIN: Absent: rash, itching, pallor HEMATOLOGIC/IMMUNOLOGIC: Absent: easy bleeding, easy bruising, lymphadenopathy, frequent infections ENDOCRINE: Absent: unexplained weight gain, unexplained weight loss, heat intolerance, cold intolerance NEUROLOGIC: Absent: headache, focal weakness or paresthesias, dizziness, unsteady gait, seizure, mental status changes, bladder or bowel incontinence PSYCHIATRIC: Absent: anxiety, depression, suicidal or homicidal ideation, hallucinations. PHYSICAL EXAMINATION Vital Signs - 24 hr 11/20/19 11/20/19 11/21/19 19:55 20:45 01:07 Temperature 97.6 F Pulse Rate 104 H Respiratory 28 H Rate Blood Pressure 155/95 O2 Sat by Pulse 92 L 100 98 Oximetry (%) GENERAL: awake alert and fully oriented no acute distress HEAD: normal EYES: pupils equal, round and reactive to light extraocular movements intact EARS, NOSE, THROAT: ears normal nares patent oropharynx clear without exudates moist mucous membranes NECK no JVD LUNGS: clear to auscultation bilaterally no accessory muscle BIPAP machine in use HEART: rate tachycardic normal S1 and S2 ABDOMEN: large and distended no guarding bowel sounds present MUSCULOSKELETAL: normal range of motion UPPER EXTREMITIES: 2+ pulses warm well-perfused no cyanosis LOWER EXTREMITIES: 2+ pulses warm on palpation 1+ edema present bilaterally NEUROLOGICAL: normal speech no facial grimace no facial droop moving upper and lower extremities PSYCHIATRIC: cooperative SKIN: warm dry normal turgor no rashes or lesions Laboratory Results - last 24 hr 11/20/19 11/20/19 11/20/19 20:15 20:15 20:15 WBC RBC Hgb Hct MCV MCH MCHC RDW Plt Count MPV Absolute Neuts (auto) Neutrophils % Lymphocytes % Monocytes % Eosinophils % Basophils % Nucleated RBC % PT with INR INR PTT (Actin FS) VBG pH 7.30 L POC VBG pCO2 67.3 H POC VBG pO2 109 H VBG HCO3 31.9 H VBG O2 Sat (Virginie) 97.2 H VBG Base Excess 4.1 H Sodium 138 Potassium 4.1 Chloride 99 Carbon Dioxide 33 H Anion Gap 7 L BUN 18.0 Creatinine 1.6 H Est GFR (CKD-EPI)AfAm 51.27 Est GFR (CKD-EPI)NonAf 44.24 Random Glucose 135 H Lactic Acid Calcium 9.3 Magnesium 2.2 Total Bilirubin 0.1 L AST 16 ALT 26 Alkaline Phosphatase 78 Creatine Kinase 454 H Creatine Kinase Index 1.2 CK-MB (CK-2) 5.8 H Troponin I < 0.02 B-Natriuretic Peptide 58.6 Total Protein 7.7 Albumin 3.9 11/20/19 11/20/19 11/20/19 20:15 20:40 20:40 WBC 13.7 H RBC 4.12 Hgb 11.4 L Hct 37.5 MCV 91.0 MCH 27.7 MCHC 30.4 L RDW 16.2 H Plt Count 277 MPV 8.5 Absolute Neuts (auto) 10.3 H Neutrophils % 75.0 Lymphocytes % 15.8 D Monocytes % 7.2 D Eosinophils % 0.5 D Basophils % 1.5 D Nucleated RBC % 0 PT with INR 11.00 INR 0.93 PTT (Actin FS) 33.9 VBG pH POC VBG pCO2 POC VBG pO2 VBG HCO3 VBG O2 Sat (Virginie) VBG Base Excess Sodium Potassium Chloride Carbon Dioxide Anion Gap BUN Creatinine Est GFR (CKD-EPI)AfAm Est GFR (CKD-EPI)NonAf Random Glucose Lactic Acid 2.0 Calcium Magnesium Total Bilirubin AST ALT Alkaline Phosphatase Creatine Kinase Creatine Kinase Index CK-MB (CK-2) Troponin I B-Natriuretic Peptide Total Protein Albumin ASSESSMENT/PLAN: Mr. Clark is a 64 year old male with a significant past medical history of congestive heart failure, COPD, and an active smoker who presented with SOB ongoing for a few weeks associated with coughing up clear productive sputum. #1 COPD Exacerbation +leukocytosis, lactic acid normal, BNP and troponin normal placed on BIPAP, received IV methylprenisone and a dose of IV azithromycin continue with IV solucortef 100mg q8hr, azithromycin 1gm daily, and albuterol treatment q6hr prn Pulmonary - Dr. Krause consulted #2 Acute Renal Insufficiency Baseline creatinine 0.9, now increased to 1.6, likely cardiorenal due to increased dose of oral lasix Hold oral lasix and lisinopril Nephrology consulted- Dr. Hill #3 Congestive Heart Failure Patient has a normal BNP, on exam he appears to have signs of fluid overload Lasix on hold in setting for worsening creatinine If creatinine improves in am he will benefit with a dose of IV lasix 40 mg once #4 Hyperlipidemia LFT's normal, continue with statin therapy Visit type - Emergency Visit Emergency Visit: Yes ED Registration Date: 11/20/19 Care time: The patient presented to the Emergency Department on the above date and was hospitalized for further evaluation of their emergent condition. - New Patient This patient is new to me today: Yes Date on this admission: 11/21/19 - Critical Care Critical Care patient: No
[2019-11-21] MEDS: HYDROCORTISONE SOD SUCCINATE 100 MG/2 ML VIAL IVPB SCH ×2 (02:22→10:15)
[2019-11-21 03:05] VITALS: BMI 37.5
[2019-11-21 07:00] LABS: HEMATOCRIT 36.1 % (35.4-49); HEMOGLOBIN 11.2 GM/dL (11.7-16.9); MCH 27.8 pg (25.7-33.7); MCHC 30.9 g/dl (32.0-35.9); MEAN CELL VOLUME 89.9 fl (80-96); PLATELET COUNT 271 K/MM3 (134-434); RBC 4.02 M/mm3 (4.00-5.60); RDW 15.9 % (11.9-15.9)
[2019-11-21 07:26] LABS: BLOOD UREA NITROGEN 14.7 mg/dL (7-18); CALCIUM 9.6 mg/dL (8.5-10.1); CREATININE 0.9 mg/dL (0.55-1.3); POTASSIUM 5.3 mmol/L (3.5-5.1)
[2019-11-21] MEDS ORDERED: FAMOTIDINE 40 MG TABLET PO SCH (10:00)
[2019-11-21] MEDS: AZITHROMYCIN IVPB 250 MG in DEXTROSE 5%-WATER - 250 ML IVPB SCH (10:15)
--- NOTE | 2019-11-21 12:22 | PN ---
Progress Note (short form) - Note Progress Note: IMP ACUTE ON CHRONIC HYPOXEMIC/HYPERCAPNEIC RESPIRATORY FAILURE ADVANCED COPD WITH ACUTE EXACERBATION HTN ? H/O CHF TOBACCO ABUSE LIKELY JORGE PLAN IV STEROIDS INHALED BRONCHODILATORS SUPPLEMENTAL O2 NIPPV NEEDED ABX CARDIOLOGY EVALUATION FORMAL SLEEP STUDIES OUTPATIENT CHEST CT LOW DOSE OUTPATIENT FOR LUNG CANCER SCREENING ABG DR VEE Problem List - Problems (1) Acute on chronic respiratory failure with hypoxia and hypercapnia Code(s): J96.21 - ACUTE AND CHRONIC RESPIRATORY FAILURE WITH HYPOXIA; J96.22 - ACUTE AND CHRONIC RESPIRATORY FAILURE WITH HYPERCAPNIA (2) SOB (shortness of breath) Code(s): R06.02 - SHORTNESS OF BREATH (3) COPD exacerbation Code(s): J44.1 - CHRONIC OBSTRUCTIVE PULMONARY DISEASE W (ACUTE) EXACERBATION (4) HTN (hypertension) Code(s): I10 - ESSENTIAL (PRIMARY) HYPERTENSION (5) Tobacco abuse Code(s): Z72.0 - TOBACCO USE (6) Tobacco abuse counseling Code(s): Z71.6 - TOBACCO ABUSE COUNSELING
--- NOTE | 2019-11-21 12:45 | PN ---
Progress Note, Physician Chief Complaint: AWAKE ALERT EVENTS AND NOTES REVIEWED SOB CONTINUES ON - Current Medication List Current Medications: Active Medications Albuterol Sulfate (Ventolin 0.083% Nebulizer Soln -) 1 amp NEB Q4H PRN PRN Reason: SHORT OF BREATH/WHEEZING Albuterol/Ipratropium (Duoneb -) 1 amp NEB RQID [facility] Atorvastatin Calcium (Lipitor -) 80 mg PO HS [facility]ATE Famotidine (Pepcid -) 40 mg PO DAILY [facility] Azithromycin 250 mg/ Dextrose 250 mls @ 250 mls/hr IVPB DAILY [facility] Last Admin: 11/21/19 10:15 Dose: 250 mls/hr Methylprednisolone Sodium Succinate (Solu-Medrol -) 40 mg IVPUSH Q6H-IV CUATE - Objective Vital Signs: Vital Signs Temperature 97.6 F 11/21/19 12:21 Pulse Rate 88 11/21/19 12:21 Respiratory Rate 20 11/21/19 12:21 Blood Pressure 141/83 11/21/19 12:21 O2 Sat by Pulse Oximetry (%) 99 11/21/19 09:00 Constitutional: Yes: Mild Distress Cardiovascular: Yes: Regular Rate and Rhythm Respiratory: Yes: Diminished, On Nasal O2 Gastrointestinal: Yes: Soft Genitourinary: Yes: WNL Musculoskeletal: Yes: WNL Edema: Yes Integumentary: Yes: WNL Wound/Incision: Yes: Clean/Dry Neurological: Yes: Pre-Existing Deficit Labs: CBC, BMP 11/21/19 06:20 11/21/19 06:20 INR, PTT INR 0.93 (0.83-1.09) 11/20/19 20:15 Problem List - Problems (1) COPD exacerbation Code(s): J44.1 - CHRONIC OBSTRUCTIVE PULMONARY DISEASE W (ACUTE) EXACERBATION (2) Cough Code(s): R05 - COUGH (3) Respiratory distress Code(s): R06.03 - ACUTE RESPIRATORY DISTRESS (4) SOB (shortness of breath) Code(s): R06.02 - SHORTNESS OF BREATH (5) Acute on chronic respiratory failure with hypoxia and hypercapnia Code(s): J96.21 - ACUTE AND CHRONIC RESPIRATORY FAILURE WITH HYPOXIA; J96.22 - ACUTE AND CHRONIC RESPIRATORY FAILURE WITH HYPERCAPNIA (6) HTN (hypertension) Code(s): I10 - ESSENTIAL (PRIMARY) HYPERTENSION (7) Tobacco abuse counseling Code(s): Z71.6 - TOBACCO ABUSE COUNSELING Assessment/Plan IV STEROIDS 02 SUPPORT GI PROPHYLAXIS PULMONARY EVAL RENAL F/U OOB TO CHAIR DVT PROPHYLAXIS
--- NOTE | 2019-11-21 14:04 | EKG ---
Test Reason : Blood Pressure : / mmHG Vent. Rate : 107 BPM Atrial Rate : 107 BPM P-R Int : 142 ms QRS Dur : 076 ms QT Int : 322 ms P-R-T Axes : 072 078 072 degrees QTc Int : 429 ms POOR DATA QUALITY, INTERPRETATION MAY BE ADVERSELY AFFECTED SINUS TACHYCARDIA BIATRIAL ENLARGEMENT ABNORMAL ECG Confirmed by DIRK FLORES MD ([id number]) on 11/21/2019 2:04:28 PM Referred By: Confirmed By:DIRK FLORES MD
[2019-11-21] MEDS: methylPREDNISolone NA SUCC 40 MG/1 ML VIAL IVPUSH SCH ×3 (14:09→21:57)
[2019-11-21 14:25] LABS: BLOOD UREA NITROGEN 16.9 mg/dL (7-18); CALCIUM 9.2 mg/dL (8.5-10.1); POTASSIUM 4.9 mmol/L (3.5-5.1)
--- NOTE | 2019-11-21 16:31 | CONSULT ---
Consult - text type - Consultation Consultation Note: Renal consult for KARMA This is a 64 year old gentleman with history of CHF, COPD who presented with shortness of breath and found to have elevated Cr. Pt seen and examined at the bedside. He offers no acute complaints. Denies any history of CKD. Making urine well. + NSAID use at home prior to admission. SOB has improved. Denies any leg swelling. No flank pain, chest pain, abd pain, N/V/D. No skin rash. PMhx: as above Allergies: NKDA Family Hx: NC Social Hx: No T/A/D ROS: as per HPI, all other pertinent ros negative Home Medications Medication Instructions Recorded Atorvastatin Ca [Lipitor] 80 mg PO HS 01/30/19 Furosemide [Lasix] 40 mg PO DAILY 01/30/19 Ranitidine [Zantac -] 300 mg PO DAILY 01/30/19 Albuterol 2.5/Ipratropium 0.5 1 amp NEB PRN PRN 01/31/19 [Duoneb -] Lisinopril [Prinivil] 20 mg PO DAILY #30 tablet 02/08/19 Albuterol Sulfate Inhaler - 1 inh PO Q4H PRN 11/20/19 [Ventolin Hfa Inhaler -] Prednisone 20 mg PO DAILY 11/20/19 Vital Signs Temperature 98.2 F 11/21/19 14:00 Pulse Rate 85 11/21/19 14:00 Respiratory Rate 20 11/21/19 14:00 Blood Pressure 150/90 11/21/19 14:00 O2 Sat by Pulse Oximetry (%) 99 11/21/19 09:00 Intake & Output 11/18/19 11/19/19 11/20/19 11/21/19 23:59 23:59 23:59 23:59 Intake Total 470 Balance 470 Weight 111.13 kg 115.212 kg NAD awake and alert neck supple RRR CTA soft NT/ND no LE edema, clubbing or cyanosis CBC, BMP 11/21/19 06:20 11/21/19 13:10 Current Medications Albuterol Sulfate (Ventolin 0.083% Nebulizer Soln -) 1 amp NEB Q4H PRN PRN Reason: SHORT OF BREATH/WHEEZING Albuterol/Ipratropium (Duoneb -) 1 amp NEB RQID CUATE Atorvastatin Calcium (Lipitor -) 80 mg PO HS CUATE Famotidine (Pepcid -) 40 mg PO DAILY CUATE Heparin Sodium (Porcine) (Heparin -) 5,000 unit SQ BID CUATE Azithromycin 250 mg/ Dextrose 250 mls @ 250 mls/hr IVPB DAILY [facility] Last Admin: 11/21/19 10:15 Dose: 250 mls/hr Methylprednisolone Sodium Succinate (Solu-Medrol -) 40 mg IVPUSH Q6H-IV CUATE Last Admin: 11/21/19 14:09 Dose: 40 mg 64 year old gentleman with history of CHF, COPD who presented with shortness of breath and found to have elevated Cr. 1. Acute renal insufficiency likely secondary to transient hemodynamic changes in setting of NSAID use 2. CHF 3. COPD 4. Anemia 5. Hyperlipidemia Renal function is now improved and stable no signs overt volume overlaod no overt electrolyte or acid base disturbance continue steroids per primary team (may cause BUN to rise) will follow up as needed please call if there are any questions or concerns Rogerio Hill DO
[2019-11-21 16:35] LABS: ARTERIAL BLD GAS O2 SATURATION 92.2 % (95-98); ARTERIAL BLOOD GAS BASE EXCESS 8.5 meq/l (-2-2); ARTERIAL BLOOD GAS PCO2 63.7 mmHg (35-45); ARTERIAL BLOOD GAS PO2 67.7 mmHg (80-100); ARTERIAL BLOOD GAS pH 7.37 (7.35-7.45)
[2019-11-21 16:38] LABS: ALLENS TEST POSITIVE
[2019-11-21] MEDS: ALBUTEROL SO4 2.5/IPRATROPIUM 0.5 INH SOL 3 ML VIAL.NEB. NEB SCH ×2 (16:42→20:45)
--- NOTE | 2019-11-21 18:56 | CONS ---
PULMONARY CONSULTATION DATE OF CONSULTATION: 11/21/2019 REFERRING PHYSICIAN: Caron Olsen MD HISTORY: Patient is a 64-year-old black male known to me from previous hospitalizations with office follow up, which I have not seen the patient in my office in almost a year. With a past medical history of congestive heart failure diastolic versus systolic, COPD, longstanding history of tobacco use currently still smoking, likely obstructive sleep apnea. Admitted to [facility] with the complaint of increasing shortness of breath, dyspnea on exertion, cough for the past 2-3 weeks. Patient denied any chest pain, nausea, vomiting, diaphoresis. Patient described increasing dosing of Lasix, but I have not spoken to him in greater than 1 year. Patient apparently has been on steroids since his previous hospitalization of January 2019. He also complains of chest pain. Denies any nausea, vomiting, diaphoresis. On admission, he was noted to be in moderate respiratory distress. He had a venous blood gas performed, which revealed evidence of acute hypercapnic, hypoxemic respiratory failure. No formal ABG was performed. Venous blood gas was unknown quantity of oxygen. He was admitted. He was started on inhaled bronchodilators as well as antibiotics. Patient denies any hemoptysis. He denies any history of occupational exposure to chemicals or fumes. PAST MEDICAL HISTORY: Again, includes advanced COPD, likely obstructive sleep apnea, congestive heart failure, tobacco abuse, morbid obesity. CURRENT MEDICATIONS: Include Solu-Cortef, albuterol, Pepcid, Lipitor. REVIEW OF SYSTEMS: Positive dyspnea, positive cough, positive chest pain. No fever, no chills, no hemoptysis, no abdominal pain, no lower extremity edema. PHYSICAL EXAMINATION: General: Patient is an obese male awake, mildly dyspneic in no acute distress. Vital Signs: He is afebrile. Blood pressure 138/81, respiratory rate 20, O2 saturation 97% on 40% O2. HEENT: Normocephalic, atraumatic. Neck: Supple. Heart: Regular S1, S2. Chest: Bilateral wheezes. Abdomen: Soft. Bowel sounds are positive. Extremities: Positive lower extremity edema. LABORATORIES: Venous blood gas 7.30, PCO2 of 67, PO2 of 109, bicarbonate 31, saturation 97. WBC 12, hemoglobin 11.2, hematocrit 36.1 with a platelet count of 271,000. Chemistries BUN 14, creatinine 0.9. Chest x-ray: No acute infiltrates or effusions. Patient's previous echocardiogram January 2019 revealed left ventricular systolic function within normal limits with an ejection fraction of 50%-55%. IMPRESSION: Acute on chronic hypoxic, hypercapnic respiratory failure secondary to: 1. Advanced chronic obstructive pulmonary disease with acute exacerbation. 2. History of hypertension. 3. Questionable history of congestive heart failure. 4. Tobacco abuse. 5. Likely obstructive sleep apnea. PLAN: IV steroids. Inhaled bronchodilators. Supplemental O2. NIPPV as needed. Lasix. Cardiology evaluation. Formal sleep study as an outpatient as well as chest CT low dose as an outpatient for Lung cancer screening. TRAN VEE M.D. [id number] MTDD
[2019-11-21] MEDS: ATORVASTATIN CA 80 MG TABLET (FP) PO SCH (21:57)
[2019-11-21] MEDS: HEPARIN NA (PORCINE) 5,000 UNITS/ML 1ML VIAL SQ SCH (21:57)
[2019-11-22] MEDS: methylPREDNISolone NA SUCC 40 MG/1 ML VIAL IVPUSH SCH ×4 (03:28→22:06)
[2019-11-22 07:05] LABS: HEMATOCRIT 35.9 % (35.4-49); HEMOGLOBIN 11.1 GM/dL (11.7-16.9); MCH 27.9 pg (25.7-33.7); MCHC 30.9 g/dl (32.0-35.9); MEAN CELL VOLUME 90.2 fl (80-96); MEAN PLT VOLUME 8.3 fl (7.5-11.1); PLATELET COUNT 287 K/MM3 (134-434); RBC 3.98 M/mm3 (4.00-5.60); RDW 15.7 % (11.9-15.9); WHITE BLOOD COUNT 16.3 K/mm3 (4.0-10.0)
[2019-11-22 07:28] LABS: ALBUMIN 3.6 g/dl (3.4-5.0); BILIRUBIN,TOTAL 0.1 mg/dL (0.2-1); BLOOD UREA NITROGEN 21.3 mg/dL (7-18); CALCIUM 9.4 mg/dL (8.5-10.1); CREATININE 0.9 mg/dL (0.55-1.3); TOT PROT 7.3 g/dl (6.4-8.2)
[2019-11-22] MEDS: ALBUTEROL SO4 2.5/IPRATROPIUM 0.5 INH SOL 3 ML VIAL.NEB. NEB SCH ×4 (08:19→20:20)
[2019-11-22] MEDS ORDERED: PT OWN MED DRAWER 7, Y5N ONE (08:56)
[2019-11-22] MEDS: FAMOTIDINE 20 MG TABLET PO SCH (09:04)
[2019-11-22] MEDS: HEPARIN NA (PORCINE) 5,000 UNITS/ML 1ML VIAL SQ SCH ×2 (09:04→22:01)
[2019-11-22] MEDS: AZITHROMYCIN IVPB 250 MG in DEXTROSE 5%-WATER - 250 ML IVPB SCH (09:13)
--- NOTE | 2019-11-22 10:30 | PN ---
Progress Note, Physician History of Present Illness: PULMONARY ALERT,FEELING BETTER,LESS DYSPNEIC - Current Medication List Current Medications: Active Medications Albuterol Sulfate (Ventolin 0.083% Nebulizer Soln -) 1 amp NEB Q4H PRN PRN Reason: SHORT OF BREATH/WHEEZING Albuterol/Ipratropium (Duoneb -) 1 amp NEB RQID [facility] Last Admin: 11/22/19 08:19 Dose: 1 amp Atorvastatin Calcium (Lipitor -) 80 mg PO HS [facility] Last Admin: 11/21/19 21:57 Dose: 80 mg Famotidine (Pepcid -) 40 mg PO DAILY [facility] Last Admin: 11/22/19 09:04 Dose: 40 mg Heparin Sodium (Porcine) (Heparin -) 5,000 unit SQ BID [facility] Last Admin: 11/22/19 09:04 Dose: 5,000 unit Azithromycin 250 mg/ Dextrose 250 mls @ 250 mls/hr IVPB DAILY [facility] Last Admin: 11/22/19 09:13 Dose: 250 mls/hr Methylprednisolone Sodium Succinate (Solu-Medrol -) 40 mg IVPUSH Q6H-IV [facility] Last Admin: 11/22/19 09:03 Dose: 40 mg - Objective Vital Signs: Vital Signs Temperature 98.2 F 11/22/19 10:00 Pulse Rate 82 11/22/19 10:00 Respiratory Rate 24 H 11/22/19 10:00 Blood Pressure 138/72 11/22/19 10:00 O2 Sat by Pulse Oximetry (%) 97 11/22/19 09:00 Constitutional: Yes: Calm, Obese Eyes: Yes: WNL HENT: Yes: WNL Neck: Yes: WNL Cardiovascular: Yes: Regular Rate and Rhythm, S1, S2 Respiratory: Yes: Wheezes (BILATERAL WHEEZES) Gastrointestinal: Yes: Normal Bowel Sounds, Soft Extremities: Yes: WNL Edema: No Labs: CBC, BMP 11/22/19 06:00 11/22/19 06:00 INR, PTT INR 0.93 (0.83-1.09) 11/20/19 20:15 Laboratory Tests 11/21/19 16:15 ABG pH 7.37 ABG pCO2 at Pt Temp 63.7 H ABG pO2 at Pt Temp 67.7 L ABG HCO3 35.5 H ABG O2 Sat (Measured) 92.2 L O2 Delivery Device Nasal Oxygen Flow Rate 2 Assessment/Plan IMP ACUTE ON CHRONIC HYPOXEMIC/HYPERCAPNEIC RESPIRATORY FAILURE ADVANCED COPD WITH ACUTE EXACERBATION HTN ? H/O CHF TOBACCO ABUSE LIKELY JORGE PLAN IV STEROIDS INHALED BRONCHODILATORS SUPPLEMENTAL O2 NIPPV NEEDED ABX FORMAL SLEEP STUDIES OUTPATIENT CHEST CT LOW DOSE OUTPATIENT FOR LUNG CANCER SCREENING DR VEE Problem List - Problems (1) Acute on chronic respiratory failure with hypoxia and hypercapnia Code(s): J96.21 - ACUTE AND CHRONIC RESPIRATORY FAILURE WITH HYPOXIA; J96.22 - ACUTE AND CHRONIC RESPIRATORY FAILURE WITH HYPERCAPNIA (2) SOB (shortness of breath) Code(s): R06.02 - SHORTNESS OF BREATH (3) COPD exacerbation Code(s): J44.1 - CHRONIC OBSTRUCTIVE PULMONARY DISEASE W (ACUTE) EXACERBATION (4) HTN (hypertension) Code(s): I10 - ESSENTIAL (PRIMARY) HYPERTENSION (5) Tobacco abuse Code(s): Z72.0 - TOBACCO USE (6) Tobacco abuse counseling Code(s): Z71.6 - TOBACCO ABUSE COUNSELING
--- NOTE | 2019-11-22 11:20 | PN ---
Progress Note, Physician Chief Complaint: AWAKE ALERT EATING A HIGH SODIUM DIET WITH JUNK FOOD IN THE ROOM I EXPLAINED THE IMPORTANCE OF BEING COMPLIANT WITH MEDS AND LIFESTYLE. STILL SOB WITH 02NC AND DIFFICULTY AMBULATING - Current Medication List Current Medications: Active Medications Albuterol Sulfate (Ventolin 0.083% Nebulizer Soln -) 1 amp NEB Q4H PRN PRN Reason: SHORT OF BREATH/WHEEZING Albuterol/Ipratropium (Duoneb -) 1 amp NEB RQID [facility] Last Admin: 11/22/19 08:19 Dose: 1 amp Atorvastatin Calcium (Lipitor -) 80 mg PO HS [facility] Last Admin: 11/21/19 21:57 Dose: 80 mg Famotidine (Pepcid -) 40 mg PO DAILY [facility] Last Admin: 11/22/19 09:04 Dose: 40 mg Heparin Sodium (Porcine) (Heparin -) 5,000 unit SQ BID [facility] Last Admin: 11/22/19 09:04 Dose: 5,000 unit Azithromycin 250 mg/ Dextrose 250 mls @ 250 mls/hr IVPB DAILY [facility] Last Admin: 11/22/19 09:13 Dose: 250 mls/hr Methylprednisolone Sodium Succinate (Solu-Medrol -) 40 mg IVPUSH Q6H-IV [facility] Last Admin: 11/22/19 09:03 Dose: 40 mg - Objective Vital Signs: Vital Signs Temperature 98.2 F 11/22/19 10:00 Pulse Rate 82 11/22/19 10:00 Respiratory Rate 24 H 11/22/19 10:00 Blood Pressure 138/72 11/22/19 10:00 O2 Sat by Pulse Oximetry (%) 97 11/22/19 09:00 Constitutional: Yes: Moderate Distress Cardiovascular: Yes: Regular Rate and Rhythm Respiratory: Yes: Diminished, On Nasal O2, Rhonchi, Wheezes Gastrointestinal: Yes: Abdomen, Obese Genitourinary: Yes: WNL Musculoskeletal: Yes: Muscle Weakness Edema: Yes Labs: CBC, BMP 11/22/19 06:00 11/22/19 06:00 INR, PTT INR 0.93 (0.83-1.09) 11/20/19 20:15 Problem List - Problems (1) COPD exacerbation Code(s): J44.1 - CHRONIC OBSTRUCTIVE PULMONARY DISEASE W (ACUTE) EXACERBATION (2) Cough Code(s): R05 - COUGH (3) Respiratory distress Code(s): R06.03 - ACUTE RESPIRATORY DISTRESS (4) SOB (shortness of breath) Code(s): R06.02 - SHORTNESS OF BREATH (5) Acute on chronic respiratory failure with hypoxia and hypercapnia Code(s): J96.21 - ACUTE AND CHRONIC RESPIRATORY FAILURE WITH HYPOXIA; J96.22 - ACUTE AND CHRONIC RESPIRATORY FAILURE WITH HYPERCAPNIA (6) HTN (hypertension) Code(s): I10 - ESSENTIAL (PRIMARY) HYPERTENSION (7) Tobacco abuse counseling Code(s): Z71.6 - TOBACCO ABUSE COUNSELING Assessment/Plan IV STEROIDS 02 SUPPORT GI PROPHYLAXIS PULMONARY EVAL APPRECIATED RENAL F/U OOB TO CHAIR DVT PROPHYLAXIS CHECK ECHO HEART FUNCTION AND EF% DIETARY CONSULT
--- NOTE | 2019-11-22 14:05 | CON.CARD ---
Consult Consult Specialty:: Cardiology Referred by:: Dr. Olsen Reason for Consultation:: Shortness of breath - History of Present Illness Chief Complaint: Shortness of breath History of Present Illness: 64 year old man, smoker with a PMHx of COPD and diastolic CHF admitted 11/20/19 with SOB ongoing for a few weeks. Patient reported coughing up clear productive sputum. Pt stated he saw Dr. Beckford earlier and he increased his lasix dosage due to his edema with no relief of symptoms prompting him to the ER. Patient was admitted with similar symptoms on 02/12/19. He denies any recent fevers, chills, chest pain, headache or dizziness. He was treated for COPD exacerbation- placed on BIPAP, received IV steroid and antibiotics. KARMA resolved. CXR 11/20/19 cardiomegaly. ECG showed sinus tachycardia at 107 bpm. Biatrial enlargement. BNP is normal. Echocardiogram 02/01/2019 TDS: Gross normal LV size and systolic function. LVEF 55 -55%. Normal RV. Normal LA and RA. Mild MR. Mild TR. - History Source History Provided By: Patient, Medical Record Limitations to Obtaining History: No Limitations - Alcohol/Substance Use Hx Alcohol Use: No - Smoking History Smoking history: Current every day smoker Have you smoked in the past 12 months: Yes Aproximately how many cigarettes per day: 20 - Social History Usual Living Arrangement: Other (with girlfriend in apartment with 2 steps to enter) ADL: Independent Home Medications - Allergies Allergies/Adverse Reactions: Allergies Allergy/AdvReac Type Severity Reaction Status Date / Time No Known Allergies Allergy Verified 11/20/19 20:14 - Home Medications Home Medications: Ambulatory Orders Atorvastatin Ca [Lipitor] 80 mg PO HS 01/30/19 Furosemide [Lasix] 40 mg PO DAILY 01/30/19 Ranitidine [Zantac -] 300 mg PO DAILY 01/30/19 Albuterol 2.5/Ipratropium 0.5 [Duoneb -] 1 amp NEB PRN PRN 01/31/19 Lisinopril [Prinivil] 20 mg PO DAILY #30 tablet 02/08/19 Albuterol Sulfate Inhaler - [Ventolin Hfa Inhaler -] 1 inh PO Q4H PRN 11/20/19 Prednisone 20 mg PO DAILY 11/20/19 Review of Systems - Review of Systems Constitutional: reports: No Symptoms Eyes: reports: No Symptoms HENT: reports: No Symptoms Neck: reports: No Symptoms Cardiovascular: reports: Edema, Shortness of Breath Respiratory: reports: Exercise Intolerance, Snoring, SOB, SOB on Exertion, Wheezing Gastrointestinal: reports: No Symptoms Genitourinary: reports: No Symptoms Breasts: reports: No Symptoms Reported Musculoskeletal: reports: No Symptoms Integumentary: reports: No Symptoms Neurological: reports: No Symptoms Endocrine: reports: No Symptoms Hematology/Lymphatic: reports: No Symptoms Psychiatric: reports: No Symptoms Vital Signs: Vital Signs Temperature 98.2 F 11/22/19 10:00 Pulse Rate 82 11/22/19 10:00 Respiratory Rate 24 H 11/22/19 10:00 Blood Pressure 138/72 11/22/19 10:00 O2 Sat by Pulse Oximetry (%) 97 11/22/19 09:00 General: Well developed. Obese. No acute distress. Head: Normocephalic. Atraumatic, Eyes: PERRLA, EOMI. Sclerae anicteric. Conjunctivae clear. Neck: Supple. No JVD. No bruits. Heart: Normal S1, S2: Regular rhythm and rate. No murmur. No gallop or rub. Lungs: Symmetrical poor air entry with prolonged expiration. No crackle. Scatterd wheezing or rhonchi. Abdomen: Soft. Bowel sound positive. Non tender. No masses. Extremities: Trace edema. No clubbing or cyanosis. PD 2+, equal bilaterally. Neuro: Intact, no focal findings. AAO X3 - Other Data Labs, Other Data: CBC, BMP 11/22/19 06:00 11/22/19 06:00 INR, PTT INR 0.93 (0.83-1.09) 11/20/19 20:15 Assessment/Plan 64 year old man, smoker with a PMHx of COPD and diastolic CHF admitted 11/20/19 with SOB ongoing for a few weeks. Patient reported coughing up clear productive sputum. Pt stated he saw Dr. Beckford earlier and he increased his lasix dosage due to his edema with no relief of symptoms prompting him to the ER. Patient was admitted with similar symptoms on 02/12/19. He denies any recent fevers, chills, chest pain, headache or dizziness. He was treated for COPD exacerbation- placed on BIPAP, received IV steroid and antibiotics. KARMA resolved. CXR 11/20/19 cardiomegaly. ECG showed sinus tachycardia at 107 bpm. Biatrial enlargement. BNP is normal. Echocardiogram 02/01/2019 TDS: Gross normal LV size and systolic function. LVEF 55 -55%. Normal RV. Normal LA and RA. Mild MR. Mild TR. Worsening Dyspnea predominantly due to COPD exacerbation. Diastolic CHF might play a small role. He has no physical signs of fluid overload. BNP is within normal range. -Continue oral Lasix. -Pulmonary care for COPD exacerbation. Please do not hesitate to call us for re-consult at any time if any further questions or additional issue arises regarding this patient.
[2019-11-22] MEDS: ATORVASTATIN CA 80 MG TABLET (FP) PO SCH (22:01)
[2019-11-23] MEDS: methylPREDNISolone NA SUCC 40 MG/1 ML VIAL IVPUSH SCH ×3 (03:38→17:24)
[2019-11-23] MEDS: ALBUTEROL SO4 2.5/IPRATROPIUM 0.5 INH SOL 3 ML VIAL.NEB. NEB SCH ×4 (08:12→20:30)
[2019-11-23] MEDS: FAMOTIDINE 20 MG TABLET PO SCH (09:17)
[2019-11-23] MEDS: AZITHROMYCIN IVPB 250 MG in DEXTROSE 5%-WATER - 250 ML IVPB SCH (09:17)
[2019-11-23] MEDS: HEPARIN NA (PORCINE) 5,000 UNITS/ML 1ML VIAL SQ SCH ×2 (09:17→21:43)
--- NOTE | 2019-11-23 10:31 | PN ---
Progress Note, Physician Chief Complaint: AWAKE ALERT FEELING BETTER - Current Medication List Current Medications: Active Medications Albuterol Sulfate (Ventolin 0.083% Nebulizer Soln -) 1 amp NEB Q4H PRN PRN Reason: SHORT OF BREATH/WHEEZING Albuterol/Ipratropium (Duoneb -) 1 amp NEB RQID [facility] Last Admin: 11/23/19 08:12 Dose: 1 amp Atorvastatin Calcium (Lipitor -) 80 mg PO HS [facility] Last Admin: 11/22/19 22:01 Dose: 80 mg Famotidine (Pepcid -) 40 mg PO DAILY [facility] Last Admin: 11/23/19 09:17 Dose: 40 mg Heparin Sodium (Porcine) (Heparin -) 5,000 unit SQ BID [facility] Last Admin: 11/23/19 09:17 Dose: 5,000 unit Azithromycin 250 mg/ Dextrose 250 mls @ 250 mls/hr IVPB DAILY [facility] Last Admin: 11/23/19 09:17 Dose: 250 mls/hr Methylprednisolone Sodium Succinate (Solu-Medrol -) 40 mg IVPUSH Q6H-IV [facility] Last Admin: 11/23/19 09:17 Dose: 40 mg - Objective Vital Signs: Vital Signs Temperature 98.1 F 11/23/19 09:16 Pulse Rate 85 11/23/19 09:16 Respiratory Rate 24 H 11/23/19 09:16 Blood Pressure 134/80 11/23/19 09:16 O2 Sat by Pulse Oximetry (%) 98 11/23/19 09:00 Constitutional: Yes: Mild Distress Cardiovascular: Yes: Regular Rate and Rhythm Respiratory: Yes: Diminished, Rhonchi Gastrointestinal: Yes: Abdomen, Obese Musculoskeletal: Yes: WNL Extremities: Yes: WNL Edema: No Labs: CBC, BMP 11/22/19 06:00 11/22/19 06:00 INR, PTT INR 0.93 (0.83-1.09) 11/20/19 20:15 Problem List - Problems (1) COPD exacerbation Code(s): J44.1 - CHRONIC OBSTRUCTIVE PULMONARY DISEASE W (ACUTE) EXACERBATION (2) Cough Code(s): R05 - COUGH (3) Respiratory distress Code(s): R06.03 - ACUTE RESPIRATORY DISTRESS (4) SOB (shortness of breath) Code(s): R06.02 - SHORTNESS OF BREATH (5) Acute on chronic respiratory failure with hypoxia and hypercapnia Code(s): J96.21 - ACUTE AND CHRONIC RESPIRATORY FAILURE WITH HYPOXIA; J96.22 - ACUTE AND CHRONIC RESPIRATORY FAILURE WITH HYPERCAPNIA (6) HTN (hypertension) Code(s): I10 - ESSENTIAL (PRIMARY) HYPERTENSION (7) Tobacco abuse counseling Code(s): Z71.6 - TOBACCO ABUSE COUNSELING Assessment/Plan IV STEROIDS 02 SUPPORT GI PROPHYLAXIS PULMONARY EVAL APPRECIATED RENAL F/U OOB TO CHAIR DVT PROPHYLAXIS CHECK ECHO HEART FUNCTION AND EF% DIETARY CONSULT
--- NOTE | 2019-11-23 10:59 | PN ---
Progress Note, Physician History of Present Illness: PULMONARY ALERT,FEELING BETTER,LESS CONGESTED,SOB IMPROVING - Current Medication List Current Medications: Active Medications Albuterol Sulfate (Ventolin 0.083% Nebulizer Soln -) 1 amp NEB Q4H PRN PRN Reason: SHORT OF BREATH/WHEEZING Albuterol/Ipratropium (Duoneb -) 1 amp NEB RQID [facility] Last Admin: 11/23/19 08:12 Dose: 1 amp Atorvastatin Calcium (Lipitor -) 80 mg PO HS [facility] Last Admin: 11/22/19 22:01 Dose: 80 mg Famotidine (Pepcid -) 40 mg PO DAILY [facility] Last Admin: 11/23/19 09:17 Dose: 40 mg Heparin Sodium (Porcine) (Heparin -) 5,000 unit SQ BID [facility] Last Admin: 11/23/19 09:17 Dose: 5,000 unit Azithromycin 250 mg/ Dextrose 250 mls @ 250 mls/hr IVPB DAILY [facility] Last Admin: 11/23/19 09:17 Dose: 250 mls/hr Methylprednisolone Sodium Succinate (Solu-Medrol -) 40 mg IVPUSH Q6H-IV [facility] Last Admin: 11/23/19 09:17 Dose: 40 mg - Objective Vital Signs: Vital Signs Temperature 98.1 F 11/23/19 09:16 Pulse Rate 85 11/23/19 09:16 Respiratory Rate 24 H 11/23/19 09:16 Blood Pressure 134/80 11/23/19 09:16 O2 Sat by Pulse Oximetry (%) 98 11/23/19 09:00 Constitutional: Yes: Calm, Obese Eyes: Yes: WNL HENT: Yes: WNL Neck: Yes: WNL Cardiovascular: Yes: Regular Rate and Rhythm, S1, S2 Respiratory: Yes: Wheezes (SCATTERED SHERRY WHEEZES) Gastrointestinal: Yes: Normal Bowel Sounds, Soft Extremities: Yes: WNL Edema: Yes Labs: CBC, BMP 11/22/19 06:00 11/22/19 06:00 INR, PTT INR 0.93 (0.83-1.09) 11/20/19 20:15 Assessment/Plan IMP ACUTE ON CHRONIC HYPOXEMIC/HYPERCAPNEIC RESPIRATORY FAILURE IMPROVING ADVANCED COPD WITH ACUTE EXACERBATION IMPROVING HTN ? H/O CHF TOBACCO ABUSE LIKELY JORGE PLAN STEROID TAPER INHALED BRONCHODILATORS SUPPLEMENTAL O2 NIPPV NEEDED ABX FORMAL SLEEP STUDIES OUTPATIENT CHEST CT DR VEE Problem List - Problems (1) Acute on chronic respiratory failure with hypoxia and hypercapnia Code(s): J96.21 - ACUTE AND CHRONIC RESPIRATORY FAILURE WITH HYPOXIA; J96.22 - ACUTE AND CHRONIC RESPIRATORY FAILURE WITH HYPERCAPNIA (2) SOB (shortness of breath) Code(s): R06.02 - SHORTNESS OF BREATH (3) COPD exacerbation Code(s): J44.1 - CHRONIC OBSTRUCTIVE PULMONARY DISEASE W (ACUTE) EXACERBATION (4) HTN (hypertension) Code(s): I10 - ESSENTIAL (PRIMARY) HYPERTENSION (5) Tobacco abuse Code(s): Z72.0 - TOBACCO USE (6) Tobacco abuse counseling Code(s): Z71.6 - TOBACCO ABUSE COUNSELING
[2019-11-23] MEDS ORDERED: BENZOCAINE/MENTH/CETYLPYRD CL 1 EACH LOZENGE MM PRN (11:46)
[2019-11-23] MEDS: ATORVASTATIN CA 80 MG TABLET (FP) PO SCH (21:43)
[2019-11-24] MEDS: methylPREDNISolone NA SUCC 40 MG/1 ML VIAL IVPUSH SCH ×3 (01:00→21:16)
[2019-11-24] MEDS: ALBUTEROL SO4 2.5/IPRATROPIUM 0.5 INH SOL 3 ML VIAL.NEB. NEB SCH ×4 (08:08→20:36)
--- NOTE | 2019-11-24 08:14 | PN ---
Progress Note, Physician Chief Complaint: SLOWLY IMPROVING ECHO TODAY - Current Medication List Current Medications: Active Medications Albuterol Sulfate (Ventolin 0.083% Nebulizer Soln -) 1 amp NEB Q4H PRN PRN Reason: SHORT OF BREATH/WHEEZING Albuterol/Ipratropium (Duoneb -) 1 amp NEB RQID [facility] Last Admin: 11/24/19 08:08 Dose: 1 amp Atorvastatin Calcium (Lipitor -) 80 mg PO HS [facility] Last Admin: 11/23/19 21:43 Dose: 80 mg Benzocaine/Menthol (Cepacol Lozenge -) 1 each MM Q4H PRN PRN Reason: SORE THROAT Famotidine (Pepcid -) 40 mg PO DAILY [facility] Last Admin: 11/23/19 09:17 Dose: 40 mg Heparin Sodium (Porcine) (Heparin -) 5,000 unit SQ BID [facility] Last Admin: 11/23/19 21:43 Dose: 5,000 unit Azithromycin 250 mg/ Dextrose 250 mls @ 250 mls/hr IVPB DAILY [facility] Last Admin: 11/23/19 09:17 Dose: 250 mls/hr Methylprednisolone Sodium Succinate (Solu-Medrol -) 40 mg IVPUSH Q8H-IV [facility] Last Admin: 11/24/19 01:00 Dose: 40 mg - Objective Vital Signs: Vital Signs Temperature 97.8 F 11/24/19 06:00 Pulse Rate 76 11/24/19 06:00 Respiratory Rate 20 11/24/19 06:00 Blood Pressure 145/74 11/24/19 06:00 O2 Sat by Pulse Oximetry (%) 96 11/23/19 22:00 Constitutional: Yes: Mild Distress Cardiovascular: Yes: Regular Rate and Rhythm Respiratory: Yes: Diminished, On Nasal O2, Rhonchi, SOB Gastrointestinal: Yes: Soft, Abdomen, Obese Genitourinary: Yes: WNL Musculoskeletal: Yes: WNL Edema: No Integumentary: Yes: WNL Wound/Incision: Yes: Clean/Dry Neurological: Yes: WNL ...Motor Strength: WNL Psychiatric: Yes: WNL Labs: CBC, BMP 11/22/19 06:00 11/22/19 06:00 INR, PTT INR 0.93 (0.83-1.09) 11/20/19 20:15 Problem List - Problems (1) COPD exacerbation Code(s): J44.1 - CHRONIC OBSTRUCTIVE PULMONARY DISEASE W (ACUTE) EXACERBATION (2) Cough Code(s): R05 - COUGH (3) Respiratory distress Code(s): R06.03 - ACUTE RESPIRATORY DISTRESS (4) SOB (shortness of breath) Code(s): R06.02 - SHORTNESS OF BREATH (5) Acute on chronic respiratory failure with hypoxia and hypercapnia Code(s): J96.21 - ACUTE AND CHRONIC RESPIRATORY FAILURE WITH HYPOXIA; J96.22 - ACUTE AND CHRONIC RESPIRATORY FAILURE WITH HYPERCAPNIA (6) HTN (hypertension) Code(s): I10 - ESSENTIAL (PRIMARY) HYPERTENSION (7) Tobacco abuse counseling Code(s): Z71.6 - TOBACCO ABUSE COUNSELING Assessment/Plan IV STEROIDS 02 SUPPORT GI PROPHYLAXIS PULMONARY EVAL APPRECIATED RENAL F/U OOB TO CHAIR DVT PROPHYLAXIS CHECK ECHO HEART FUNCTION AND EF% DIETARY CONSULT
[2019-11-24] MEDS: FAMOTIDINE 20 MG TABLET PO SCH (10:05)
[2019-11-24] MEDS: HEPARIN NA (PORCINE) 5,000 UNITS/ML 1ML VIAL SQ SCH ×2 (10:05→21:16)
--- NOTE | 2019-11-24 10:09 | PN ---
Progress Note, Physician History of Present Illness: pulmonary alert,feeling better,-resp distress - Current Medication List Current Medications: Active Medications Albuterol Sulfate (Ventolin 0.083% Nebulizer Soln -) 1 amp NEB Q4H PRN PRN Reason: SHORT OF BREATH/WHEEZING Albuterol/Ipratropium (Duoneb -) 1 amp NEB RQID [facility] Last Admin: 11/24/19 08:08 Dose: 1 amp Atorvastatin Calcium (Lipitor -) 80 mg PO HS [facility] Last Admin: 11/23/19 21:43 Dose: 80 mg Benzocaine/Menthol (Cepacol Lozenge -) 1 each MM Q4H PRN PRN Reason: SORE THROAT Famotidine (Pepcid -) 40 mg PO DAILY [facility] Last Admin: 11/23/19 09:17 Dose: 40 mg Heparin Sodium (Porcine) (Heparin -) 5,000 unit SQ BID [facility] Last Admin: 11/23/19 21:43 Dose: 5,000 unit Methylprednisolone Sodium Succinate (Solu-Medrol -) 40 mg IVPUSH Q8H-IV [facility] Last Admin: 11/24/19 01:00 Dose: 40 mg - Objective Vital Signs: Vital Signs Temperature 97.8 F 11/24/19 06:00 Pulse Rate 76 11/24/19 06:00 Respiratory Rate 20 11/24/19 08:47 Blood Pressure 145/74 11/24/19 06:00 O2 Sat by Pulse Oximetry (%) 96 11/23/19 22:00 Constitutional: Yes: Well Nourished, Calm, Obese Eyes: Yes: WNL HENT: Yes: WNL Neck: Yes: WNL Cardiovascular: Yes: Regular Rate and Rhythm, S1, S2 Respiratory: Yes: Wheezes (less wheezes bilaterally) Gastrointestinal: Yes: Normal Bowel Sounds, Soft Extremities: Yes: WNL Edema: No Labs: CBC, BMP 11/22/19 06:00 11/22/19 06:00 Assessment/Plan IMP ACUTE ON CHRONIC HYPOXEMIC/HYPERCAPNEIC RESPIRATORY FAILURE IMPROVING ADVANCED COPD WITH ACUTE EXACERBATION IMPROVING HTN ? H/O CHF TOBACCO ABUSE LIKELY JORGE RLL NODULE ? INFLAMMATORY PLAN STEROID TAPER INHALED BRONCHODILATORS SUPPLEMENTAL O2 NIPPV NEEDED ABX FORMAL SLEEP STUDIES OUTPATIENT F/U CHEST CT 4-[address] VEE Problem List - Problems (1) Acute on chronic respiratory failure with hypoxia and hypercapnia Code(s): J96.21 - ACUTE AND CHRONIC RESPIRATORY FAILURE WITH HYPOXIA; J96.22 - ACUTE AND CHRONIC RESPIRATORY FAILURE WITH HYPERCAPNIA (2) SOB (shortness of breath) Code(s): R06.02 - SHORTNESS OF BREATH (3) COPD exacerbation Code(s): J44.1 - CHRONIC OBSTRUCTIVE PULMONARY DISEASE W (ACUTE) EXACERBATION (4) HTN (hypertension) Code(s): I10 - ESSENTIAL (PRIMARY) HYPERTENSION (5) Tobacco abuse Code(s): Z72.0 - TOBACCO USE (6) Tobacco abuse counseling Code(s): Z71.6 - TOBACCO ABUSE COUNSELING
--- NOTE | 2019-11-24 15:43 | ECHO ---
Name: MAYI COOLEY Exam:Adult Echocardiogram Study Date: 11/24/2019 02:28 PM Age: 64 yrs Height: 69 in Weight: 256 lb BSA: 2.3 m2 MMode/2D Measurements & Calculations IVSd: 1.1 cm Ao root diam: 3.2 cm LVIDd: 4.4 cm LA dimension: 4.6 cm LVIDs: 3.3 cm ACS: 1.9 cm LVPWd: 1.1 cm EDV(Teich): 88.6 ml LVOT diam: 2.3 cm ESV(Ilene): 44.8 ml RV S Maurizio: 20.4 cm/sec Doppler Measurements & Calculations MV E max maurizio: 100.0 cm/sec MV A max maurizio: 99.4 cm/sec MV dec slope: 492.0 cm/sec2 MV E/A: 1.0 Ao V2 max: 150.3 cm/sec LV V1 max P.7 mmHg Ao max P.0 mmHg LV V1 mean P.8 mmHg Ao V2 mean: 100.5 cm/sec LV V1 max: 119.0 cm/sec Ao mean P.8 mmHg LV V1 mean: 77.4 cm/sec Ao V2 VTI: 27.2 cm LV V1 VTI: 23.2 cm ALIX(I,D): 3.6 cm2 ALIX(V,D): 3.3 cm2 MR max maurizio: 209.0 cm/sec SV(LVOT): 97.0 ml MR max P.5 mmHg TR max maurizio: 160.2 cm/sec PA V2 max: 68.9 cm/sec TR max P.3 mmHg PA max P.9 mmHg Med Peak E' Maurizio: 11.5 cm/sec Med E/e': 8.7 Lat Peak E' Maurizio: 13.2 cm/sec Lat E/e': 7.6 Procedure A complete two-dimensional transthoracic echocardiogram was performed (2D, M-mode, Doppler and color flow Doppler). Technically limited study. Left Ventricle The left ventricle is normal in size. Left ventricular systolic function is normal. Ejection Fraction = 55- 60%. No regional wall motion abnormalities noted. Right Ventricle The right ventricle is not well visualized. Atria The left atrium is not well visualized. Right atrium not well visualized. Mitral Valve The mitral valve is not well visualized. Tricuspid Valve The tricuspid valve is not well visualized. Aortic Valve The aortic valve is not well visualized. Pulmonic Valve The pulmonic valve is not well visualized. Great Vessels The aortic root is normal size. Pericardium/Pleura There is no pericardial effusion. Interpretation Summary Technically limited study The left ventricle is normal in size. Left ventricular systolic function is normal. No regional wall motion abnormalities noted. Ejection Fraction = 55-60%. The right ventricle is not well visualized. Valvular regurgitations not well visualized due to poor acoustic window There is no pericardial effusion. Fady Quigley MD 11/24/2019 03:43 PM
[2019-11-24] MEDS: ATORVASTATIN CA 80 MG TABLET (FP) PO SCH (21:16)
[2019-11-25 06:40] LABS: HEMATOCRIT 35.8 % (35.4-49); MCH 27.8 pg (25.7-33.7); MCHC 30.9 g/dl (32.0-35.9); MEAN CELL VOLUME 90.2 fl (80-96); MEAN PLT VOLUME 8.5 fl (7.5-11.1); PLATELET COUNT 267 K/MM3 (134-434); RBC 3.97 M/mm3 (4.00-5.60); RDW 15.1 % (11.9-15.9); WHITE BLOOD COUNT 14.4 K/mm3 (4.0-10.0)
[2019-11-25 06:46] LABS: BLOOD UREA NITROGEN 20.2 mg/dL (7-18); CALCIUM 9.4 mg/dL (8.5-10.1); CREATININE 0.9 mg/dL (0.55-1.3); POTASSIUM 4.9 mmol/L (3.5-5.1)
[2019-11-25] MEDS: ALBUTEROL SO4 2.5/IPRATROPIUM 0.5 INH SOL 3 ML VIAL.NEB. NEB SCH ×3 (07:30→15:30)
--- NOTE | 2019-11-25 08:22 | DS ---
Physical Examination Vital Signs: Vital Signs Temperature 98.4 F 11/25/19 05:00 Pulse Rate 95 H 11/25/19 05:00 Respiratory Rate 24 H 11/25/19 05:00 Blood Pressure 156/91 11/25/19 05:00 O2 Sat by Pulse Oximetry (%) 97 11/24/19 21:00 Constitutional: Yes: No Distress Eyes: Yes: WNL HENT: Yes: WNL Neck: Yes: WNL Cardiovascular: Yes: Regular Rate and Rhythm Respiratory: Yes: Diminished Gastrointestinal: Yes: Soft, Abdomen, Obese Edema: No Labs: CBC, BMP 11/25/19 05:53 11/25/19 05:53 Discharge Summary Problems reviewed: Yes Reason For Visit: SOB, RESPIRATORY DISTRESS, ACUTE EXACERBATION COPD Current Active Problems COPD exacerbation (Acute) Cough (Acute) Respiratory distress (Acute) SOB (shortness of breath) (Acute) Procedures: Principal: STEROID IV THERAPY, 02 SUPPORT Other Procedures: CT SCAN/ECHO Plan of Treatment: IV STEROIDS, NEBS, PULM/CARDIO WORKUP CAN COMPLETE OUTPATIENT Condition: Improved - Instructions Diet, Activity, Other Instructions: PREDNISONE THERAPY TAPER DETAILED IN NOTES SEE YOUR PRIMARY DOCTOR IN 1 WEEK Referrals: Anibal Bond MD [Primary Care Provider] - Disposition: [facility] - Home Medications Comprehensive Discharge Medication List: Ambulatory Orders Atorvastatin Ca [Lipitor] 80 mg PO HS 01/30/19 Furosemide [Lasix] 40 mg PO DAILY 01/30/19 Ranitidine [Zantac -] 300 mg PO DAILY 01/30/19 Albuterol 2.5/Ipratropium 0.5 [Duoneb -] 1 amp NEB PRN PRN 01/31/19 Lisinopril [Prinivil] 20 mg PO DAILY #30 tablet 02/08/19 Albuterol Sulfate Inhaler - [Ventolin HFA Inhaler -] 1 inh PO Q4H PRN 11/20/19 Albuterol 2.5/Ipratropium 0.5 [Duoneb -] 1 amp NEB RQID amp 11/25/19 Prednisone See Taper PO DAILY #60 tablet 11/25/19 Prescription Drug Monitoring Program (I-STOP) results: I-STOP not reviewed
[2019-11-25] MEDS: methylPREDNISolone NA SUCC 40 MG/1 ML VIAL IVPUSH SCH (10:23)
[2019-11-25] MEDS: HEPARIN NA (PORCINE) 5,000 UNITS/ML 1ML VIAL SQ SCH (10:23)
[2019-11-25] MEDS: FAMOTIDINE 20 MG TABLET PO SCH (10:24)
[2019-11-25 16:40] VITALS: BP 122/85; PULSE 88; TEMP 98.2
== END 2019-11-25 20:35 | disposition home health service (06) | DRG 190 ==
LOC: JER 19:48 → JERBED 23:46 → J4W 11-21 02:00
PROVIDERS: ADMIT Internal Medicine; ATTEND Family Medicine
DX: J44.1 Chronic obstructive pulmonary disease with (acute) exacerbation (principal); J96.21 Acute and chronic respiratory failure with hypoxia; J96.22 Acute and chronic respiratory failure with hypercapnia; N17.9 Acute kidney failure, unspecified; I50.30 Unspecified diastolic (congestive) heart failure; E78.00 Pure hypercholesterolemia, unspecified; F17.210 Nicotine dependence, cigarettes, uncomplicated; D72.829 Elevated white blood cell count, unspecified; R00.0 Tachycardia, unspecified; D64.9 Anemia, unspecified; R91.1 Solitary pulmonary nodule; I11.0 Hypertensive heart disease with heart failure; N28.9 Disorder of kidney and ureter, unspecified; G47.33 Obstructive sleep apnea (adult) (pediatric); E66.9 Obesity, unspecified; Z68.39 Body mass index [BMI] 39.0-39.9, adult; Z71.6 Tobacco abuse counseling
CPT/HCPCS: 36415; 36600; 71045-TC-FY; 71250-TC; 80048; 80053; 82550; 82553; 82803; 83605; 83735; 83880; 84484; 85025; 85027; 85610; 85730; 87040; 93005; 93010; 93306-TC; 94640; 94660; 99284-25; J0131; J1644; J7030

== ENCOUNTER 2022-01-21 11:22 | Inpatient (IN) | payer OTHER ==
[2022-01-21 12:37] LABS: EOS % 2.3 % (0-4.5); HEMATOCRIT 31.5 % (35.4-49); HEMOGLOBIN 10.1 GM/dL (11.7-16.9); MCH 31.3 pg (25.7-33.7); MCHC 32.2 g/dl (32.0-35.9); MEAN CELL VOLUME 97.3 fl (80-96); MEAN PLT VOLUME 7.1 fl (7.5-11.1); NEUT % 72.7 % (42.8-82.8); PLATELET COUNT 344 10^3/uL (134-434); RBC 3.23 M/mm3 (4.00-5.60); RDW 13.9 % (11.9-15.9); WHITE BLOOD COUNT 8.3 K/mm3 (4.0-10.0)
[2022-01-21 13:04] LABS: ALBUMIN 3.3 g/dl (3.4-5.0); BLOOD UREA NITROGEN 10.4 mg/dL (7-18); CALCIUM 9.1 mg/dL (8.5-10.1)
[2022-01-21 13:08] LABS: BILIRUBIN,TOTAL 0.3 mg/dL (0.2-1); TOT PROT 6.8 g/dl (6.4-8.2)
[2022-01-21 13:11] LABS: N-TERMINAL BNP 273.6 pg/ml (5-125)
[2022-01-21] MEDS ORDERED: ALBUTEROL SO4 2.5/IPRATROPIUM 0.5 INH SOL 3 ML VIAL.NEB. NEB ONE (13:58)
[2022-01-21] MEDS ORDERED: FUROSEMIDE 40 MG/4 ML INJECTABLE VIAL IVPUSH ONE (14:16)
[2022-01-21] MEDS ORDERED: methylPREDNISolone NA SUCC 125 MG/2 ML VIAL IVPUSH ONE (14:19)
[2022-01-21] MEDS ORDERED: methylPREDNISolone NA SUCC 125 MG/2 ML VIAL ONE (14:24)
[2022-01-21] MEDS ORDERED: FUROSEMIDE 40 MG/4 ML INJECTABLE VIAL ONE (14:24)
[2022-01-21] MEDS ORDERED: ALBUTEROL SO4 2.5/IPRATROPIUM 0.5 INH SOL 3 ML VIAL.NEB. NEB PRN ×2 (14:57→15:14)
[2022-01-21] MEDS: methylPREDNISolone NA SUCC 125 MG/2 ML VIAL IVPB SCH ×2 (15:02→20:41)
[2022-01-21] MEDS ORDERED: ENOXAPARIN NA (PORCINE) 40 MG/0.4 ML DISP.SYRIN SQ ONE (15:30)
[2022-01-21] MEDS ORDERED: PANTOPRAZOLE 20 MG TABLET PO ONE (15:30)
[2022-01-21] MEDS: PANTOPRAZOLE 20 MG TABLET PO SCH (15:42)
[2022-01-21] MEDS: ENOXAPARIN NA (PORCINE) 40 MG/0.4 ML DISP.SYRIN SQ SCH (15:42)
[2022-01-21] MEDS ORDERED: AZITHROMYCIN 250 MG TABLET PO ONE (17:58)
[2022-01-21] MEDS ORDERED: methylPREDNISolone NA SUCC 40 MG/1 ML VIAL ONE (20:27)
[2022-01-21] MEDS ORDERED: ATORVASTATIN CA 80 MG TABLET (FP) ONE (20:27)
[2022-01-21] MEDS: ATORVASTATIN CA 80 MG TABLET (FP) PO SCH (21:21)
[2022-01-22] MEDS: methylPREDNISolone NA SUCC 125 MG/2 ML VIAL IVPB SCH ×3 (02:30→14:21)
[2022-01-22] MEDS: BENZOCAINE/MENTH/CETYLPYRD CL 1 EACH LOZENGE MM PRN ×4 (04:14→21:07)
[2022-01-22] MEDS: PANTOPRAZOLE 20 MG TABLET PO SCH (09:25)
[2022-01-22] MEDS: ENOXAPARIN NA (PORCINE) 40 MG/0.4 ML DISP.SYRIN SQ SCH (09:25)
[2022-01-22] MEDS: FUROSEMIDE 40 MG TABLET (FP) PO SCH (09:29)
[2022-01-22] MEDS: AZITHROMYCIN 250 MG TABLET PO SCH (09:29)
[2022-01-22] MEDS: LISINOPRIL 20 MG TABLET PO SCH (09:29)
[2022-01-22] MEDS: SPIRONOLACTONE 25 MG TABLET PO SCH (09:29)
[2022-01-22 12:51] LABS: BASO % 0.1 % (0-2.0); HEMATOCRIT 30.2 % (35.4-49); HEMOGLOBIN 9.7 GM/dL (11.7-16.9); LYMPH % 9.6 % (8-40); MCH 31.2 pg (25.7-33.7); MCHC 32.1 g/dl (32.0-35.9); MEAN PLT VOLUME 7.4 fl (7.5-11.1); MONO % 3.4 % (3.8-10.2); NEUT % 86.9 % (42.8-82.8); PLATELET COUNT 344 10^3/uL (134-434); RBC 3.11 M/mm3 (4.00-5.60); RDW 13.5 % (11.9-15.9)
[2022-01-22 13:07] LABS: CALCIUM 9.4 mg/dL (8.5-10.1)
[2022-01-22 13:08] LABS: BLOOD UREA NITROGEN 13.5 mg/dL (7-18); MAGNESIUM 1.8 mg/dL (1.8-2.4)
[2022-01-22 13:11] LABS: CREATININE 0.7 mg/dL (0.55-1.3)
[2022-01-22 13:12] LABS: BILIRUBIN,TOTAL 0.2 mg/dL (0.2-1); TOT PROT 6.7 g/dl (6.4-8.2)
[2022-01-22] MEDS: FLUTICASONE/UMECLIDIN/VILANTER(200-62.5-25 TRELEGY ELLIPTA) INAHLER IH SCH (13:41)
[2022-01-22] MEDS: NICOTINE 7 MG/24 HOURS TOPICAL PATCH TD SCH (14:18)
[2022-01-22] MEDS: ACETAMINOPHEN 1000 MG/100 ML BAG IVPB PRN (14:18)
[2022-01-22] MEDS: ALBUTEROL SO4 0.083% IH SOL 2.5 MG/3 ML VIAL.NEB. NEB SCH ×2 (16:40→20:25)
[2022-01-22] MEDS ORDERED: methylPREDNISolone NA SUCC 40 MG/1 ML VIAL IVPB SCH (19:45)
[2022-01-22] MEDS: methylPREDNISolone NA SUCC 40 MG/1 ML VIAL IVPB SCH (21:04)
[2022-01-22] MEDS: ATORVASTATIN CA 80 MG TABLET (FP) PO SCH (21:04)
[2022-01-23] MEDS: BENZOCAINE/MENTH/CETYLPYRD CL 1 EACH LOZENGE MM PRN ×3 (01:44→20:12)
[2022-01-23] MEDS: methylPREDNISolone NA SUCC 40 MG/1 ML VIAL IVPB SCH ×3 (02:16→22:05)
[2022-01-23 07:34] LABS: BASO % 0.1 % (0-2.0); HEMATOCRIT 29.2 % (35.4-49); HEMOGLOBIN 9.1 GM/dL (11.7-16.9); LYMPH % 6.1 % (8-40); MCH 30.3 pg (25.7-33.7); MCHC 31.1 g/dl (32.0-35.9); MEAN CELL VOLUME 97.4 fl (80-96); MEAN PLT VOLUME 7.9 fl (7.5-11.1); MONO % 3.3 % (3.8-10.2); NEUT % 90.5 % (42.8-82.8); PLATELET COUNT 362 10^3/uL (134-434); RDW 13.5 % (11.9-15.9); WHITE BLOOD COUNT 15.9 K/mm3 (4.0-10.0)
[2022-01-23 07:53] LABS: CALCIUM 8.8 mg/dL (8.5-10.1)
[2022-01-23 07:55] LABS: ALBUMIN 2.8 g/dl (3.4-5.0); BLOOD UREA NITROGEN 18.7 mg/dL (7-18)
[2022-01-23 07:58] LABS: BILIRUBIN,TOTAL 0.3 mg/dL (0.2-1); CREATININE 0.7 mg/dL (0.55-1.3); TOT PROT 6.2 g/dl (6.4-8.2)
[2022-01-23] MEDS: ALBUTEROL SO4 0.083% IH SOL 2.5 MG/3 ML VIAL.NEB. NEB SCH ×3 (08:36→20:10)
[2022-01-23] MEDS: AZITHROMYCIN 250 MG TABLET PO SCH (09:11)
[2022-01-23] MEDS: PANTOPRAZOLE 20 MG TABLET PO SCH (09:11)
[2022-01-23] MEDS: FUROSEMIDE 40 MG TABLET (FP) PO SCH (09:11)
[2022-01-23] MEDS: SPIRONOLACTONE 25 MG TABLET PO SCH (09:11)
[2022-01-23] MEDS: NICOTINE 7 MG/24 HOURS TOPICAL PATCH TD SCH (09:11)
[2022-01-23] MEDS: LISINOPRIL 20 MG TABLET PO SCH (09:11)
[2022-01-23] MEDS: ENOXAPARIN NA (PORCINE) 40 MG/0.4 ML DISP.SYRIN SQ SCH (09:11)
[2022-01-23] MEDS: FLUTICASONE/UMECLIDIN/VILANTER(200-62.5-25 TRELEGY ELLIPTA) INAHLER IH SCH (09:12)
[2022-01-23] MEDS: ACETAMINOPHEN 1000 MG/100 ML BAG IVPB PRN (13:13)
[2022-01-23] MEDS: ATORVASTATIN CA 80 MG TABLET (FP) PO SCH (22:06)
[2022-01-24 08:28] LABS: HEMATOCRIT 31.3 % (35.4-49); HEMOGLOBIN 9.7 GM/dL (11.7-16.9); MCH 30.4 pg (25.7-33.7); MCHC 30.8 g/dl (32.0-35.9); MEAN CELL VOLUME 98.5 fl (80-96); MEAN PLT VOLUME 7.9 fl (7.5-11.1); PLATELET COUNT 369 10^3/uL (134-434); RBC 3.18 M/mm3 (4.00-5.60); RDW 13.6 % (11.9-15.9); WHITE BLOOD COUNT 17.3 K/mm3 (4.0-10.0)
[2022-01-24 08:41] LABS: ALBUMIN 2.9 g/dl (3.4-5.0); BLOOD UREA NITROGEN 19.1 mg/dL (7-18); CALCIUM 9.2 mg/dL (8.5-10.1)
[2022-01-24 08:44] LABS: CREATININE 0.7 mg/dL (0.55-1.3)
[2022-01-24 08:45] LABS: BILIRUBIN,TOTAL 0.2 mg/dL (0.2-1); TOT PROT 6.4 g/dl (6.4-8.2)
[2022-01-24] MEDS: ALBUTEROL SO4 0.083% IH SOL 2.5 MG/3 ML VIAL.NEB. NEB SCH ×3 (08:50→20:17)
[2022-01-24] MEDS: FUROSEMIDE 40 MG TABLET (FP) PO SCH (09:12)
[2022-01-24] MEDS: LISINOPRIL 20 MG TABLET PO SCH (09:12)
[2022-01-24] MEDS: SPIRONOLACTONE 25 MG TABLET PO SCH (09:12)
[2022-01-24] MEDS: AZITHROMYCIN 250 MG TABLET PO SCH (09:12)
[2022-01-24] MEDS: NICOTINE 7 MG/24 HOURS TOPICAL PATCH TD SCH (09:13)
[2022-01-24] MEDS: ENOXAPARIN NA (PORCINE) 40 MG/0.4 ML DISP.SYRIN SQ SCH (09:13)
[2022-01-24] MEDS: methylPREDNISolone NA SUCC 40 MG/1 ML VIAL IVPB SCH ×2 (09:13→21:28)
[2022-01-24] MEDS: PANTOPRAZOLE 40 MG TABLET PO SCH (09:13)
[2022-01-24] MEDS: FLUTICASONE/UMECLIDIN/VILANTER(200-62.5-25 TRELEGY ELLIPTA) INAHLER IH SCH (09:14)
[2022-01-24] MEDS: BENZOCAINE/MENTH/CETYLPYRD CL 1 EACH LOZENGE MM PRN ×2 (10:41→20:00)
[2022-01-24] MEDS: ATORVASTATIN CA 80 MG TABLET (FP) PO SCH (21:27)
[2022-01-25] MEDS: BENZOCAINE/MENTH/CETYLPYRD CL 1 EACH LOZENGE MM PRN ×3 (02:27→20:10)
[2022-01-25] MEDS ORDERED: ACETAMINOPHEN 325 MG TABLET (FP) PO ONE (02:54)
[2022-01-25] MEDS: ALBUTEROL SO4 0.083% IH SOL 2.5 MG/3 ML VIAL.NEB. NEB SCH ×3 (08:06→20:41)
[2022-01-25] MEDS ORDERED: FUROSEMIDE 40 MG/4 ML INJECTABLE VIAL IVPUSH ONE (08:15)
[2022-01-25] MEDS: FUROSEMIDE 40 MG TABLET (FP) PO SCH (09:18)
[2022-01-25] MEDS: PANTOPRAZOLE 40 MG TABLET PO SCH (09:18)
[2022-01-25] MEDS: SPIRONOLACTONE 25 MG TABLET PO SCH (09:18)
[2022-01-25] MEDS: methylPREDNISolone NA SUCC 40 MG/1 ML VIAL IVPB SCH ×2 (09:18→21:24)
[2022-01-25] MEDS: LISINOPRIL 20 MG TABLET PO SCH (09:18)
[2022-01-25] MEDS: NICOTINE 7 MG/24 HOURS TOPICAL PATCH TD SCH (09:19)
[2022-01-25] MEDS: ENOXAPARIN NA (PORCINE) 40 MG/0.4 ML DISP.SYRIN SQ SCH (09:25)
[2022-01-25] MEDS: FLUTICASONE/UMECLIDIN/VILANTER(200-62.5-25 TRELEGY ELLIPTA) INAHLER IH SCH (10:00)
[2022-01-25] MEDS ORDERED: ACETAMINOPHEN 325 MG TABLET (FP) ONE (10:07)
[2022-01-25] MEDS: ATORVASTATIN CA 80 MG TABLET (FP) PO SCH (21:24)
[2022-01-26] MEDS: BENZOCAINE/MENTH/CETYLPYRD CL 1 EACH LOZENGE MM PRN ×3 (04:43→18:43)
[2022-01-26] MEDS: ALBUTEROL SO4 0.083% IH SOL 2.5 MG/3 ML VIAL.NEB. NEB SCH ×3 (08:38→20:21)
[2022-01-26] MEDS: PANTOPRAZOLE 40 MG TABLET PO SCH (09:41)
[2022-01-26] MEDS: NICOTINE 7 MG/24 HOURS TOPICAL PATCH TD SCH (09:42)
[2022-01-26] MEDS: methylPREDNISolone NA SUCC 40 MG/1 ML VIAL IVPB SCH (09:42)
[2022-01-26] MEDS: ENOXAPARIN NA (PORCINE) 40 MG/0.4 ML DISP.SYRIN SQ SCH (09:42)
[2022-01-26] MEDS: FUROSEMIDE 40 MG TABLET (FP) PO SCH (09:42)
[2022-01-26] MEDS: LISINOPRIL 20 MG TABLET PO SCH (09:42)
[2022-01-26] MEDS: SPIRONOLACTONE 25 MG TABLET PO SCH (09:42)
[2022-01-26] MEDS: FLUTICASONE/UMECLIDIN/VILANTER(200-62.5-25 TRELEGY ELLIPTA) INAHLER IH SCH (09:43)
[2022-01-26] MEDS: predniSONE 20 MG TABLET (UD) PO SCH (21:43)
[2022-01-26] MEDS: ATORVASTATIN CA 80 MG TABLET (FP) PO SCH (21:43)
[2022-01-27] MEDS: ALBUTEROL SO4 0.083% IH SOL 2.5 MG/3 ML VIAL.NEB. NEB SCH (08:50)
[2022-01-27] MEDS: ENOXAPARIN NA (PORCINE) 40 MG/0.4 ML DISP.SYRIN SQ SCH (09:26)
[2022-01-27] MEDS: NICOTINE 7 MG/24 HOURS TOPICAL PATCH TD SCH (09:26)
[2022-01-27] MEDS: SPIRONOLACTONE 25 MG TABLET PO SCH (09:26)
[2022-01-27] MEDS: predniSONE 20 MG TABLET (UD) PO SCH ×2 (09:26→21:30)
[2022-01-27] MEDS: PANTOPRAZOLE 40 MG TABLET PO SCH (09:26)
[2022-01-27] MEDS: LISINOPRIL 20 MG TABLET PO SCH (09:26)
[2022-01-27] MEDS: FUROSEMIDE 40 MG TABLET (FP) PO SCH (09:26)
[2022-01-27] MEDS: FLUTICASONE/UMECLIDIN/VILANTER(200-62.5-25 TRELEGY ELLIPTA) INAHLER IH SCH (09:27)
[2022-01-27] MEDS: ATORVASTATIN CA 80 MG TABLET (FP) PO SCH (21:30)
[2022-01-27] MEDS: ACETAMINOPHEN 500 MG TABLET (FP) PO PRN (22:34)
[2022-01-27] MEDS: BENZOCAINE/MENTH/CETYLPYRD CL 1 EACH LOZENGE MM PRN (22:34)
[2022-01-27 22:41] VITALS: BMI 33.7
[2022-01-28] MEDS: BENZOCAINE/MENTH/CETYLPYRD CL 1 EACH LOZENGE MM PRN ×2 (02:59→09:36)
[2022-01-28] MEDS: PANTOPRAZOLE 40 MG TABLET PO SCH (09:25)
[2022-01-28] MEDS: NICOTINE 7 MG/24 HOURS TOPICAL PATCH TD SCH (09:25)
[2022-01-28] MEDS: SPIRONOLACTONE 25 MG TABLET PO SCH (09:25)
[2022-01-28] MEDS: LISINOPRIL 20 MG TABLET PO SCH (09:25)
[2022-01-28] MEDS: predniSONE 20 MG TABLET (UD) PO SCH ×2 (09:25→21:11)
[2022-01-28] MEDS: FUROSEMIDE 40 MG TABLET (FP) PO SCH (09:25)
[2022-01-28] MEDS: ENOXAPARIN NA (PORCINE) 40 MG/0.4 ML DISP.SYRIN SQ SCH (09:26)
[2022-01-28] MEDS: FLUTICASONE/UMECLIDIN/VILANTER(200-62.5-25 TRELEGY ELLIPTA) INAHLER IH SCH (09:26)
[2022-01-28] MEDS: ACETAMINOPHEN 500 MG TABLET (FP) PO PRN ×2 (09:35→19:35)
[2022-01-28] MEDS: ALBUTEROL SO4 2.5/IPRATROPIUM 0.5 INH SOL 3 ML VIAL.NEB. NEB PRN (21:04)
[2022-01-28] MEDS: ATORVASTATIN CA 80 MG TABLET (FP) PO SCH (21:11)
[2022-01-29] MEDS: BENZOCAINE/MENTH/CETYLPYRD CL 1 EACH LOZENGE MM PRN (05:01)
[2022-01-29] MEDS: ALBUTEROL SO4 2.5/IPRATROPIUM 0.5 INH SOL 3 ML VIAL.NEB. NEB PRN ×3 (07:42→20:10)
[2022-01-29] MEDS: PANTOPRAZOLE 40 MG TABLET PO SCH (09:55)
[2022-01-29] MEDS: predniSONE 20 MG TABLET (UD) PO SCH (09:55)
[2022-01-29] MEDS: NICOTINE 7 MG/24 HOURS TOPICAL PATCH TD SCH (09:55)
[2022-01-29] MEDS: FUROSEMIDE 40 MG TABLET (FP) PO SCH (09:56)
[2022-01-29] MEDS: SPIRONOLACTONE 25 MG TABLET PO SCH (09:56)
[2022-01-29] MEDS: LISINOPRIL 20 MG TABLET PO SCH (09:56)
[2022-01-29] MEDS: FLUTICASONE/UMECLIDIN/VILANTER(200-62.5-25 TRELEGY ELLIPTA) INAHLER IH SCH (09:59)
[2022-01-29] MEDS: predniSONE 5 MG TABLET (UD) PO SCH (21:23)
[2022-01-29] MEDS: ATORVASTATIN CA 80 MG TABLET (FP) PO SCH (21:24)
[2022-01-30] MEDS: FUROSEMIDE 40 MG TABLET (FP) PO SCH (09:39)
[2022-01-30] MEDS: PANTOPRAZOLE 40 MG TABLET PO SCH (09:39)
[2022-01-30] MEDS: SPIRONOLACTONE 25 MG TABLET PO SCH (09:39)
[2022-01-30] MEDS: LISINOPRIL 20 MG TABLET PO SCH (09:39)
[2022-01-30] MEDS: predniSONE 5 MG TABLET (UD) PO SCH ×2 (09:39→21:43)
[2022-01-30] MEDS: NICOTINE 7 MG/24 HOURS TOPICAL PATCH TD SCH (09:39)
[2022-01-30] MEDS: FLUTICASONE/UMECLIDIN/VILANTER(200-62.5-25 TRELEGY ELLIPTA) INAHLER IH SCH (09:44)
[2022-01-30] MEDS: ALBUTEROL SO4 2.5/IPRATROPIUM 0.5 INH SOL 3 ML VIAL.NEB. NEB SCH ×3 (13:26→20:00)
[2022-01-30] MEDS: ATORVASTATIN CA 80 MG TABLET (FP) PO SCH (21:43)
[2022-01-31] MEDS: ALBUTEROL SO4 2.5/IPRATROPIUM 0.5 INH SOL 3 ML VIAL.NEB. NEB SCH ×4 (07:41→20:10)
[2022-01-31] MEDS: SPIRONOLACTONE 25 MG TABLET PO SCH (09:59)
[2022-01-31] MEDS: FUROSEMIDE 40 MG TABLET (FP) PO SCH (09:59)
[2022-01-31] MEDS: predniSONE 5 MG TABLET (UD) PO SCH (09:59)
[2022-01-31] MEDS: NICOTINE 7 MG/24 HOURS TOPICAL PATCH TD SCH (09:59)
[2022-01-31] MEDS: PANTOPRAZOLE 40 MG TABLET PO SCH (10:00)
[2022-01-31] MEDS: LISINOPRIL 20 MG TABLET PO SCH (10:00)
[2022-01-31] MEDS: FLUTICASONE/UMECLIDIN/VILANTER(200-62.5-25 TRELEGY ELLIPTA) INAHLER IH SCH (10:02)
[2022-01-31] MEDS: ACETAMINOPHEN 500 MG TABLET (FP) PO PRN (10:20)
[2022-01-31 13:08] LABS: SARS-CoV-2 NAA Not Detected (Not Detected)
[2022-01-31 15:59] VITALS: BP 132/77; PULSE 94; TEMP 98.2
[2022-01-31 16:17] LABS: ALBUMIN 3.4 g/dl (3.4-5.0); CALCIUM 9.4 mg/dL (8.5-10.1)
[2022-01-31 16:18] LABS: BLOOD UREA NITROGEN 22.5 mg/dL (7-18)
[2022-01-31 16:20] LABS: CREATININE 0.9 mg/dL (0.55-1.3)
[2022-01-31 16:22] LABS: BILIRUBIN,TOTAL 0.2 mg/dL (0.2-1); TOT PROT 6.9 g/dl (6.4-8.2)
[2022-01-31 16:32] LABS: HEMATOCRIT 33.6 % (35.4-49); HEMOGLOBIN 10.3 GM/dL (11.7-16.9); MCH 29.8 pg (25.7-33.7); MCHC 30.8 g/dl (32.0-35.9); MEAN CELL VOLUME 96.6 fl (80-96); MEAN PLT VOLUME 8.5 fl (7.5-11.1); PLATELET COUNT 420 10^3/uL (134-434); RBC 3.47 M/mm3 (4.00-5.60); RDW 13.6 % (11.9-15.9); WHITE BLOOD COUNT 21.6 K/mm3 (4.0-10.0)
== END 2022-01-31 20:47 | DRG 190 ==
LOC: JER 11:22 → JERBED 14:55 → MERGE 14:55 → J4W 21:20
PROVIDERS: ADMIT Internal Medicine; ATTEND Family Medicine
DX: J44.1 Chronic obstructive pulmonary disease with (acute) exacerbation (principal); I50.33 Acute on chronic diastolic (congestive) heart failure; J96.11 Chronic respiratory failure with hypoxia; I11.0 Hypertensive heart disease with heart failure; E66.9 Obesity, unspecified; K40.90 Unilateral inguinal hernia, without obstruction or gangrene, not specified as recurrent; I25.10 Atherosclerotic heart disease of native coronary artery without angina pectoris; E78.5 Hyperlipidemia, unspecified; E05.90 Thyrotoxicosis, unspecified without thyrotoxic crisis or storm; Z68.33 Body mass index [BMI] 33.0-33.9, adult; I27.20 Pulmonary hypertension, unspecified
CPT/HCPCS: 36415; 71045-TC-FY; 72192-TC; 80053; 82272; 82728; 82962; 83036; 83540; 83550; 83735; 83880; 84439; 84443; 84481; 84484; 85025; 85027; 86376; 93005; 93010; 93306-TC; 93970-TC; 94640; 97116-GP; 97162-GP; 99285-25; C9803; Q9967; U0003; U0005

== ENCOUNTER 2023-07-24 05:30 | Inpatient (IN) | payer OTHER ==
[2023-07-24] MEDS ORDERED: DEXAMETHASONE SOD PHOSPHATE 10 MG/1 ML VIAL IVPUSH ONE (05:40)
[2023-07-24] MEDS ORDERED: ACETAMINOPHEN 1000 MG/100 ML BAG IVPB ONE (05:40)
[2023-07-24] MEDS ORDERED: morphine SULFATE 4 MG/ML VIAL IVPUSH ONE ×2 (05:42→07:12)
[2023-07-24] MEDS ORDERED: DEXAMETHASONE SOD PHOSPHATE 10 MG/1 ML VIAL ONE (06:12)
[2023-07-24] MEDS ORDERED: ACETAMINOPHEN INJECTION 100 ML IVPB ONE (06:12)
[2023-07-24 06:16] LABS: VENOUS BASE EXCESS -0.3 mmol/L (-2-2); VENOUS O2 SATURATION 27.4 % (70-80); VENOUS PCO2 60.8 mmHg (38-52); VENOUS PH 7.277 (7.310-7.410)
[2023-07-24] MEDS: ALBUTEROL SO4 2.5/IPRATROPIUM 0.5 INH SOL 3 ML VIAL.NEB. NEB SCH ×6 (06:22→20:05)
[2023-07-24 06:25] LABS: BASO % 0.9 % (0-2.0); EOS % 1.1 % (0-4.5); HEMATOCRIT 42.6 % (35.4-49); HEMOGLOBIN 13.2 GM/dL (11.7-16.9); MCH 26.9 pg (25.7-33.7); MEAN CELL VOLUME 86.9 fl (80-96); MEAN PLT VOLUME 8.2 fl (7.5-11.1); MONO % 6.1 % (3.8-10.2); NEUT % 78.9 % (42.8-82.8); PLATELET COUNT 407 10^3/uL (134-434); RDW 16.4 % (11.9-15.9); WHITE BLOOD COUNT 11.1 K/mm3 (4.0-10.0)
[2023-07-24] MEDS ORDERED: ALBUTEROL SO4 2.5/IPRATROPIUM 0.5 INH SOL 3 ML VIAL.NEB. NEB ONE ×2 (06:28→15:17)
[2023-07-24 06:38] LABS: POTASSIUM 4.1 mmol/L (3.5-5.1)
[2023-07-24 06:40] LABS: ALBUMIN 4.1 g/dl (3.4-5.0); CALCIUM 9.5 mg/dL (8.5-10.1)
[2023-07-24 06:41] LABS: MAGNESIUM 1.9 mg/dL (1.8-2.4)
[2023-07-24 06:43] LABS: PHOSPHOROUS 3.7 mg/dL (2.5-4.9)
[2023-07-24 06:44] LABS: CREATININE 0.8 mg/dL (0.55-1.3)
[2023-07-24 06:45] LABS: BILIRUBIN,TOTAL 0.3 mg/dL (0.2-1); TOT PROT 9.2 g/dl (6.4-8.2)
[2023-07-24 06:49] LABS: INR 1.09 (0.83-1.09); PROTHROMBIN TIME (PATIENT) 12.6 SEC (9.7-13.0)
[2023-07-24 06:49] LABS: N-TERMINAL BNP 53.8 pg/ml (5-125)
[2023-07-24 06:52] LABS: ACTIVATED PTT 30.7 SECONDS (25.2-36.5)
[2023-07-24] MEDS ORDERED: AZITHROMYCIN IVPB 500 MG in DEXTROSE 5%-WATER - 250 ML IVPB ONE (07:14)
[2023-07-24] MEDS ORDERED: AZITHROMYCIN IVPB 500 MG/250 ML BAG IVPB ONE (07:21)
[2023-07-24] MEDS ORDERED: CEFTRIAXONE 1 GM/50 ML BAG ONE (11:17)
[2023-07-24] MEDS: LACTATED RINGERS SOLUTION 1,000 ML IV SCH (14:35)
[2023-07-24] MEDS: methylPREDNISolone NA SUCC 40 MG/1 ML VIAL IVPUSH SCH (15:15)
[2023-07-24] MEDS ORDERED: methylPREDNISolone NA SUCC 40 MG/1 ML VIAL ONE (15:17)
[2023-07-24 18:21] VITALS: BMI 20.2
[2023-07-24] MEDS: BUDESONIDE/FORMETEROL FUMARATE 160/4.5 mcg INHALER IH SCH (23:15)
[2023-07-25] MEDS: ALBUTEROL SO4 2.5/IPRATROPIUM 0.5 INH SOL 3 ML VIAL.NEB. NEB SCH ×4 (07:35→20:30)
[2023-07-25] MEDS: methylPREDNISolone NA SUCC 40 MG/1 ML VIAL IVPUSH SCH (09:19)
[2023-07-25] MEDS: BUDESONIDE/FORMETEROL FUMARATE 160/4.5 mcg INHALER IH SCH ×2 (09:19→21:21)
[2023-07-25 09:49] LABS: BASO % 0.2 % (0-2.0); EOS % 0.2 % (0-4.5); HEMATOCRIT 34.7 % (35.4-49); HEMOGLOBIN 10.7 GM/dL (11.7-16.9); LYMPH % 17.1 % (8-40); MCH 26.7 pg (25.7-33.7); MCHC 30.9 g/dl (32.0-35.9); MEAN CELL VOLUME 86.4 fl (80-96); MEAN PLT VOLUME 8.2 fl (7.5-11.1); MONO % 6.3 % (3.8-10.2); NEUT % 76.2 % (42.8-82.8); PLATELET COUNT 327 10^3/uL (134-434); RBC 4.02 M/mm3 (4.00-5.60); RDW 16.3 % (11.9-15.9); WHITE BLOOD COUNT 9.9 K/mm3 (4.0-10.0)
[2023-07-25] MEDS ORDERED: CEFTRIAXONE 1 GM in DEXTROSE 5%-WATER - 50 ML IVPB SCH (10:00)
[2023-07-25 10:07] LABS: POTASSIUM 4.1 mmol/L (3.5-5.1)
[2023-07-25 10:15] LABS: BLOOD UREA NITROGEN 18.2 mg/dL (7-18); MAGNESIUM 1.9 mg/dL (1.8-2.4)
[2023-07-25 10:17] LABS: BILIRUBIN,TOTAL 0.2 mg/dL (0.2-1)
[2023-07-25 10:18] LABS: CREATININE 0.7 mg/dL (0.55-1.3)
[2023-07-25 10:20] LABS: TOT PROT 7.1 g/dl (6.4-8.2)
[2023-07-25] MEDS ORDERED: ALBUTEROL SO4 0.083% IH SOL 2.5 MG/3 ML VIAL.NEB. NEB SCH ×2 (14:00→20:00)
[2023-07-25] MEDS ORDERED: ALBUTEROL SO4 0.083% IH SOL 2.5 MG/3 ML VIAL.NEB. NEB PRN (14:42)
[2023-07-25] MEDS: LACTATED RINGERS SOLUTION 1,000 ML IV SCH (19:10)
[2023-07-25] MEDS: ATORVASTATIN CA 80 MG TABLET (FP) PO SCH (21:20)
[2023-07-26] MEDS: ACETAMINOPHEN 325 MG TABLET (FP) PO PRN ×3 (02:11→21:21)
[2023-07-26] MEDS: ALBUTEROL SO4 2.5/IPRATROPIUM 0.5 INH SOL 3 ML VIAL.NEB. NEB SCH ×4 (07:25→20:00)
[2023-07-26] MEDS: SPIRONOLACTONE 25 MG TABLET PO SCH (10:17)
[2023-07-26] MEDS: LISINOPRIL 20 MG TABLET PO SCH (10:18)
[2023-07-26] MEDS: FUROSEMIDE 40 MG TABLET (FP) PO SCH (10:18)
[2023-07-26] MEDS: methylPREDNISolone NA SUCC 40 MG/1 ML VIAL IVPUSH SCH ×2 (10:19→18:13)
[2023-07-26] MEDS: BUDESONIDE/FORMETEROL FUMARATE 160/4.5 mcg INHALER IH SCH ×2 (10:51→21:22)
[2023-07-26] MEDS: LACTATED RINGERS SOLUTION 1,000 ML IV SCH (21:20)
[2023-07-26] MEDS: ATORVASTATIN CA 80 MG TABLET (FP) PO SCH (21:21)
[2023-07-27] MEDS: methylPREDNISolone NA SUCC 40 MG/1 ML VIAL IVPUSH SCH ×3 (01:58→18:01)
[2023-07-27] MEDS: ALBUTEROL SO4 2.5/IPRATROPIUM 0.5 INH SOL 3 ML VIAL.NEB. NEB SCH ×4 (07:20→20:05)
[2023-07-27] MEDS: LISINOPRIL 20 MG TABLET PO SCH (11:58)
[2023-07-27] MEDS: SPIRONOLACTONE 25 MG TABLET PO SCH (11:58)
[2023-07-27] MEDS: FUROSEMIDE 40 MG TABLET (FP) PO SCH (11:58)
[2023-07-27] MEDS: BUDESONIDE/FORMETEROL FUMARATE 160/4.5 mcg INHALER IH SCH ×2 (11:59→21:17)
[2023-07-27] MEDS: ACETAMINOPHEN 325 MG TABLET (FP) PO PRN (13:08)
[2023-07-27] MEDS: NICOTINE 14 MG/24 HOURS TOPICAL PATCH TD SCH (16:41)
[2023-07-27] MEDS: ATORVASTATIN CA 80 MG TABLET (FP) PO SCH (21:16)
[2023-07-28] MEDS: methylPREDNISolone NA SUCC 40 MG/1 ML VIAL IVPUSH SCH ×3 (01:57→17:12)
[2023-07-28] MEDS: LACTATED RINGERS SOLUTION 1,000 ML IV SCH ×2 (06:43→15:46)
[2023-07-28] MEDS: ACETAMINOPHEN 325 MG TABLET (FP) PO PRN (06:50)
[2023-07-28] MEDS: ALBUTEROL SO4 2.5/IPRATROPIUM 0.5 INH SOL 3 ML VIAL.NEB. NEB SCH ×4 (07:28→20:12)
[2023-07-28] MEDS: NICOTINE 14 MG/24 HOURS TOPICAL PATCH TD SCH (09:22)
[2023-07-28] MEDS: FUROSEMIDE 40 MG TABLET (FP) PO SCH (09:22)
[2023-07-28] MEDS: LISINOPRIL 20 MG TABLET PO SCH (09:22)
[2023-07-28] MEDS: SPIRONOLACTONE 25 MG TABLET PO SCH (09:22)
[2023-07-28] MEDS: BUDESONIDE/FORMETEROL FUMARATE 160/4.5 mcg INHALER IH SCH ×2 (09:23→21:15)
[2023-07-28] MEDS: ATORVASTATIN CA 80 MG TABLET (FP) PO SCH (21:15)
[2023-07-29] MEDS: methylPREDNISolone NA SUCC 40 MG/1 ML VIAL IVPUSH SCH ×4 (01:37→21:36)
[2023-07-29] MEDS: ALBUTEROL SO4 2.5/IPRATROPIUM 0.5 INH SOL 3 ML VIAL.NEB. NEB SCH ×4 (07:30→19:53)
[2023-07-29] MEDS: ACETAMINOPHEN 325 MG TABLET (FP) PO PRN (07:33)
[2023-07-29] MEDS: FUROSEMIDE 40 MG TABLET (FP) PO SCH (09:46)
[2023-07-29] MEDS: LISINOPRIL 20 MG TABLET PO SCH (09:46)
[2023-07-29] MEDS: SPIRONOLACTONE 25 MG TABLET PO SCH (09:46)
[2023-07-29] MEDS: NICOTINE 14 MG/24 HOURS TOPICAL PATCH TD SCH (09:46)
[2023-07-29] MEDS: BUDESONIDE/FORMETEROL FUMARATE 160/4.5 mcg INHALER IH SCH ×2 (09:47→21:39)
[2023-07-29] MEDS: ATORVASTATIN CA 80 MG TABLET (FP) PO SCH (21:36)
[2023-07-30] MEDS: ALBUTEROL SO4 2.5/IPRATROPIUM 0.5 INH SOL 3 ML VIAL.NEB. NEB SCH ×4 (07:53→19:36)
[2023-07-30] MEDS: methylPREDNISolone NA SUCC 40 MG/1 ML VIAL IVPUSH SCH ×2 (09:18→21:53)
[2023-07-30] MEDS: NICOTINE 14 MG/24 HOURS TOPICAL PATCH TD SCH (09:19)
[2023-07-30] MEDS: SPIRONOLACTONE 25 MG TABLET PO SCH (09:19)
[2023-07-30] MEDS: LISINOPRIL 20 MG TABLET PO SCH (09:19)
[2023-07-30] MEDS: ACETAMINOPHEN 325 MG TABLET (FP) PO PRN ×2 (09:19→19:45)
[2023-07-30] MEDS: FUROSEMIDE 40 MG TABLET (FP) PO SCH (09:19)
[2023-07-30] MEDS: BUDESONIDE/FORMETEROL FUMARATE 160/4.5 mcg INHALER IH SCH ×2 (09:23→21:51)
[2023-07-30 10:33] LABS: HEMATOCRIT 35.3 % (35.4-49); HEMOGLOBIN 11.2 GM/dL (11.7-16.9); MCH 26.9 pg (25.7-33.7); MCHC 31.6 g/dl (32.0-35.9); MEAN CELL VOLUME 84.9 fl (80-96); PLATELET COUNT 358 10^3/uL (134-434); RBC 4.16 M/mm3 (4.00-5.60); RDW 15.9 % (11.9-15.9); WHITE BLOOD COUNT 14.7 K/mm3 (4.0-10.0)
[2023-07-30 10:57] LABS: POTASSIUM 4.2 mmol/L (3.5-5.1)
[2023-07-30 11:01] LABS: CALCIUM 8.7 mg/dL (8.5-10.1)
[2023-07-30 11:02] LABS: ALBUMIN 2.8 g/dl (3.4-5.0); BLOOD UREA NITROGEN 19.6 mg/dL (7-18)
[2023-07-30 11:05] LABS: CREATININE 0.6 mg/dL (0.55-1.3)
[2023-07-30 11:06] LABS: BILIRUBIN,TOTAL 0.3 mg/dL (0.2-1)
[2023-07-30 11:07] LABS: TOT PROT 6.8 g/dl (6.4-8.2)
[2023-07-30] MEDS: ATORVASTATIN CA 80 MG TABLET (FP) PO SCH (21:51)
[2023-07-31] MEDS: ALBUTEROL SO4 2.5/IPRATROPIUM 0.5 INH SOL 3 ML VIAL.NEB. NEB SCH ×4 (07:46→20:30)
[2023-07-31] MEDS: SPIRONOLACTONE 25 MG TABLET PO SCH (09:15)
[2023-07-31] MEDS: FUROSEMIDE 40 MG TABLET (FP) PO SCH (09:15)
[2023-07-31] MEDS: LISINOPRIL 20 MG TABLET PO SCH (09:16)
[2023-07-31] MEDS: methylPREDNISolone NA SUCC 40 MG/1 ML VIAL IVPUSH SCH ×2 (09:17→21:14)
[2023-07-31] MEDS: BUDESONIDE/FORMETEROL FUMARATE 160/4.5 mcg INHALER IH SCH ×2 (09:17→21:15)
[2023-07-31] MEDS: NICOTINE 14 MG/24 HOURS TOPICAL PATCH TD SCH (09:18)
[2023-07-31] MEDS: ACETAMINOPHEN 325 MG TABLET (FP) PO PRN ×2 (09:50→18:30)
[2023-07-31] MEDS: ATORVASTATIN CA 80 MG TABLET (FP) PO SCH (21:14)
[2023-08-01] MEDS: ACETAMINOPHEN 325 MG TABLET (FP) PO PRN ×3 (05:50→23:28)
[2023-08-01] MEDS: ALBUTEROL SO4 2.5/IPRATROPIUM 0.5 INH SOL 3 ML VIAL.NEB. NEB SCH ×5 (08:45→21:48)
[2023-08-01] MEDS: LISINOPRIL 20 MG TABLET PO SCH (09:57)
[2023-08-01] MEDS: SPIRONOLACTONE 25 MG TABLET PO SCH (09:58)
[2023-08-01] MEDS: NICOTINE 14 MG/24 HOURS TOPICAL PATCH TD SCH (09:58)
[2023-08-01] MEDS: methylPREDNISolone NA SUCC 40 MG/1 ML VIAL IVPUSH SCH ×2 (09:58→21:21)
[2023-08-01] MEDS: FUROSEMIDE 40 MG TABLET (FP) PO SCH (09:58)
[2023-08-01] MEDS: BUDESONIDE/FORMETEROL FUMARATE 160/4.5 mcg INHALER IH SCH ×2 (10:07→21:21)
[2023-08-01 15:36] VITALS: RESP 18
[2023-08-01] MEDS: ATORVASTATIN CA 80 MG TABLET (FP) PO SCH (21:20)
[2023-08-02] MEDS: ALBUTEROL SO4 2.5/IPRATROPIUM 0.5 INH SOL 3 ML VIAL.NEB. NEB SCH ×4 (07:40→20:30)
[2023-08-02] MEDS: methylPREDNISolone NA SUCC 40 MG/1 ML VIAL IVPUSH SCH ×2 (09:11→21:38)
[2023-08-02] MEDS: LISINOPRIL 20 MG TABLET PO SCH (09:12)
[2023-08-02] MEDS: FUROSEMIDE 40 MG TABLET (FP) PO SCH (09:12)
[2023-08-02] MEDS: SPIRONOLACTONE 25 MG TABLET PO SCH (09:12)
[2023-08-02] MEDS: BUDESONIDE/FORMETEROL FUMARATE 160/4.5 mcg INHALER IH SCH ×2 (09:12→21:38)
[2023-08-02] MEDS: NICOTINE 14 MG/24 HOURS TOPICAL PATCH TD SCH (09:12)
[2023-08-02] MEDS: ATORVASTATIN CA 80 MG TABLET (FP) PO SCH (21:38)
[2023-08-02] MEDS: ACETAMINOPHEN 325 MG TABLET (FP) PO PRN (21:41)
[2023-08-03] MEDS: ALBUTEROL SO4 2.5/IPRATROPIUM 0.5 INH SOL 3 ML VIAL.NEB. NEB SCH ×3 (08:18→16:01)
[2023-08-03] MEDS: methylPREDNISolone NA SUCC 40 MG/1 ML VIAL IVPUSH SCH (10:17)
[2023-08-03] MEDS: NICOTINE 14 MG/24 HOURS TOPICAL PATCH TD SCH (10:17)
[2023-08-03] MEDS: BUDESONIDE/FORMETEROL FUMARATE 160/4.5 mcg INHALER IH SCH (10:18)
[2023-08-03] MEDS: FUROSEMIDE 40 MG TABLET (FP) PO SCH (10:18)
[2023-08-03] MEDS: SPIRONOLACTONE 25 MG TABLET PO SCH (10:18)
[2023-08-03] MEDS: LISINOPRIL 20 MG TABLET PO SCH (10:18)
[2023-08-03] MEDS ORDERED: predniSONE 20 MG TABLET (UD) PO SCH (13:45)
[2023-08-03 14:39] VITALS: BP 115/72; PULSE 89; TEMP 98.1
[2023-08-03] MEDS: ACETAMINOPHEN 325 MG TABLET (FP) PO PRN (15:18)
== END 2023-08-03 18:06 | disposition home or self-care (01) | DRG 190 ==
LOC: JER 05:30 → JERBED 07:37 → J6S 18:16
PROVIDERS: ADMIT Internal Medicine; ATTEND Internal Medicine
DX: J44.1 Chronic obstructive pulmonary disease with (acute) exacerbation (principal); J96.21 Acute and chronic respiratory failure with hypoxia; I25.10 Atherosclerotic heart disease of native coronary artery without angina pectoris; K40.90 Unilateral inguinal hernia, without obstruction or gangrene, not specified as recurrent; G47.33 Obstructive sleep apnea (adult) (pediatric); Z99.81 Dependence on supplemental oxygen; I11.0 Hypertensive heart disease with heart failure; I50.9 Heart failure, unspecified
CPT/HCPCS: 0241U-QW; 36415; 71045-TC-FY; 74177-TC; 80053; 82803; 83605; 83690; 83735; 83880; 84100; 84484; 85025; 85027; 85610; 85730; 86850; 86900; 86901; 93005; 93010; 94640; 94761; 99285-25; J1100; Q9967

== ENCOUNTER 2023-12-04 04:20 | Inpatient (IN) | payer OTHER ==
[~2023-12-04 04:20] MED LIST: ceFAZolin SODIUM 1 GM VIAL IVPB ONE
[2023-12-04] MEDS ORDERED: ONDANSETRON 4 MG/2 ML VIAL IVPUSH PRN (07:59)
[2023-12-04] MEDS ORDERED: oxyCODONE HCL 5 MG TABLET PO PRN ×2 (07:59→15:36)
[2023-12-04] MEDS ORDERED: LACTATED RINGERS SOLUTION 1,000 ML IV SCH (08:00)
[2023-12-04] MEDS ORDERED: BUPIVACAINE LIPOSOME/PF (EXPAREL) 266 MG/20 ML VIAL ONE (08:04)
[2023-12-04] MEDS ORDERED: BUPIVACAINE HCL/PF 0.5% (5MG/ML) 10 ML VIAL ONE (08:04)
[2023-12-04] MEDS ORDERED: ceFAZolin SODIUM 1 GM VIAL IVPB ONE (08:45)
[2023-12-04] MEDS ORDERED: BUPIVACAINE HCL/PF 0.5% (5MG/ML) 10 ML VIAL IJ ONE (08:53)
[2023-12-04] MEDS ORDERED: BUPIVACAINE LIPOSOME/PF (EXPAREL) 266 MG/20 ML VIAL NR ONE (08:53)
[2023-12-04] MEDS ORDERED: ALBUTEROL SO4 0.083% IH SOL 2.5 MG/3 ML VIAL.NEB. NEB ONE ×3 (12:36→18:38)
[2023-12-04] MEDS ORDERED: IPRATROPIUM BR 0.02% 0.5 MG/2.5 ML VIAL.NEB. NEB ONE ×2 (12:36→18:38)
[2023-12-04] MEDS ORDERED: ALBUTEROL SO4 2.5/IPRATROPIUM 0.5 INH SOL 3 ML VIAL.NEB. NEB ONE (13:09)
[2023-12-04] MEDS ORDERED: ALBUTEROL SO4 2.5/IPRATROPIUM 0.5 INH SOL 3 ML VIAL.NEB. NEB PRN (15:30)
[2023-12-04] MEDS ORDERED: SENNOSIDES 8.6MG TABLET (FP) PO PRN (15:38)
[2023-12-04] MEDS ORDERED: methylPREDNISolone NA SUCC 40 MG/1 ML VIAL ONE (17:59)
[2023-12-04] MEDS: methylPREDNISolone NA SUCC 40 MG/1 ML VIAL IVPUSH SCH (18:06)
[2023-12-04] MEDS: ALBUTEROL SO4 2.5/IPRATROPIUM 0.5 INH SOL 3 ML VIAL.NEB. NEB SCH (18:55)
[2023-12-04] MEDS ORDERED: ALBUTEROL SO4 0.083% IH SOL 2.5 MG/3 ML VIAL.NEB. NEB PRN (19:33)
[2023-12-04] MEDS: HEPARIN NA (PORCINE) 5,000 UNITS/ML 1ML VIAL SQ SCH (22:48)
[2023-12-04] MEDS: POLYETHYLENE GLYCOL (HEALTHYLAX) 3350 17 GM PACKET PO SCH (22:51)
[2023-12-05] MEDS: methylPREDNISolone NA SUCC 40 MG/1 ML VIAL IVPUSH SCH ×3 (01:45→17:04)
[2023-12-05 03:14] VITALS: BMI 33.6
[2023-12-05] MEDS: ALBUTEROL SO4 2.5/IPRATROPIUM 0.5 INH SOL 3 ML VIAL.NEB. NEB SCH ×4 (08:11→20:37)
[2023-12-05 09:32] LABS: BASO % 0.1 % (0-2.0); HEMATOCRIT 34.3 % (35.4-49); HEMOGLOBIN 10.7 GM/dL (11.7-16.9); MCH 27.2 pg (25.7-33.7); MCHC 31.2 g/dl (32.0-35.9); MEAN CELL VOLUME 87.4 fl (80-96); MEAN PLT VOLUME 8.2 fl (7.5-11.1); NEUT % 83.9 % (42.8-82.8); PLATELET COUNT 326 10^3/uL (134-434); RBC 3.92 M/mm3 (4.00-5.60); RDW 14.6 % (11.9-15.9); WHITE BLOOD COUNT 16.2 K/mm3 (4.0-10.0)
[2023-12-05 09:52] LABS: POTASSIUM 4.6 mmol/L (3.5-5.1)
[2023-12-05 10:02] LABS: CALCIUM 9.1 mg/dL (8.5-10.1)
[2023-12-05 10:03] LABS: ALBUMIN 3.1 g/dl (3.4-5.0); BLOOD UREA NITROGEN 13.3 mg/dL (7-18)
[2023-12-05 10:06] LABS: CREATININE 0.6 mg/dL (0.55-1.3)
[2023-12-05 10:07] LABS: BILIRUBIN,TOTAL 0.3 mg/dL (0.2-1); TOT PROT 6.7 g/dl (6.4-8.2)
[2023-12-05] MEDS: HEPARIN NA (PORCINE) 5,000 UNITS/ML 1ML VIAL SQ SCH ×2 (10:35→22:09)
[2023-12-05] MEDS: PANTOPRAZOLE 40 MG TABLET PO SCH (10:35)
[2023-12-05] MEDS: SPIRONOLACTONE 25 MG TABLET PO SCH (10:35)
[2023-12-05] MEDS: POLYETHYLENE GLYCOL (HEALTHYLAX) 3350 17 GM PACKET PO SCH ×2 (10:35→22:09)
[2023-12-05] MEDS: LISINOPRIL 20 MG TABLET PO SCH (10:35)
[2023-12-05 12:24] LABS: ARTERIAL BLD GAS O2 SATURATION 92.3 % (95-98); ARTERIAL BLOOD GAS BASE EXCESS 2.8 mmol/L (-2-2); ARTERIAL BLOOD GAS PO2 61.4 mmHg (80-100); ARTERIAL BLOOD GAS pH 7.435 (7.350-7.450)
[2023-12-05 12:25] LABS: ALLENS TEST POSITIVE
[2023-12-05] MEDS: FLUTICASONE/UMECLIDIN/VILANTER(200-62.5-25 TRELEGY ELLIPTA) INAHLER IH SCH (12:45)
[2023-12-05] MEDS: PIPERACILLIN/TAZOB 3.375 GM 3.375 GM in DEXTROSE 5%-WATER - 50 ML IVPB SCH ×2 (12:46→22:09)
[2023-12-06] MEDS: methylPREDNISolone NA SUCC 40 MG/1 ML VIAL IVPUSH SCH ×3 (02:00→17:54)
[2023-12-06] MEDS: PIPERACILLIN/TAZOB 3.375 GM 3.375 GM in DEXTROSE 5%-WATER - 50 ML IVPB SCH ×4 (02:33→21:31)
[2023-12-06] MEDS: ALBUTEROL SO4 2.5/IPRATROPIUM 0.5 INH SOL 3 ML VIAL.NEB. NEB SCH ×4 (07:10→20:15)
[2023-12-06] MEDS: HEPARIN NA (PORCINE) 5,000 UNITS/ML 1ML VIAL SQ SCH ×2 (09:08→21:30)
[2023-12-06] MEDS: LISINOPRIL 20 MG TABLET PO SCH (09:09)
[2023-12-06] MEDS: SPIRONOLACTONE 25 MG TABLET PO SCH (09:09)
[2023-12-06] MEDS: FLUTICASONE/UMECLIDIN/VILANTER(200-62.5-25 TRELEGY ELLIPTA) INAHLER IH SCH (09:09)
[2023-12-06] MEDS: POLYETHYLENE GLYCOL (HEALTHYLAX) 3350 17 GM PACKET PO SCH ×2 (09:09→21:31)
[2023-12-06] MEDS: PANTOPRAZOLE 40 MG TABLET PO SCH (09:09)
[2023-12-06] MEDS: ACETAMINOPHEN 500 MG TABLET (FP) PO PRN (09:21)
[2023-12-07] MEDS: methylPREDNISolone NA SUCC 40 MG/1 ML VIAL IVPUSH SCH ×3 (02:25→18:44)
[2023-12-07] MEDS: PIPERACILLIN/TAZOB 3.375 GM 3.375 GM in DEXTROSE 5%-WATER - 50 ML IVPB SCH ×4 (02:25→21:31)
[2023-12-07] MEDS: ALBUTEROL SO4 2.5/IPRATROPIUM 0.5 INH SOL 3 ML VIAL.NEB. NEB SCH ×4 (08:13→20:30)
[2023-12-07] MEDS: LISINOPRIL 20 MG TABLET PO SCH (09:33)
[2023-12-07] MEDS: PANTOPRAZOLE 40 MG TABLET PO SCH (09:33)
[2023-12-07] MEDS: FLUTICASONE/UMECLIDIN/VILANTER(200-62.5-25 TRELEGY ELLIPTA) INAHLER IH SCH (09:33)
[2023-12-07] MEDS: POLYETHYLENE GLYCOL (HEALTHYLAX) 3350 17 GM PACKET PO SCH ×2 (09:33→21:32)
[2023-12-07] MEDS: SPIRONOLACTONE 25 MG TABLET PO SCH (09:33)
[2023-12-07] MEDS: HEPARIN NA (PORCINE) 5,000 UNITS/ML 1ML VIAL SQ SCH ×2 (09:33→21:32)
[2023-12-07] MEDS: ACETAMINOPHEN 500 MG TABLET (FP) PO PRN (09:44)
[2023-12-07 10:44] LABS: POTASSIUM 4.5 mmol/L (3.5-5.1)
[2023-12-07 10:51] LABS: BASO % 0.1 % (0-2.0); HEMATOCRIT 29.1 % (35.4-49); HEMOGLOBIN 9.1 GM/dL (11.7-16.9); LYMPH % 7.2 % (8-40); MCH 27.5 pg (25.7-33.7); MCHC 31.4 g/dl (32.0-35.9); MEAN CELL VOLUME 87.8 fl (80-96); MEAN PLT VOLUME 8.4 fl (7.5-11.1); MONO % 5.9 % (3.8-10.2); NEUT % 86.8 % (42.8-82.8); PLATELET COUNT 268 10^3/uL (134-434); RBC 3.31 M/mm3 (4.00-5.60); RDW 14.4 % (11.9-15.9)
[2023-12-07 10:55] LABS: ALBUMIN 2.8 g/dl (3.4-5.0); CREATININE 0.7 mg/dL (0.55-1.3)
[2023-12-07 10:57] LABS: CALCIUM 8.3 mg/dL (8.5-10.1); TOT PROT 6.6 g/dl (6.4-8.2)
[2023-12-07 10:58] LABS: BLOOD UREA NITROGEN 15.8 mg/dL (7-18); MAGNESIUM 2.5 mg/dL (1.8-2.4)
[2023-12-07 11:00] LABS: BILIRUBIN,TOTAL 0.3 mg/dL (0.2-1)
[2023-12-07 11:01] LABS: PHOSPHOROUS 2.3 mg/dL (2.5-4.9)
[2023-12-07] MEDS: BENZONATATE 100 MG CAPSULE PO SCH ×2 (12:50→21:32)
[2023-12-08] MEDS ORDERED: PIPERACILLIN/TAZOBACTAM 3.375 GM VIAL IVPB ONE (02:15)
[2023-12-08] MEDS: PIPERACILLIN/TAZOB 3.375 GM 3.375 GM in DEXTROSE 5%-WATER - 50 ML IVPB SCH ×4 (02:21→20:51)
[2023-12-08] MEDS: methylPREDNISolone NA SUCC 40 MG/1 ML VIAL IVPUSH SCH ×2 (02:22→09:34)
[2023-12-08] MEDS: BENZONATATE 100 MG CAPSULE PO SCH ×3 (06:18→23:57)
[2023-12-08] MEDS: ALBUTEROL SO4 2.5/IPRATROPIUM 0.5 INH SOL 3 ML VIAL.NEB. NEB SCH ×4 (07:40→20:00)
[2023-12-08] MEDS: LISINOPRIL 20 MG TABLET PO SCH (09:33)
[2023-12-08] MEDS: PANTOPRAZOLE 40 MG TABLET PO SCH (09:33)
[2023-12-08] MEDS: HEPARIN NA (PORCINE) 5,000 UNITS/ML 1ML VIAL SQ SCH ×2 (09:33→21:05)
[2023-12-08] MEDS: SPIRONOLACTONE 25 MG TABLET PO SCH (09:33)
[2023-12-08] MEDS: POLYETHYLENE GLYCOL (HEALTHYLAX) 3350 17 GM PACKET PO SCH ×2 (09:36→23:57)
[2023-12-08] MEDS: FLUTICASONE/UMECLIDIN/VILANTER(200-62.5-25 TRELEGY ELLIPTA) INAHLER IH SCH (09:36)
[2023-12-09] MEDS: PIPERACILLIN/TAZOB 3.375 GM 3.375 GM in DEXTROSE 5%-WATER - 50 ML IVPB SCH ×4 (02:06→21:06)
[2023-12-09] MEDS: BENZONATATE 100 MG CAPSULE PO SCH ×3 (06:00→21:06)
[2023-12-09] MEDS: ALBUTEROL SO4 2.5/IPRATROPIUM 0.5 INH SOL 3 ML VIAL.NEB. NEB SCH ×4 (07:40→20:05)
[2023-12-09 08:36] LABS: BASO % 0.1 % (0-2.0); EOS % 0.2 % (0-4.5); HEMATOCRIT 30.1 % (35.4-49); HEMOGLOBIN 9.2 GM/dL (11.7-16.9); LYMPH % 18.3 % (8-40); MCH 27.2 pg (25.7-33.7); MCHC 30.6 g/dl (32.0-35.9); MEAN CELL VOLUME 88.7 fl (80-96); MEAN PLT VOLUME 8.2 fl (7.5-11.1); MONO % 8.9 % (3.8-10.2); NEUT % 72.5 % (42.8-82.8); PLATELET COUNT 282 10^3/uL (134-434); RBC 3.39 M/mm3 (4.00-5.60); RDW 14.1 % (11.9-15.9); WHITE BLOOD COUNT 13.5 K/mm3 (4.0-10.0)
[2023-12-09 08:41] LABS: POTASSIUM 3.8 mmol/L (3.5-5.1)
[2023-12-09 08:44] LABS: ALBUMIN 2.6 g/dl (3.4-5.0); CALCIUM 8.2 mg/dL (8.5-10.1)
[2023-12-09 08:45] LABS: BLOOD UREA NITROGEN 20.3 mg/dL (7-18)
[2023-12-09 08:48] LABS: CREATININE 0.7 mg/dL (0.55-1.3)
[2023-12-09 08:49] LABS: BILIRUBIN,TOTAL 0.4 mg/dL (0.2-1); TOT PROT 6.3 g/dl (6.4-8.2)
[2023-12-09] MEDS: ACETAMINOPHEN 500 MG TABLET (FP) PO PRN (10:36)
[2023-12-09] MEDS: HEPARIN NA (PORCINE) 5,000 UNITS/ML 1ML VIAL SQ SCH ×2 (10:39→21:05)
[2023-12-09] MEDS: POLYETHYLENE GLYCOL (HEALTHYLAX) 3350 17 GM PACKET PO SCH ×2 (10:39→21:05)
[2023-12-09] MEDS: methylPREDNISolone NA SUCC 40 MG/1 ML VIAL IVPUSH SCH (10:39)
[2023-12-09] MEDS: SPIRONOLACTONE 25 MG TABLET PO SCH (10:40)
[2023-12-09] MEDS: PANTOPRAZOLE 40 MG TABLET PO SCH (10:40)
[2023-12-09] MEDS: LISINOPRIL 20 MG TABLET PO SCH (10:40)
[2023-12-09] MEDS: FLUTICASONE/UMECLIDIN/VILANTER(200-62.5-25 TRELEGY ELLIPTA) INAHLER IH SCH (10:40)
[2023-12-09 13:46] LABS: ANISOCYTOSIS 2+; MACROCYTOSIS 0
[2023-12-09] MEDS ORDERED: guaiFENesin 200 MG/10 ML 10 ML UNIT-DOSE CUPS PO ONE (21:53)
[2023-12-10] MEDS: PIPERACILLIN/TAZOB 3.375 GM 3.375 GM in DEXTROSE 5%-WATER - 50 ML IVPB SCH ×4 (02:17→22:08)
[2023-12-10] MEDS: ACETAMINOPHEN 500 MG TABLET (FP) PO PRN (04:46)
[2023-12-10] MEDS: BENZONATATE 100 MG CAPSULE PO SCH ×3 (06:32→22:08)
[2023-12-10] MEDS: ALBUTEROL SO4 2.5/IPRATROPIUM 0.5 INH SOL 3 ML VIAL.NEB. NEB SCH ×4 (07:25→20:35)
[2023-12-10] MEDS ORDERED: guaiFENesin 200 MG/10 ML 10 ML UNIT-DOSE CUPS PO PRN (08:56)
[2023-12-10] MEDS: POLYETHYLENE GLYCOL (HEALTHYLAX) 3350 17 GM PACKET PO SCH ×2 (09:05→22:56)
[2023-12-10] MEDS: PANTOPRAZOLE 40 MG TABLET PO SCH (09:12)
[2023-12-10] MEDS: SPIRONOLACTONE 25 MG TABLET PO SCH (09:12)
[2023-12-10] MEDS: HEPARIN NA (PORCINE) 5,000 UNITS/ML 1ML VIAL SQ SCH ×2 (09:12→22:08)
[2023-12-10] MEDS: LISINOPRIL 20 MG TABLET PO SCH (09:12)
[2023-12-10] MEDS: methylPREDNISolone NA SUCC 40 MG/1 ML VIAL IVPUSH SCH (09:12)
[2023-12-10] MEDS: FLUTICASONE/UMECLIDIN/VILANTER(200-62.5-25 TRELEGY ELLIPTA) INAHLER IH SCH (09:14)
[2023-12-10 10:46] LABS: HEMOGLOBIN 9.6 GM/dL (11.7-16.9); MCH 27.2 pg (25.7-33.7); MCHC 30.9 g/dl (32.0-35.9); PLATELET COUNT 299 10^3/uL (134-434); RBC 3.52 M/mm3 (4.00-5.60); RDW 14.6 % (11.9-15.9); WHITE BLOOD COUNT 16.7 K/mm3 (4.0-10.0)
[2023-12-10 11:31] LABS: ANISOCYTOSIS 0; MACROCYTOSIS 0
[2023-12-10 11:43] LABS: POTASSIUM 3.6 mmol/L (3.5-5.1)
[2023-12-10 11:48] LABS: ALBUMIN 2.6 g/dl (3.4-5.0); BLOOD UREA NITROGEN 17.1 mg/dL (7-18); CALCIUM 8.5 mg/dL (8.5-10.1)
[2023-12-10 11:50] LABS: CREATININE 0.8 mg/dL (0.55-1.3)
[2023-12-10 11:52] LABS: BILIRUBIN,TOTAL 0.4 mg/dL (0.2-1); TOT PROT 6.3 g/dl (6.4-8.2)
[2023-12-11] MEDS: PIPERACILLIN/TAZOB 3.375 GM 3.375 GM in DEXTROSE 5%-WATER - 50 ML IVPB SCH ×4 (02:39→22:24)
[2023-12-11] MEDS: BENZONATATE 100 MG CAPSULE PO SCH ×3 (05:29→22:24)
[2023-12-11] MEDS: ALBUTEROL SO4 2.5/IPRATROPIUM 0.5 INH SOL 3 ML VIAL.NEB. NEB SCH ×4 (07:35→20:40)
[2023-12-11] MEDS: ACETAMINOPHEN 500 MG TABLET (FP) PO PRN (09:35)
[2023-12-11] MEDS: methylPREDNISolone NA SUCC 40 MG/1 ML VIAL IVPUSH SCH (09:35)
[2023-12-11] MEDS: PANTOPRAZOLE 40 MG TABLET PO SCH (09:35)
[2023-12-11] MEDS: POLYETHYLENE GLYCOL (HEALTHYLAX) 3350 17 GM PACKET PO SCH ×2 (09:35→22:25)
[2023-12-11] MEDS: SPIRONOLACTONE 25 MG TABLET PO SCH (09:35)
[2023-12-11] MEDS: HEPARIN NA (PORCINE) 5,000 UNITS/ML 1ML VIAL SQ SCH ×2 (09:35→22:24)
[2023-12-11] MEDS: LISINOPRIL 20 MG TABLET PO SCH (09:36)
[2023-12-11] MEDS: FLUTICASONE/UMECLIDIN/VILANTER(200-62.5-25 TRELEGY ELLIPTA) INAHLER IH SCH (09:36)
[2023-12-11] MEDS ORDERED: FUROSEMIDE 40 MG/4 ML INJECTABLE VIAL IVPUSH ONE (12:24)
[2023-12-11 13:10] LABS: HEMATOCRIT 31.3 % (35.4-49); HEMOGLOBIN 9.5 GM/dL (11.7-16.9); MCHC 30.5 g/dl (32.0-35.9); MEAN CELL VOLUME 88.7 fl (80-96); PLATELET COUNT 321 10^3/uL (134-434); RBC 3.53 M/mm3 (4.00-5.60); RDW 14.5 % (11.9-15.9); WHITE BLOOD COUNT 17.3 K/mm3 (4.0-10.0)
[2023-12-11 13:27] LABS: ANISOCYTOSIS 1+; MACROCYTOSIS 0
[2023-12-11 13:31] LABS: ALBUMIN 2.8 g/dl (3.4-5.0); BLOOD UREA NITROGEN 16.4 mg/dL (7-18); CALCIUM 8.9 mg/dL (8.5-10.1)
[2023-12-11 13:35] LABS: CREATININE 0.8 mg/dL (0.55-1.3)
[2023-12-11] MEDS: FLUTICASONE PROP 0.05% 16 GM NASAL SPRAY NS SCH (13:35)
[2023-12-11 13:36] LABS: BILIRUBIN,TOTAL 0.4 mg/dL (0.2-1); TOT PROT 6.5 g/dl (6.4-8.2)
[2023-12-11 13:39] LABS: N-TERMINAL BNP 67.4 pg/ml (5-125)
[2023-12-12] MEDS: PIPERACILLIN/TAZOB 3.375 GM 3.375 GM in DEXTROSE 5%-WATER - 50 ML IVPB SCH ×2 (02:23→10:49)
[2023-12-12] MEDS: BENZONATATE 100 MG CAPSULE PO SCH ×3 (05:20→21:09)
[2023-12-12] MEDS: ALBUTEROL SO4 2.5/IPRATROPIUM 0.5 INH SOL 3 ML VIAL.NEB. NEB SCH ×4 (07:30→20:00)
[2023-12-12] MEDS: SPIRONOLACTONE 25 MG TABLET PO SCH (10:48)
[2023-12-12] MEDS: ACETAMINOPHEN 500 MG TABLET (FP) PO PRN ×2 (10:48→20:17)
[2023-12-12] MEDS: PANTOPRAZOLE 40 MG TABLET PO SCH (10:48)
[2023-12-12] MEDS: LISINOPRIL 20 MG TABLET PO SCH (10:49)
[2023-12-12] MEDS: methylPREDNISolone NA SUCC 40 MG/1 ML VIAL IVPUSH SCH (10:49)
[2023-12-12] MEDS: HEPARIN NA (PORCINE) 5,000 UNITS/ML 1ML VIAL SQ SCH ×2 (10:49→21:08)
[2023-12-12] MEDS: POLYETHYLENE GLYCOL (HEALTHYLAX) 3350 17 GM PACKET PO SCH ×2 (10:49→21:09)
[2023-12-12] MEDS: FLUTICASONE/UMECLIDIN/VILANTER(200-62.5-25 TRELEGY ELLIPTA) INAHLER IH SCH (10:50)
[2023-12-12] MEDS: FLUTICASONE PROP 0.05% 16 GM NASAL SPRAY NS SCH (10:50)
[2023-12-13] MEDS: BENZONATATE 100 MG CAPSULE PO SCH ×3 (05:25→22:05)
[2023-12-13] MEDS: ALBUTEROL SO4 2.5/IPRATROPIUM 0.5 INH SOL 3 ML VIAL.NEB. NEB SCH (07:38)
[2023-12-13] MEDS: ACETAMINOPHEN 500 MG TABLET (FP) PO PRN ×2 (10:38→22:05)
[2023-12-13] MEDS: predniSONE 10 MG TABLET (UD) PO SCH (10:39)
[2023-12-13] MEDS: PANTOPRAZOLE 40 MG TABLET PO SCH (10:39)
[2023-12-13] MEDS: POLYETHYLENE GLYCOL (HEALTHYLAX) 3350 17 GM PACKET PO SCH ×2 (10:39→22:07)
[2023-12-13] MEDS: SPIRONOLACTONE 25 MG TABLET PO SCH (10:39)
[2023-12-13] MEDS: LISINOPRIL 20 MG TABLET PO SCH (10:39)
[2023-12-13] MEDS: FLUTICASONE PROP 0.05% 16 GM NASAL SPRAY NS SCH (10:41)
[2023-12-13] MEDS: HEPARIN NA (PORCINE) 5,000 UNITS/ML 1ML VIAL SQ SCH ×2 (10:41→22:05)
[2023-12-13] MEDS: FLUTICASONE/UMECLIDIN/VILANTER(200-62.5-25 TRELEGY ELLIPTA) INAHLER IH SCH (10:42)
[2023-12-14 04:19] LABS: HIV INTERPRETATION NEGATIVE (NEGATIVE)
[2023-12-14] MEDS: BENZONATATE 100 MG CAPSULE PO SCH ×3 (06:12→22:11)
[2023-12-14] MEDS: ALBUTEROL SO4 2.5/IPRATROPIUM 0.5 INH SOL 3 ML VIAL.NEB. NEB SCH ×4 (07:10→19:15)
[2023-12-14] MEDS: LISINOPRIL 20 MG TABLET PO SCH (10:05)
[2023-12-14] MEDS: PANTOPRAZOLE 40 MG TABLET PO SCH (10:05)
[2023-12-14] MEDS: POLYETHYLENE GLYCOL (HEALTHYLAX) 3350 17 GM PACKET PO SCH ×2 (10:05→22:11)
[2023-12-14] MEDS: predniSONE 10 MG TABLET (UD) PO SCH (10:05)
[2023-12-14] MEDS: SPIRONOLACTONE 25 MG TABLET PO SCH (10:06)
[2023-12-14] MEDS: HEPARIN NA (PORCINE) 5,000 UNITS/ML 1ML VIAL SQ SCH ×2 (10:06→22:11)
[2023-12-14] MEDS: ACETAMINOPHEN 500 MG TABLET (FP) PO PRN ×2 (10:08→13:59)
[2023-12-14] MEDS: FLUTICASONE PROP 0.05% 16 GM NASAL SPRAY NS SCH (10:12)
[2023-12-14] MEDS: FLUTICASONE/UMECLIDIN/VILANTER(200-62.5-25 TRELEGY ELLIPTA) INAHLER IH SCH (10:12)
[2023-12-14 12:36] LABS: HEMATOCRIT 30.4 % (35.4-49); HEMOGLOBIN 9.4 GM/dL (11.7-16.9); MCH 27.4 pg (25.7-33.7); MEAN CELL VOLUME 88.3 fl (80-96); MEAN PLT VOLUME 7.6 fl (7.5-11.1); PLATELET COUNT 349 10^3/uL (134-434); RBC 3.44 M/mm3 (4.00-5.60)
[2023-12-14 13:01] LABS: CALCIUM 9.1 mg/dL (8.5-10.1)
[2023-12-14 13:02] LABS: ALBUMIN 2.8 g/dl (3.4-5.0); BLOOD UREA NITROGEN 15.9 mg/dL (7-18)
[2023-12-14 13:05] LABS: CREATININE 0.7 mg/dL (0.55-1.3)
[2023-12-14 13:06] LABS: BILIRUBIN,TOTAL 0.3 mg/dL (0.2-1); TOT PROT 6.4 g/dl (6.4-8.2)
[2023-12-14 13:27] LABS: HEPATITIS B SURFACE AG MATERN NON-REACTIVE (NONREACTIVE)
[2023-12-14 13:33] LABS: ANISOCYTOSIS 1+; MACROCYTOSIS 0
[2023-12-14 13:56] LABS: HIV INTERPRETATION NEGATIVE (NEGATIVE)
[2023-12-15] MEDS: ACETAMINOPHEN 500 MG TABLET (FP) PO PRN ×2 (01:45→09:37)
[2023-12-15] MEDS: BENZONATATE 100 MG CAPSULE PO SCH ×2 (05:54→14:21)
[2023-12-15 06:18] VITALS: RESP 18
[2023-12-15] MEDS: ALBUTEROL SO4 2.5/IPRATROPIUM 0.5 INH SOL 3 ML VIAL.NEB. NEB SCH ×3 (08:20→16:24)
[2023-12-15] MEDS: predniSONE 10 MG TABLET (UD) PO SCH (09:30)
[2023-12-15] MEDS: POLYETHYLENE GLYCOL (HEALTHYLAX) 3350 17 GM PACKET PO SCH (09:30)
[2023-12-15] MEDS: HEPARIN NA (PORCINE) 5,000 UNITS/ML 1ML VIAL SQ SCH (09:30)
[2023-12-15] MEDS: PANTOPRAZOLE 40 MG TABLET PO SCH (09:30)
[2023-12-15] MEDS: SPIRONOLACTONE 25 MG TABLET PO SCH (09:30)
[2023-12-15] MEDS: LISINOPRIL 20 MG TABLET PO SCH (09:30)
[2023-12-15] MEDS: FLUTICASONE PROP 0.05% 16 GM NASAL SPRAY NS SCH (09:31)
[2023-12-15] MEDS: FLUTICASONE/UMECLIDIN/VILANTER(200-62.5-25 TRELEGY ELLIPTA) INAHLER IH SCH (09:31)
[2023-12-15 14:20] VITALS: BP 129/74; PULSE 84; TEMP 98
== END 2023-12-15 18:42 | disposition home or self-care (01) | DRG 350 ==
LOC: JASU-SURG 04:20 → JERBED 16:08 → J2C 16:46 → J8W 19:51
PROVIDERS: ADMIT Internal Medicine; ATTEND Internal Medicine
PROC: 0YU60JZ Supplement Left Inguinal Region with Synthetic Substitute, Open Approach (ICD-10-PCS; principal; 2023-12-04 08:00)
DX: K40.30 Unilateral inguinal hernia, with obstruction, without gangrene, not specified as recurrent (principal); J18.9 Pneumonia, unspecified organism; J96.01 Acute respiratory failure with hypoxia; J44.1 Chronic obstructive pulmonary disease with (acute) exacerbation; R04.2 Hemoptysis; I10 Essential (primary) hypertension; I25.10 Atherosclerotic heart disease of native coronary artery without angina pectoris; I11.0 Hypertensive heart disease with heart failure; I50.9 Heart failure, unspecified; D64.9 Anemia, unspecified; E05.90 Thyrotoxicosis, unspecified without thyrotoxic crisis or storm; J43.9 Emphysema, unspecified
CPT/HCPCS: 0241U-QW; 36415; 36600; 71045-TC-FY; 71250-TC; 80053; 82803; 83735; 83880; 84100; 85025; 86708; 86803; 87040; 87070; 87205; 87340; 87389; 88302-TC; 93005; 93010; 93970-TC; 94640; 94667; 94760; 94761; 97116-GP; 97162-GP; C1781; J1644